=== PATIENT | female | born 1935 | race Caucasian/White ===

== ENCOUNTER 2017-06-26 13:58 | Inpatient (IN) ==
[2017-06-26] MEDS ORDERED: DILTIAZEM 50 MG/10 ML VIAL IV ONE (14:09)
[2017-06-26] MEDS ORDERED: LEVOFLOXACIN INJ 750 MG in PREMIX 1 EACH IV STA (14:15)
[2017-06-26] MEDS ORDERED: DILTIAZEM 50 MG/10 ML VIAL IV STA ×2 (14:15→14:47)
--- NOTE | 2017-06-26 14:21 | Emergency Department Note ---
Arrival - Arrival Chief Complaint: Syncope ED Nursing Triage Note: pt passed out today. pt has increased heart rate. pt was treated a few weeks ago at [facility] for the same thing Mode of Arrival: Stretcher Limitations: Physical Limitation Source: Patient, Family Time Seen by Provider: 06/26/17 14:15 - History of Present Illness HPI Narrative: This 81-year-old white female presents with a history of not feeling well the last several days with complaints of nausea, generalized weakness, and intermittent dizziness. This morning in the presence of the home health nurse she had a syncopal episode without a fall being caught and helped to the bed by the nurse and family members. The spell of loss of consciousness was brief and the patient awoke before EMS arrival. At no time in association with this episode did she complain of chest pain, shortness of breath, diaphoresis, or uzair vomiting. Of note the patient was hospitalized 10 days ago at [facility] for what the family best describes as probable urosepsis. Currently the patient feels uncomfortable and on monitor reveals an SVT of 165. In association with this she does have some shortness of breath but more significant, anxiety. I was informed at the time I advised hospitalization when daughter said she had a mass on her CT at [facility] a year ago which had never been worked up. Likewise there were unaware of any kidney problems. Onset (ago): hour(s) (Patient presents approximately 1 hour post incident) Allergies/Adverse Reactions: Allergies Allergy/AdvReac Type Severity Reaction Status Date / Time Sulfa (Sulfonamide Allergy Unknown/Unable Verified 06/26/17 14:07 Antibiotics) to obtain mycin Allergy Unknown/Unable Uncoded 06/26/17 14:07 to obtain Home Medications: Home Medications Medication Instructions Recorded Confirmed Type Aspirin EC Tab 81 mg PO QPM 06/26/17 06/26/17 History Clopidogrel [Plavix] 75 mg PO QPM 06/26/17 06/26/17 History Duloxetine HCl [Duloxetine] 60 mg PO QPM 06/26/17 06/26/17 History Esomeprazole Magnesium 40 mg PO BID 06/26/17 06/26/17 History [Esomeprazole] Levofloxacin Tab [Levaquin Tab] 500 mg PO Q48H 06/26/17 06/26/17 History Levothyroxine Tab [Synthroid Tab] 75 mcg PO DAILY@0700 06/26/17 06/26/17 History Megestrol Liquid [Megace Liquid] 400 mg PO QAM 06/26/17 06/26/17 History Metoprolol Tartrate 25 mg PO BID 06/26/17 06/26/17 History Nitrofurantoin Macrocrystal 100 mg PO BID 06/26/17 06/26/17 History [Nitrofurantoin] Promethazine HCl 25 mg PO QPM 06/26/17 06/26/17 History Rosuvastatin Calcium [Crestor] 40 mg PO QPM 06/26/17 06/26/17 History Triamterene/Hctz 75-50 Tab 1 tablet PO QAM 06/26/17 06/26/17 History [Maxzide 75-50] Zolpidem Tartrate 10 mg PO BEDTIME 06/26/17 06/26/17 History amLODIPine [Norvasc] 5 mg PO QAM 06/26/17 06/26/17 History Review of System - Review of System 12 point system: reviewed and no additional remarkable complaints except as stated - Review of System Constitutional: Present: as per HPI Respiratory: Present: as per HPI Cardiovascular: Present: as per HPI Gastrointestinal: Present: as per HPI Neurological: Present: as per HPI Medical,Surgical,& Family Hx - Medical History Cardio: History of: Hypertension Neurology: History of: TIA Respiratory: History of: Respiratory Problems (only has the left lung) - Surgical History Cardiac Surgeries: Sugical HX of: Cardiac Surgery (2 triple bypass) - Social History Smoking Status: Never smoker Frequency of Alcohol Use: None Type of Drug Use: None Exam Physical Examination: GENERAL: Frail, pale, chronically ill appearing anxious white female. HEENT: Normocephalic. No trauma. Moist mucous membranes. EOMI. PERRLA. ENT NML NECK: Supple. No adenopathy. CARDIAC: Regular. No murmurs. Heart rate 165 CHEST: Clear to auscultation. No respiratory distress. O2 sat 97% ABDOMEN: Soft. Nontender. Active bowel sounds. EXTREMITIES: No trauma. Normal ROM. No pedal edema. SKIN: No diaphoresis. No rash. NEURO: Alert. Oriented 3. Motor, sensory, vibratory intact. No focal deficits. Vital Signs: Vital Signs Temperature 97.1 F L 06/26/17 14:03 Pulse Rate 163 H 06/26/17 14:03 Respiratory Rate 18 06/26/17 14:03 Blood Pressure 95/67 06/26/17 14:03 O2 Sat by Pulse Oximetry 96 06/26/17 14:03 Course Course Narrative: Patient was treated initially with IV Cardizem with good response but within an hour broke back into a rapid rate requiring retreatment and instillation of a drip. - Reevaluation(s) Reevaluation #1: Advised patient of the need for hospitalization. - Consultations Consultation #1: Discussed with Dr. Johnson who will admit the patient for further evaluation treatment. Results - Labs CBC & BMP: 06/26/17 14:19 06/26/17 14:19 Labs: I have reviewed the laboratory noted the elevated white blood cell count, hypokalemia, renal azotemia, negative enzymes, and elevated BMP. Also noted was a UDS positive for benzos and opiates. - Impressions EKG #1: SVT at 165 with left axis deviation and left bundle branch block pattern. Diffuse ST changes expected with rate. EKG #2 post Cardizem sinus rhythm with frequent PVC with normal OR interval and QRS duration. Nonspecific ST changes with no acute injury pattern noted. - Diagnostic Findings Procedure: Chest x-ray: image reviewed by me, report reviewed by me ( Cardiomegaly with persistence of severely elevated left hemidiaphragm) Disposition Clinical Impression: Supraventricular tachycardia, Syncope, Recent urosepsis, Renal insufficiency, Alleged pelvic mass Case discussed with: patient, patient's family Disposition: Still a Patient Condition: Guarded Time of Disposition: 15:18
[2017-06-26 14:31] LABS: Basophils # 0.1 10*3/uL (0.0-0.2); Basophils % 0.6 % (0.0-0.8); Eosinophils % 5.1 % (0.00-10.9); Hematocrit 35.8 VOL% (35.7-47.0); Hemoglobin 11.6 GM/DL (12.0-16.0); Immature Granulocytes % 0.8 %; Immature Granulocytes Absolute 0.15 #; Lymphocytes # 1.1 10*3/uL (1.4-4.0); Lymphocytes % 5.5 % (21.3-54.2); Mean Corpuscular HGB Conc 32.4 GM/DL (32-36); Mean Corpuscular Hemoglobin 27 PG (27-34); Mean Corpuscular Volume 84.4 FL (87-102); Mean Platelet Volume 9.4 FL (9.6-12.0); Monocytes # 1.2 10*3/uL (0.11-0.8); Monocytes % 6.4 % (1.7-12.7); Neutrophils # 15.7 10*3/uL (1.4-7.4); Neutrophils % 81.6 % (38.7-73.9); Platelet Count 316 T/CUMM (130-400); Red Blood Count 4.24 MC/CUMM (3.8-5.5); Red Cell Distribution Width 15.9 % (9.3-17.3); White Blood Count 19.2 T/CUMM (4-12)
--- NOTE | 2017-06-26 14:45 | CT Report ---
Exam: CT scan of brain without contrast Date: 06/26/2017 Indication: Syncope Comparison: None Patient's classification: Emergency department Technical: Images were obtained from the skull base to the vertex without the use of intravenous contrast. Dose reduction was performed with decreasing kv and mA and automated exposure Total DLP: 1012.1 mGy*cm Findings: Brainstem and cerebellum are demonstrated with mild atrophy of the cerebellum. Diffuse small vessel ischemic changes are present with component of atrophy of the cerebral hemispheres mildly present and enlargement of ventricles. Vascular plaque within the vertebral and internal carotid arteries. The paranasal sinuses globes and cell and mastoids are otherwise intact. Impression: 1. Global atrophy and diffuse small vessel ischemic changes. 2. No acute hemorrhage infarction or mass effect PROCEDURE INTERPRETED AT [facility] DEPARTMENT OF RADIOLOGY Final Report Signed by: Dr. Robert Ibrahim
[2017-06-26] MEDS ORDERED: SODIUM CHLORIDE 0.9% 100 ML IV ONE (14:47)
[2017-06-26] MEDS ORDERED: DILTIAZEM 100 MG VIAL.ADD IV ONE (14:47)
--- NOTE | 2017-06-26 14:47 | XRay Report ---
Exam: XR chest 1V portable Date: 06/26/2017 2:15 PM Indication: Shortness of breath Comparison: 09/26/2014 Technical: AP Findings: There is chronic elevation left hemidiaphragm. Cardiac enlargement is present with previous sternotomy. External cardiac leads are present. No obvious acute infiltrates or effusions clearly demonstrated. ASVD is present. Impression: 1. Persistent cardiomegaly and previous sternotomy without obvious decompensation 2. Chronic elevation left hemidiaphragm similar to previous study PROCEDURE INTERPRETED AT [facility] DEPARTMENT OF RADIOLOGY Final Report Signed by: Dr. Robert Ibrahim
[2017-06-26 14:49] LABS: Alanine Aminotransferase 22 U/L (13-56); Albumin 2.5 G/DL (3.4-5.0); Alkaline Phosphatase 64 U/L (45-117); Aspartate Amino Transferase 35 U/L (0-37); Bilirubin,Total < 0.39 MG/DL (0.2-1.0); Blood Urea Nitrogen 41 MG/DL (7-18); Calcium 8.1 MG/DL (8.5-10.1); Glucose 170 MG/DL (74-106); INR 1.1; Magnesium 2.5 MG/DL (1.8-2.4); Osmolality,Calculated 286.8 MOS/KG (273-304); PT Patient Result 11.2 SECS; Potassium 3.2 MMOL/L (3.5-5.1); Sodium 137 MMOL/L (136-145); Total Protein 5.6 G/DL (6.4-8.3); Troponin I Only < 0.015 NG/ML (0.00-0.045)
[2017-06-26] MEDS: DILTIAZEM INJ 100 MG in SODIUM CHLORIDE 0.9% 100 ML IV SCH (14:49)
[2017-06-26 14:57] LABS: Apearance,Urine CLOUDY (Clear); Bacteria,Urine Occasional /HPF (Few); Bilirubin,Urine Negative (Negative); Blood, Urine Negative (Negative); Glucose,Urine (UA) Negative (Negative); Ketones,Urine 5 mg/dL (Negative); Nitrite,Urine Negative (Negative); Protein,Urine 100 MG/DL; RBC,Urine 1 /HPF (0-4); Squamous Epithelial Cell,Urine Occasional /HPF (0-10); Urine Color Yellow (Yellow); Urine Specific Gravity 1.013 (1.001-1.035); Urine Urobilinogen < 2.0 EU/DL (0.2-1.0); WBC,Urine 40 /HPF (0-6)
[2017-06-26 14:59] LABS: Barbiturates Screen,Urine Negative (Negative); Benzodiazepines Screen,Urine Positive (Negative); Cannabinoid Screen,Urine Negative (Negative); Opiate Screen,Urine Positive (Negative); Phencyclidine Screen,Urine Negative (Negative)
[2017-06-26] MEDS ORDERED: ONDANSETRON 4 MG/2 ML VIAL ONE (15:00)
[2017-06-26] MEDS ORDERED: ONDANSETRON 4 MG/2 ML VIAL IV STA (15:03)
[2017-06-26] MEDS ORDERED: LEVOFLOXACIN INJ 150 ML IV ONE (15:15)
[2017-06-26] MEDS ORDERED: ONDANSETRON 4 MG/2 ML VIAL IV PRN (15:20)
[2017-06-26] MEDS ORDERED: LEVOFLOXACIN 500 MG TABLET PO SCH (17:30)
[2017-06-26 18:18] LABS: Troponin I Only < 0.015 NG/ML (0.00-0.045)
[2017-06-26] MEDS: DULoxetine 30 MG CAPSULE PO SCH (18:18)
[2017-06-26] MEDS: ASPIRIN EC 81 MG TABLET PO SCH (18:18)
[2017-06-26] MEDS: ROSUVASTATIN 20 MG TABLET PO SCH (18:18)
[2017-06-26] MEDS: CLOPIDOGREL 75 MG TABLET PO SCH (18:18)
[2017-06-26] MEDS: PROMETHAZINE 25 MG TABLET PO SCH (18:18)
--- NOTE | 2017-06-26 18:46 | Cardiology History & Physical ---
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 Cartagena Primary CARE provider: Dr. Liriano Ms. Loo is a 81 year old female with a history of coronary artery disease ( status post coronary artery bypass grafting in the remote past at [facility] (1989, 2005)), atrial fibrillation, "SVT", hypertension. The last clinic visit with Dr. Almonte that I can find was in June 2016. The last echocardiogram on record was August 2013 which demonstrated an ejection fraction of 60%. The patient is admitted for syncope. She has been unwell for a couple of months with progressive generalized weakness, ongoing anorexia, nausea and vomiting. She was recently hospitalized at an outside hospital and treated for "urosepsis". She was discharged approximately 10 days ago. In general her health has not rebounded. She has had ongoing nausea, generalized malaise and feeling of unwellness. Today, she again began to feel unwell and was trying to make her way to her bedroom when she felt extremely lightheaded and sat in a chair. They report that she "passed out". In talking to the patient, I do not believe she actually lost consciousness, but rather felt extremely weak and was unable to respond. She did not sustain any trauma with this event, did not hit her head, there was no tongue biting, no witnessed seizure activity, and no bowel or bladder incontinence. She has not had an episode like this before. She does not recall experiencing tachypalpitations prior to this event. She did not experience any chest pain or shortness of breath prior to, during or after this event. Reportedly this happened "in front of her home health nurse" , but they do not believe the blood pressure was checked at that time. When she came to the emergency room, I was told that she had "SVT", and that she "broke" with IV Cardizem. The patient did recognize she was expressing palpitations at that time. These occur infrequently, less than 1 time a month on average, and are usually short-lived, lasting only a few moments. She has not had other episodes of chest discomfort, dyspnea on exertion, lower extremity edema, orthopnea. She has just had this ongoing malaise and fatigue. There is also been a question of a possible "pelvic mass" seen on CT scan approximately 1 year ago that was never worked up. The daughter that has this image "on her cell phone" is not present. Her kidney function is worsening, I do not have a recent creatinine. She has had ongoing nausea and anorexia, no real diarrhea. There is no hematemesis, coffee-ground emesis, melena or bright red blood per rectum. She has felt febrile at home every night this past week but was not checking her temperature. She denies any cough, cold, fever. She is not experiencing any dysuria. Her white count is elevated. Both Levaquin and nitrofurantoin are listed as medications, but the family present and the patient are not sure if she is actually taking both, but they believe she is definitely taking the Levaquin as this was a discharge medication for her. She is not an anticoagulation. She does not have melena, bright red blood per rectum, and has not been falling. She has a generalized debility that has been worsening and she is requiring a tremendous amount of assistance at home. She is living with her son. She has not had any falls. Impression and plan: 1. Presyncope-this appears to be somewhat related to the arrhythmia that she had on presentation. We will work this up and evaluate her metabolic circumstance as well. We will check an echocardiogram and carotid arteries. 2. Arrhythmia-when I initially evaluated the chart, there was not an ECG present. I ordered 1, which still has not been done. However, since my initial evaluation a previous ECG was scanned into the chart which is interpreted as "SVT". By my interpretation it is a wide complex tachycardia with a left bundle branch block morphology and a QRS duration of 130 ms, QTC of 394 ms. On review of her telemetry, while she was tachycardic, this does seem to be irregular with varying width of her QRS it may in fact be rate dependent. She has a history of atrial fibrillation, and she may in fact be having paroxysmal atrial fibrillation with a rate dependent bundle branch block. We will continue to monitor this. We will optimize her rate controlling agents as tolerated. We will cycle her cardiac biomarkers, check an echocardiogram, and observe her on telemetry. When her baseline ECG returns we will evaluate her QT interval since she is on the Levaquin. We will need to consider anticoagulation if this recurs and is clearly atrial fibrillation. 3. Leukocytosis-significance of this is unknown. I will check a chest x-ray, blood cultures. Urinalysis is not clearly dirty, but has been sent for culture. We will continue her Levaquin. 4. Renal insufficiency-duration is unknown. There is a question of a pelvic mass so I will order renal ultrasound to rule out any obstructive process it could be contributing to urinary tract infection and renal insufficiency. 5. Subacute ongoing nausea and anorexia. We will obtain an abdominal ultrasound and consult gastroenterology, obtain KUB. 6. Generalized debility- We will need to get her evaluated for swing bed placement at the time of discharge. 7. History of coronary artery disease-I suspect that this pathology is somewhat stable based on her history. We will cycle her cardiac biomarkers. Home Medications Medication Instructions Recorded Confirmed Type Aspirin EC Tab 81 mg PO QPM 06/26/17 06/26/17 History Clopidogrel [Plavix] 75 mg PO QPM 06/26/17 06/26/17 History Duloxetine HCl [Duloxetine] 60 mg PO QPM 06/26/17 06/26/17 History Esomeprazole Magnesium 40 mg PO BID 06/26/17 06/26/17 History [Esomeprazole] Levofloxacin Tab [Levaquin Tab] 500 mg PO Q48H 06/26/17 06/26/17 History Levothyroxine Tab [Synthroid Tab] 75 mcg PO DAILY@0700 06/26/17 06/26/17 History Megestrol Liquid [Megace Liquid] 400 mg PO QAM 06/26/17 06/26/17 History Metoprolol Tartrate 25 mg PO BID 06/26/17 06/26/17 History Nitrofurantoin Macrocrystal 100 mg PO BID 06/26/17 06/26/17 History [Nitrofurantoin] Promethazine HCl 25 mg PO QPM 06/26/17 06/26/17 History Rosuvastatin Calcium [Crestor] 40 mg PO QPM 06/26/17 06/26/17 History Triamterene/Hctz 75-50 Tab 1 tablet PO QAM 06/26/17 06/26/17 History [Maxzide 75-50] Zolpidem Tartrate 10 mg PO BEDTIME 06/26/17 06/26/17 History amLODIPine [Norvasc] 5 mg PO QAM 06/26/17 06/26/17 History Allergies Allergy/AdvReac Type Severity Reaction Status Date / Time Sulfa (Sulfonamide Allergy Unknown/Unable Verified 06/26/17 14:07 Antibiotics) to obtain mycin Allergy Unknown/Unable Uncoded 06/26/17 14:07 to obtain 12 point system: reviewed and no additional remarkable complaints except as stated Medical,Surgical,& Family Hx - Medical History Cardio: History of: Cardiac Dysrhythmia, CAD, Hypertension Neurology: History of: TIA Respiratory: History of: Respiratory Problems (only has the left lung) - Surgical History Cardiac Surgeries: Sugical HX of: Cardiac Surgery (2 triple bypass) - Social History Smoking Status: Never smoker Frequency of Alcohol Use: None Type of Drug Use: None Lives With:: Children Functional capacity: uses cane/walker Cardiology Physical Exam - Constitutional Vitals: Vital Signs Temp Pulse Resp BP Pulse Ox 97.4 F L 89 20 104/53 90 L 06/26/17 16:35 06/26/17 16:35 06/26/17 16:35 06/26/17 16:35 06/26/17 16:35 Intake and Output 06/26/17 06/26/17 06/26/17 07:59 15:59 23:59 Intake Total 500 / 500 Balance 500 / 500 Intake: Intake - Additional IV 500 / 500 Volume (mLs) Right Antecubital 500 / 500 Other: Weight 57.153 kg 57.153 kg Patient Weight 06/26/17 23:59 Weight 57.153 kg Exam: General appearance: normal weight, no acute distress, elderly and frail with a soft 2/6 holosystolic murmur - Head Head exam: Present: normal inspection, normocephalic, atraumatic. Absent: hematoma, laceration - Eye Eye exam: Present: EOMI. Absent: conjunctival injection, nystagmus, periorbital swelling, scleral icterus, laceration to eyelids Pupils: Present: PERRL. Absent: constricted, dilated, fixed, irregular, unequal - ENT ENT exam: Present: normal exam, normal external ear exam - Neck Neck exam: Present: normal inspection. Absent: lymphadenopathy, meningismus, tenderness, thyromegaly - Respiratory Respiratory exam: Present: clear to auscultation bilaterally. Absent: accessory muscle use, chest wall tenderness - Cardiovascular Cardiovascular exam: Present: regular rate and rhythm. Absent: carotid bruit, gallop, JVD, rubs - GI/Abdominal GI/Abdominal exam: Present: normal bowel sounds, soft. Absent: distended, firm , guarding, hernia, mass, tenderness, rebound. - Extremities Exam Extremities exam: Present: normal inspection, normal capillary refill. Absent: calf tenderness, edema - Back Exam Back exam: Present: normal inspection. Absent: muscle spasm, vertebral tenderness - Neurological Exam Neurological exam: Present: alert, oriented X3, grossly intact without resting or intention tremor - Psychiatric Psychiatric exam: Present: normal affect, normal mood - Skin Skin exam: Present: normal color, warm, dry, intact. Absent: cyanosis, diaphoretic, rash, urticaria Result/EKG - Labs CBC & BMP: 06/26/17 14:19 06/26/17 14:19 Lab Results: I have reviewed the past 24 hour labs Labs: Laboratory Results - last 24 hr 06/26/17 06/26/17 06/26/17 14:15 14:19 14:19 WBC 19.2 H RBC 4.24 Hgb 11.6 L Hct 35.8 MCV 84.4 L MCH 27 MCHC 32.4 RDW 15.9 Plt Count 316 MPV 9.4 L Neut % (Auto) 81.6 H Lymph % (Auto) 5.5 L Callahan % (Auto) 6.4 Eos % (Auto) 5.1 Baso % (Auto) 0.6 Neut # (Auto) 15.7 H Lymph # (Auto) 1.1 L Callahan # (Auto) 1.2 H Eos # (Auto) 1.0 H Baso # (Auto) 0.1 Immature Gran % 0.8 Nucleated RBC % 0.0 Immature Gran # 0.15 Nucleated RBCs # 0.00 Immature Plt Fraction 0.0 INR 1.1 PT Patient/Control Mix 11.2 Sodium Potassium Chloride Carbon Dioxide Anion Gap BUN Creatinine GFR Calculation BUN/Creatinine Ratio Glucose Calculated Osmolality Lactic Acid 3.0 H Calcium Magnesium Total Bilirubin AST ALT Alkaline Phosphatase Total Creatine Kinase CK-MB (CK-2) Troponin I B-Natriuretic Peptide Total Protein Albumin Globulin Albumin/Globulin Ratio Urine Color Urine Appearance Urine pH Ur Specific [place] Urine Protein Urine Glucose (UA) Urine Ketones Urine Blood Urine Nitrate Urine Bilirubin Urine Urobilinogen Urine Leukocytes Urine RBC Urine WBC Urine WBC Clumps Ur Squamous Epith Cells Urine Bacteria Ur Culture Indicated? Urine Opiates Screen Ur Barbiturates Screen Ur Phencyclidine Scrn U Amphetamine/Methamph U Benzodiazepines Scrn U Cocaine Metab Screen U Cannabinoids Screen 06/26/17 06/26/17 06/26/17 14:19 14:19 14:41 WBC RBC Hgb Hct MCV MCH MCHC RDW Plt Count MPV Neut % (Auto) Lymph % (Auto) Callahan % (Auto) Eos % (Auto) Baso % (Auto) Neut # (Auto) Lymph # (Auto) Callahan # (Auto) Eos # (Auto) Baso # (Auto) Immature Gran % Nucleated RBC % Immature Gran # Nucleated RBCs # Immature Plt Fraction INR PT Patient/Control Mix Sodium 137 Potassium 3.2 L Chloride 99 Carbon Dioxide 28 Anion Gap 13.2 BUN 41 H Creatinine 2.60 H GFR Calculation 15 BUN/Creatinine Ratio 15.00 Glucose 170 H Calculated Osmolality 286.8 Lactic Acid Calcium 8.1 L Magnesium 2.5 H Total Bilirubin < 0.39 AST 35 ALT 22 Alkaline Phosphatase 64 Total Creatine Kinase 24 L CK-MB (CK-2) < 1.0 Troponin I < 0.015 B-Natriuretic Peptide 409 H Total Protein 5.6 L Albumin 2.5 L Globulin 3.1 Albumin/Globulin Ratio 0.8 L Urine Color Yellow Urine Appearance Cloudy Urine pH 6.0 Ur Specific [place] 1.013 Urine Protein 100 Urine Glucose (UA) Negative Urine Ketones 5 Urine Blood Negative Urine Nitrate Negative Urine Bilirubin Negative Urine Urobilinogen < 2.0 H Urine Leukocytes Trace Urine RBC 1 Urine WBC 40 Urine WBC Clumps Occasional Ur Squamous Epith Cells Occasional Urine Bacteria Occasional Ur Culture Indicated? Results to follow Urine Opiates Screen Ur Barbiturates Screen Ur Phencyclidine Scrn U Amphetamine/Methamph U Benzodiazepines Scrn U Cocaine Metab Screen U Cannabinoids Screen 06/26/17 06/26/17 14:41 17:35 WBC RBC Hgb Hct MCV MCH MCHC RDW Plt Count MPV Neut % (Auto) Lymph % (Auto) Callahan % (Auto) Eos % (Auto) Baso % (Auto) Neut # (Auto) Lymph # (Auto) Callahan # (Auto) Eos # (Auto) Baso # (Auto) Immature Gran % Nucleated RBC % Immature Gran # Nucleated RBCs # Immature Plt Fraction INR PT Patient/Control Mix Sodium Potassium Chloride Carbon Dioxide Anion Gap BUN Creatinine GFR Calculation BUN/Creatinine Ratio Glucose Calculated Osmolality Lactic Acid Calcium Magnesium Total Bilirubin AST ALT Alkaline Phosphatase Total Creatine Kinase 30 D CK-MB (CK-2) < 1.0 Troponin I < 0.015 B-Natriuretic Peptide Total Protein Albumin Globulin Albumin/Globulin Ratio Urine Color Urine Appearance Urine pH Ur Specific [place] Urine Protein Urine Glucose (UA) Urine Ketones Urine Blood Urine Nitrate Urine Bilirubin Urine Urobilinogen Urine Leukocytes Urine RBC Urine WBC Urine WBC Clumps Ur Squamous Epith Cells Urine Bacteria Ur Culture Indicated? Urine Opiates Screen Positive H Ur Barbiturates Screen Negative Ur Phencyclidine Scrn Negative U Amphetamine/Methamph Negative U Benzodiazepines Scrn Positive H U Cocaine Metab Screen Negative U Cannabinoids Screen Negative - Diagnostic Findings Procedure: CT: report reviewed by me - EKG EKG results: interpreted by me (Wide complex tachycardia with left bundle branch block pattern)
--- NOTE | 2017-06-26 19:26 | XRay Report ---
Exam: XR KUB Date: 06/26/2017 6:58 PM Indication: Nausea and vomiting Comparison: None Technical: Supine abdomen Findings: There is elevation left hemidiaphragm with cardiomegaly and previous sternotomy. Previous cholecystectomy clips are present. Vascular plaque in aorta iliac vessels. Previous right hip pinning with sliding Johnson compression screw and sideplate. Surgical clips in the left inguinal region. Phleboliths are present. External cardiac leads are present. Nonspecific GI pattern is noted. Impression: 1. No obvious acute intra-abdominal pathology clearly demonstrated 2. Vascular calcinosis 3. Chronic elevation left hemidiaphragm and cardiomegaly 4. Previous right hip pinning 5. Previous surgical changes right upper quadrant and left inguinal region PROCEDURE INTERPRETED AT [facility] DEPARTMENT OF RADIOLOGY Final Report Signed by: Dr. Robert Ibrahim
--- NOTE | 2017-06-26 20:40 | Ultrasound Report ---
Exam: US carotid duplex BI Date: 06/26/2017 6:58 PM Indication: Syncopal episode Findings: Grayscale color flow analysis and spectral analysis imaging was performed with image stored and captured. Right Side Flow velocities centimeters per second Common carotid artery: 57 Proximal ICA: 191 Distal ICA: 106 External carotid artery: 73 Vertebral artery: 55 ICA/CCA ratio: 3. Measurements in millimeters Distal ICA: 4.3 Left SIde Flow velocities centimeters per second Common carotid artery: 101 Proximal ICA: 159 Distal ICA: 116 External carotid artery: 82 Vertebral artery: Not visualized ICA/CCA ratio: 1.6 Measurements in millimeters Distal ICA: 5.6 Atherosclerotic plaque in the common carotid artery left greater than right. Considerable plaque in the left carotid bulb and plaque in the right carotid bulb and takeoff the internal carotid artery. Mild spectral broadening Impression: 1. Elevated velocity right internal carotid artery. Findings Suggest approximately 50-70% stenosis of the right ICA 2. Approximately 16-49% stenosis left ICA 3. Nonvisualization of the left vertebral artery. CT angiography or formal arteriography recommended. Today studies were performed utilizing indirect NASCET criteria The ultrasound images were stored and captured PROCEDURE INTERPRETED AT [facility] DEPARTMENT OF RADIOLOGY Final Report Signed by: Dr. Robert Ibrahim
--- NOTE | 2017-06-26 20:43 | Ultrasound Report ---
Exam: US abdomen Date:06/26/2017 6:58 PM Indication: Nausea and vomiting Comparison: None Findings: Liver: 13.3 cm. No focal abnormality present. Gallbladder: Previous cholecystectomy. CBD: 4.2 mm. Pancreas: Normal size shape and configuration Kidneys Right kidney: 7.8 x 4.2 x 4.3 cm. No hydronephrosis or perinephric fluid collection Left kidney: 5.2 x 2.6 x 2.6 cm No hydronephrosis or perinephric fluid collection tiny cysts present in the left kidney Aorta IVC: No obvious aneurysm. The IVC is patent Spleen: 8.5 x 2.7 x 3 cm. Impression: 1. Previous cholecystectomy 2. Atrophic left kidney with some small cyst present.. Findings consistent with a component of medical renal disease with increased echogenicity also present. Ultrasound images were stored and captured PROCEDURE INTERPRETED AT [facility] DEPARTMENT OF RADIOLOGY Final Report Signed by: Dr. Robert Ibrahim
[2017-06-26] MEDS ORDERED: NON-FORMULARY MEDICATION (Esomeprazole Magnesium [Esomeprazole] 40 MG) PO SCH (21:00)
[2017-06-26] MEDS: METOPROLOL TARTRATE 25 MG TABLET PO SCH (21:22)
[2017-06-26] MEDS: ZALEPLON 5 MG CAPSULE PO SCH (21:22)
[2017-06-26] MEDS: NITROFURANTOIN MACROCRYSTALS 100 MG CAPSULE PO SCH (21:22)
[2017-06-26] MEDS: ENOXAPARIN 30 MG/0.3 ML SYRINGE SUBCUT SCH (21:22)
[2017-06-27 00:42] LABS: Troponin I Only < 0.015 NG/ML (0.00-0.045)
[2017-06-27 05:47] LABS: Basophils # 0.1 10*3/uL (0.0-0.2); Basophils % 0.5 % (0.0-0.8); Eosinophils % 6.8 % (0.00-10.9); Hematocrit 32.8 VOL% (35.7-47.0); Hemoglobin 10.6 GM/DL (12.0-16.0); Immature Granulocytes % 0.6 %; Immature Granulocytes Absolute 0.09 #; Lymphocytes # 1.2 10*3/uL (1.4-4.0); Lymphocytes % 8.1 % (21.3-54.2); Mean Corpuscular HGB Conc 32.3 GM/DL (32-36); Mean Corpuscular Hemoglobin 27 PG (27-34); Mean Corpuscular Volume 84.8 FL (87-102); Mean Platelet Volume 9.1 FL (9.6-12.0); Monocytes # 0.8 10*3/uL (0.11-0.8); Monocytes % 5.5 % (1.7-12.7); Neutrophils # 11.5 10*3/uL (1.4-7.4); Neutrophils % 78.5 % (38.7-73.9); Platelet Count 268 T/CUMM (130-400); Red Blood Count 3.87 MC/CUMM (3.8-5.5); Red Cell Distribution Width 15.9 % (9.3-17.3); White Blood Count 14.6 T/CUMM (4-12)
[2017-06-27 06:17] LABS: Magnesium 2.4 MG/DL (1.8-2.4); Osmolality,Calculated 285.5 MOS/KG (273-304); Potassium 3.8 MMOL/L (3.5-5.1)
[2017-06-27 06:22] LABS: Troponin I Only < 0.015 NG/ML (0.00-0.045)
[2017-06-27 06:26] LABS: Risk Ratio 4.11; VLDL CHOLESTEROL 32.2 MG/DL
[2017-06-27] MEDS: LEVOTHYROXINE 75 MCG TABLET PO SCH (06:42)
[2017-06-27] MEDS: DILTIAZEM INJ 100 MG in SODIUM CHLORIDE 0.9% 100 ML IV SCH ×2 (07:30→18:17)
--- NOTE | 2017-06-27 08:41 | EKG Report ---
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
--- NOTE | 2017-06-27 09:28 | EKG Report ---
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
[2017-06-27] MEDS: TRIAMTERENE/HCTZ 75-50 MG TABLET PO SCH (09:58)
[2017-06-27] MEDS: PANTOPRAZOLE 40 MG TABLET PO SCH (09:58)
[2017-06-27] MEDS: MEGESTROL 400 MG/10 ML UDCUP PO SCH (09:58)
[2017-06-27] MEDS: METOPROLOL TARTRATE 25 MG TABLET PO SCH ×2 (09:58→21:58)
[2017-06-27] MEDS: NITROFURANTOIN MACROCRYSTALS 100 MG CAPSULE PO SCH ×2 (09:58→21:57)
--- NOTE | 2017-06-27 10:11 | EKG Report ---
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
--- NOTE | 2017-06-27 14:13 | Gastrointestinal Consult Note ---
Assessment and Plan - Time spent with patient Time spent with patient: Greater than 30 minutes (1) Nausea and vomiting Status: Acute Current Visit: Yes (2) Anorexia Status: Chronic Current Visit: Yes (3) UTI (urinary tract infection) Status: Acute Current Visit: Yes (4) Other specified counseling Status: Acute Current Visit: Yes History of Present Illness History of present illness: Ms. Loo is a 81 year old female Home Medications Medication Instructions Recorded Confirmed Type Aspirin EC Tab 81 mg PO QPM 06/26/17 06/26/17 History Clopidogrel [Plavix] 75 mg PO QPM 06/26/17 06/26/17 History Duloxetine HCl [Duloxetine] 60 mg PO QPM 06/26/17 06/26/17 History Esomeprazole Magnesium 40 mg PO BID 06/26/17 06/26/17 History [Esomeprazole] Levofloxacin Tab [Levaquin Tab] 500 mg PO Q48H 06/26/17 06/26/17 History Levothyroxine Tab [Synthroid Tab] 75 mcg PO DAILY@0700 06/26/17 06/26/17 History Megestrol Liquid [Megace Liquid] 400 mg PO QAM 06/26/17 06/26/17 History Metoprolol Tartrate 25 mg PO BID 06/26/17 06/26/17 History Nitrofurantoin Macrocrystal 100 mg PO BID 06/26/17 06/26/17 History [Nitrofurantoin] Promethazine HCl 25 mg PO QPM 06/26/17 06/26/17 History Rosuvastatin Calcium [Crestor] 40 mg PO QPM 06/26/17 06/26/17 History Triamterene/Hctz 75-50 Tab 1 tablet PO QAM 06/26/17 06/26/17 History [Maxzide 75-50] Zolpidem Tartrate 10 mg PO BEDTIME 06/26/17 06/26/17 History amLODIPine [Norvasc] 5 mg PO QAM 06/26/17 06/26/17 History Allergies Allergy/AdvReac Type Severity Reaction Status Date / Time Sulfa (Sulfonamide Allergy Unknown/Unable Verified 06/26/17 14:07 Antibiotics) to obtain mycin Allergy Unknown/Unable Uncoded 06/26/17 14:07 to obtain Medical,Surgical,& Family Hx - Medical History Cardio: History of: Cardiac Dysrhythmia, CAD, Hypertension Neurology: History of: TIA Respiratory: History of: Respiratory Problems (only has the left lung) - Surgical History Cardiac Surgeries: Sugical HX of: Cardiac Surgery (2 triple bypass) - Social History Smoking Status: Never smoker Frequency of Alcohol Use: None Type of Drug Use: None Exam - Constitutional Vitals: Period Temp Pulse Resp BP Sys/Pate Pulse Ox Last 24 Hr 96.6 F-97.7 F 82-99 12-20 104-137/53-68 90-100 Results - Labs CBC & BMP: 06/27/17 05:32 06/27/17 05:32 Note Addendum: PLEASE NOTE -- automatic citation of patient information is unavoidable in this electronic note. I have made a reasonable effort to review the information cited , but it is not a part of my evaluation, impression, or recommendation unless specifically discussed in the dictated text that follows. As well, voice recognition software was used in the creation of this clinical note. Reasonable effort was made to identify and correct gross errors. Despite proofreading, errors in pot operator may be present, including nonsense verbiage at times. If you encounter such an error, please contact me at for discussion and correction. -- [place] Chief complaint: nausea with anorexia History of present illness: This is a new patient, a 81-year-old female seen by consultation for evaluation of chronic nausea with anorexia. The patient is admitted to cardiology service under the care of Dr. Johnson with a primary diagnosis of pre-syncope with arrhythmia. The patient was admitted last evening through the emergency department with primary complaint of dizziness, lightheadedness, and pre-syncopal episode. Evaluation at that time revealed a tachyarrhythmia initially characterized as supraventricular tachycardia in the emergency department but further reviewed by cardiology with concern for paroxysmal atrial fibrillation and rate dependent bundle branch block. The patient was admitted to the telemetry floor with institution of pharmacologic rate control and plan for further testing to include biomarkers, evolution of rhythm, and mechanical integrity of the heart. On review of systems the patient reported persistent loss of appetite with ongoing nausea but no significant change in her bowel pattern and no overt gastrointestinal bleeding. She has not had prior gastroenterology evaluation for this. With supportive care here, she reports improvement of symptoms and has been able to take some food today. She is accompanied by her two sons, one of which is her primary security auditor and provides much of the history. Both patient and son agree that symptoms have been going on for 6 to 12 months, at least, and seem to be exacerbated with recurrent urinary tract infections. They report a history of gastrointestinal evaluation in the past but the patient believes it has been many years. 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 She is unaware of specifics with respect to this. She is comfortable at the moment. Patient denies fever, chills, night sweats, rigors, headache, neck pain, visual changes, redness of the eyes, dysphagia, odynophagia, difficulty chewing, chest pain, weight loss, hematemesis, diarrhea, hematochezia, melena, proctalgia, constipation, change in bowel pattern generally, skin changes, temperature regulation issues, flushing, easy bleeding/bruising, musculoskeletal pain, mental status change, numbness/weakness in the extremities, yellowing of the eyes/skin, cutaneous eruptions, family history of gastrointestinal cancer and colon polyps, and other complaints in general. Review of systems: 12 point review of systems was negative except as documented above. Outpatient medications: aspirin, Plavix, duloxetine, Nexium, Levaquin, Synthroid , megace, metoprolol, Nitrofurantoin, promethazine, Crestor, Maxzide, zolpidem, Norvasc Inpatient medications: aspirin, Plavix, diltiazem, Cymbalta, Lovenox, [place], Levaquin, Synthroid, megace, Lopressor, Macrodantin, Zofran, Protonix, Phenergen , Crestor, Maxzide, [place] Past Medical History: coronary artery disease status post triple bypass, cardiac dysrhythmia, hypertension, transient ischemic attack, right pulmectomy Social history: negative tobacco. Negative alcohol Family history: no gastrointestinal cancers Physical examination: Vital Signs: Current vital signs reviewed and documented above. General Appearance: lying in bed. Comfortable. No apparent distress. Head: Normocephalic. Neck: Palpation of the neck revealed no abnormalities. Eyes: No scleral icterus. No scleral injection. No conjunctival pallor. Oral Cavity: Odor of breath was normal. No drooling was observed. Lips showed no abnormalities. Floor of the mouth showed no abnormalities. Pharynx: Oropharynx was normal. Lungs: Respiration rhythm was normal but depth was asymmetric with rise on the left. Cardiovascular: Heart rate and rhythm were normal. Abdomen: abdomen was not distended. Abdominal palpation revealed no tenderness and no hepatosplenomegaly. Ascites was not discovered. Abdominal auscultation revealed positive bowel sounds. Musculoskeletal System: Musculoskeletal system was grossly normal. Neurological: level of consciousness was normal. Speech was normal. Skin: General appearance was normal. Color and pigmentation were normal. No skin lesions. Laboratory: white blood count 14.6, hemoglobin 10.6, MCV 85, platelets 268, segmented neutrophils 79%, INR 1.1, PT 11.2, ALT 22, AST 35, alkaline phosphatase 64, total bilirubin 0.4, lactate 3.0, albumin 2.5, amylase 155, lipase 171, creatinine 2.5, urine ketones 5 mg/dL, white blood cells 40 per high powered field, creatinine kinase 28, troponin undetectable Microbiology: urine culture pending Radiology: right upper quadrant ultrasound, June 26, 2017 previous cholecystectomy; atrophic left kidney consistent with medical renal disease; no hepatomegaly or evidence of fibrosis/cirrhosis; normal caliber common bile duct ; normal appearing pancreas; normal size/shape spleen Impressions: #1. Nausea with vomiting with reported alteration in anatomy after removal of the right lung, altered flow of the food stream is likely and mechanical impingement on the gastric corpus is also likely. This would probably, reliably , lead to nausea and may be the entire underlying problem. As well, the patient seems to have urinary tract infection which can lead to nausea and polypharmacy which can lead to nausea. The first step in evaluation should probably be a upper G.I. series to better characterize the current anatomy followed, likely, by upper endoscopy for mucosal inspection. In the interim, continued proton pump inhibitor is reasonable as is continued antibiotic. We will follow up with further recommendations pending results of these exams. #2. Anorexia -- with altered mechanics, decreased appetite is likely. As discussed above, further evaluation will be necessary to understand the anatomy prior to making a reliable set of recommendations. #3. Urinary tract infection -- urinalysis is consistent with same. It is common for patients in this age range to have systemic symptoms associated with typical infections, and it is likely that this patient's urinary tract infection is contributing to her gastrointestinal symptoms. Whether this is the primary cause of ongoing anorexia, particularly, is another question. #4. Other specified counseling -- The patient was seen for greater than 30 minutes. The patient was counseled for greater than 50% of this time regarding differential diagnosis, likely diagnosis, diagnostic and therapeutic alternatives, risks/benefits/alternatives of medications and procedures, and plan of care generally. The patient expressed understanding and wishes to proceed. Recommendations: -- upper G.I. series -- upper endoscopy based on findings of radiology -- continue proton pump inhibitor -- continue anti-emetic -- clear liquid diet for now -- thank you for this consultation. Dr. Pond will assume G.I. care for this patient tomorrow.
--- NOTE | 2017-06-27 14:18 | Cardiology Progress Note ---
Assessment and Plan - Time spent with patient Time spent with patient: Greater than 30 minutes (Examination chart review documentation) (1) Chronic renal insufficiency, stage III (moderate) Status: Acute Current Visit: Yes (2) History of pelvic mass Status: Acute Current Visit: Yes (3) Pre-syncope Status: Acute Current Visit: Yes (4) Atrial fibrillation Status: Chronic Current Visit: Yes Qualifiers: Atrial fibrillation type: paroxysmal Qualified Code(s): I48.0 - Paroxysmal atrial fibrillation (5) Wide-complex tachycardia Status: Acute Current Visit: Yes (6) Coronary artery disease Status: Chronic Current Visit: Yes Qualifiers: Coronary Disease-Associated Artery/Lesion type: [place] artery [place] vs. transplanted heart: [place] heart Associated angina: without angina Qualified Code(s): I25.10 - Atherosclerotic heart disease of [place] coronary artery without angina pectoris (7) Leukocytosis Status: Acute Current Visit: Yes (8) Debility Status: Chronic Current Visit: Yes (9) Nausea and vomiting Status: Acute Current Visit: Yes (10) Anorexia Status: Chronic Current Visit: Yes (11) UTI (urinary tract infection) Status: Acute Current Visit: Yes Cardiology - PN: Subj Interval history: I discussed with Dr. Johnson earlier today I saw and examined the patient with her family at the bedside. The patient has had a progressive downhill course of the last several weeks and actually had a 7 or 8 day admission to the [facility]. Yesterday she had an episode where she had near syncope and does not sound like she had true syncope is not clear what was associated with palpitations or not she simply came for evaluation and subsequent transferred here for admission to the cardiology service. The patient has lost weight she had poor p.o. intake she allegedly has a pelvic mass her abdominal ultrasound was unremarkable but no pelvic ultrasound was performed. Her daughter is present and shows me a single image of what looks like a CT scan with a mass. This was from approximately 1 year ago. Very difficult for me to know what to make of this single slice image on a small iPhone. The patient allegedly has not been evaluated or worked up for this. Please see Dr. Johnson H&P for the details of this. The patient has had several strips and EKGs with this wide complex tachycardia. In some areas it looks like there is clearly a change of morphology and probably represents rate dependent left bundle branch block. There is however one EKG with where there is no R-wave progression across the anterior precordium. This very well may be a rate dependent bundle branch block but is concerning for VT. Exam (Progress Note) - Constitutional Vitals: Period Temp Pulse Resp BP Sys/Pate Pulse Ox Last 24 Hr 96.6 F-97.7 F 82-99 12-20 104-137/53-68 90-100 General appearance: normal weight, other (She appears very frail) - Head Head exam: Present: normal inspection - Eye Eye exam: Present: EOMI Pupils: Present: LISA - ENT ENT exam: Present: normal exam - Respiratory Respiratory exam: Present: clear to auscultation bilaterally - Cardiovascular Cardiovascular exam: Present: regular rate and rhythm (No gallop) - GI/Abdominal GI/Abdominal exam: Present: normal bowel sounds (I do not feel an abdominal mass ) - Extremities Exam Extremities exam: Present: normal inspection - Neurological Exam Neurological exam: Present: oriented X3 - Psychiatric Psychiatric exam: Present: normal affect, depressed - Skin Skin exam: Present: normal color, warm, dry Result/EKG - Labs CBC & BMP: 06/27/17 05:32 06/27/17 05:32 Labs: Laboratory Results - last 24 hr 06/26/17 06/26/17 06/26/17 14:15 14:19 14:19 WBC 19.2 H RBC 4.24 Hgb 11.6 L Hct 35.8 MCV 84.4 L MCH 27 MCHC 32.4 RDW 15.9 Plt Count 316 MPV 9.4 L Neut % (Auto) 81.6 H Lymph % (Auto) 5.5 L [place] % (Auto) 6.4 Eos % (Auto) 5.1 Baso % (Auto) 0.6 Neut # (Auto) 15.7 H Lymph # (Auto) 1.1 L [place] # (Auto) 1.2 H Eos # (Auto) 1.0 H Baso # (Auto) 0.1 Immature Gran % 0.8 Nucleated RBC % 0.0 Immature Gran # 0.15 Nucleated RBCs # 0.00 Immature Plt Fraction 0.0 INR 1.1 PT Patient/Control Mix 11.2 Sodium Potassium Chloride Carbon Dioxide Anion Gap BUN Creatinine GFR Calculation BUN/Creatinine Ratio Glucose Calculated Osmolality Lactic Acid 3.0 H Calcium Magnesium Total Bilirubin AST ALT Alkaline Phosphatase Total Creatine Kinase CK-MB (CK-2) Troponin I B-Natriuretic Peptide Total Protein Albumin Globulin Albumin/Globulin Ratio Triglycerides Cholesterol LDL Cholesterol VLDL Cholesterol HDL Cholesterol Heart Disease Risk Ratio Amylase Lipase Urine Color Urine Appearance Urine pH Ur Specific [place] Urine Protein Urine Glucose (UA) Urine Ketones Urine Blood Urine Nitrate Urine Bilirubin Urine Urobilinogen Urine Leukocytes Urine RBC Urine WBC Urine WBC Clumps Ur Squamous Epith Cells Urine Bacteria Ur Culture Indicated? Urine Opiates Screen Ur Barbiturates Screen Ur Phencyclidine Scrn U Amphetamine/Methamph U Benzodiazepines Scrn U Cocaine Metab Screen U Cannabinoids Screen 06/26/17 06/26/17 06/26/17 14:19 14:19 14:41 WBC RBC Hgb Hct MCV MCH MCHC RDW Plt Count MPV Neut % (Auto) Lymph % (Auto) [place] % (Auto) Eos % (Auto) Baso % (Auto) Neut # (Auto) Lymph # (Auto) [place] # (Auto) Eos # (Auto) Baso # (Auto) Immature Gran % Nucleated RBC % Immature Gran # Nucleated RBCs # Immature Plt Fraction INR PT Patient/Control Mix Sodium 137 Potassium 3.2 L Chloride 99 Carbon Dioxide 28 Anion Gap 13.2 BUN 41 H Creatinine 2.60 H GFR Calculation 15 BUN/Creatinine Ratio 15.00 Glucose 170 H Calculated Osmolality 286.8 Lactic Acid Calcium 8.1 L Magnesium 2.5 H Total Bilirubin < 0.39 AST 35 ALT 22 Alkaline Phosphatase 64 Total Creatine Kinase 24 L CK-MB (CK-2) < 1.0 Troponin I < 0.015 B-Natriuretic Peptide 409 H Total Protein 5.6 L Albumin 2.5 L Globulin 3.1 Albumin/Globulin Ratio 0.8 L Triglycerides Cholesterol LDL Cholesterol VLDL Cholesterol HDL Cholesterol Heart Disease Risk Ratio Amylase Lipase Urine Color Yellow Urine Appearance Cloudy Urine pH 6.0 Ur Specific [place] 1.013 Urine Protein 100 Urine Glucose (UA) Negative Urine Ketones 5 Urine Blood Negative Urine Nitrate Negative Urine Bilirubin Negative Urine Urobilinogen < 2.0 H Urine Leukocytes Trace Urine RBC 1 Urine WBC 40 Urine WBC Clumps Occasional Ur Squamous Epith Cells Occasional Urine Bacteria Occasional Ur Culture Indicated? Results to follow Urine Opiates Screen Ur Barbiturates Screen Ur Phencyclidine Scrn U Amphetamine/Methamph U Benzodiazepines Scrn U Cocaine Metab Screen U Cannabinoids Screen 06/26/17 06/26/17 06/26/17 14:41 17:35 19:25 WBC RBC Hgb Hct MCV MCH MCHC RDW Plt Count MPV Neut % (Auto) Lymph % (Auto) [place] % (Auto) Eos % (Auto) Baso % (Auto) Neut # (Auto) Lymph # (Auto) [place] # (Auto) Eos # (Auto) Baso # (Auto) Immature Gran % Nucleated RBC % Immature Gran # Nucleated RBCs # Immature Plt Fraction INR PT Patient/Control Mix Sodium Potassium Chloride Carbon Dioxide Anion Gap BUN Creatinine GFR Calculation BUN/Creatinine Ratio Glucose Calculated Osmolality Lactic Acid Calcium Magnesium Total Bilirubin AST ALT Alkaline Phosphatase Total Creatine Kinase 30 D CK-MB (CK-2) < 1.0 Troponin I < 0.015 B-Natriuretic Peptide Total Protein Albumin Globulin Albumin/Globulin Ratio Triglycerides Cholesterol LDL Cholesterol VLDL Cholesterol HDL Cholesterol Heart Disease Risk Ratio Amylase 155 H Lipase 171.0 Urine Color Urine Appearance Urine pH Ur Specific [place] Urine Protein Urine Glucose (UA) Urine Ketones Urine Blood Urine Nitrate Urine Bilirubin Urine Urobilinogen Urine Leukocytes Urine RBC Urine WBC Urine WBC Clumps Ur Squamous Epith Cells Urine Bacteria Ur Culture Indicated? Urine Opiates Screen Positive H Ur Barbiturates Screen Negative Ur Phencyclidine Scrn Negative U Amphetamine/Methamph Negative U Benzodiazepines Scrn Positive H U Cocaine Metab Screen Negative U Cannabinoids Screen Negative 06/27/17 06/27/17 06/27/17 00:01 05:32 05:32 WBC 14.6 H RBC 3.87 Hgb 10.6 L Hct 32.8 L MCV 84.8 L MCH 27 MCHC 32.3 RDW 15.9 Plt Count 268 MPV 9.1 L Neut % (Auto) 78.5 H Lymph % (Auto) 8.1 L [place] % (Auto) 5.5 Eos % (Auto) 6.8 Baso % (Auto) 0.5 Neut # (Auto) 11.5 H Lymph # (Auto) 1.2 L [place] # (Auto) 0.8 Eos # (Auto) 1.0 H Baso # (Auto) 0.1 Immature Gran % 0.6 Nucleated RBC % 0.0 Immature Gran # 0.09 Nucleated RBCs # 0.00 Immature Plt Fraction 0.0 INR PT Patient/Control Mix Sodium 139 Potassium 3.8 Chloride 101 Carbon Dioxide 28 Anion Gap 13.8 BUN 36 H Creatinine 2.50 H GFR Calculation 16 BUN/Creatinine Ratio 14.00 Glucose 110 H Calculated Osmolality 285.5 Lactic Acid Calcium 8.0 L Magnesium 2.4 Total Bilirubin AST ALT Alkaline Phosphatase Total Creatine Kinase 27 CK-MB (CK-2) < 1.0 Troponin I < 0.015 B-Natriuretic Peptide Total Protein Albumin Globulin Albumin/Globulin Ratio Triglycerides Cholesterol LDL Cholesterol VLDL Cholesterol HDL Cholesterol Heart Disease Risk Ratio Amylase Lipase Urine Color Urine Appearance Urine pH Ur Specific [place] Urine Protein Urine Glucose (UA) Urine Ketones Urine Blood Urine Nitrate Urine Bilirubin Urine Urobilinogen Urine Leukocytes Urine RBC Urine WBC Urine WBC Clumps Ur Squamous Epith Cells Urine Bacteria Ur Culture Indicated? Urine Opiates Screen Ur Barbiturates Screen Ur Phencyclidine Scrn U Amphetamine/Methamph U Benzodiazepines Scrn U Cocaine Metab Screen U Cannabinoids Screen 06/27/17 06/27/17 06/27/17 05:32 05:32 05:32 WBC RBC Hgb Hct MCV MCH MCHC RDW Plt Count MPV Neut % (Auto) Lymph % (Auto) [place] % (Auto) Eos % (Auto) Baso % (Auto) Neut # (Auto) Lymph # (Auto) [place] # (Auto) Eos # (Auto) Baso # (Auto) Immature Gran % Nucleated RBC % Immature Gran # Nucleated RBCs # Immature Plt Fraction INR PT Patient/Control Mix Sodium Potassium Chloride Carbon Dioxide Anion Gap BUN Creatinine GFR Calculation BUN/Creatinine Ratio Glucose Calculated Osmolality Lactic Acid Calcium Magnesium Total Bilirubin AST ALT Alkaline Phosphatase Total Creatine Kinase 28 CK-MB (CK-2) < 1.0 Troponin I < 0.015 B-Natriuretic Peptide 607 H Total Protein Albumin Globulin Albumin/Globulin Ratio Triglycerides 161 H Cholesterol 111 LDL Cholesterol 55.0 VLDL Cholesterol 32.2 HDL Cholesterol 27 L Heart Disease Risk Ratio 4.11 Amylase Lipase Urine Color Urine Appearance Urine pH Ur Specific [place] Urine Protein Urine Glucose (UA) Urine Ketones Urine Blood Urine Nitrate Urine Bilirubin Urine Urobilinogen Urine Leukocytes Urine RBC Urine WBC Urine WBC Clumps Ur Squamous Epith Cells Urine Bacteria Ur Culture Indicated? Urine Opiates Screen Ur Barbiturates Screen Ur Phencyclidine Scrn U Amphetamine/Methamph U Benzodiazepines Scrn U Cocaine Metab Screen U Cannabinoids Screen - EKG EKG results: interpreted by me (As per HPI)
--- NOTE | 2017-06-27 16:59 | ECHO Report ---
Eze Dania 06/27/2017 Exam Date: 11:46 Referring Physician: Jeanne Ladd Technologist: FARIDA Age: 81 Ht (in): 62 Wt (lb): 126 FExam Location: [facility] Gender: Echo [id number]: Pre-syncope, Cardiac arrhythmia, unIndications:pecified, Wide complex tachycardia, CAD with previous CABG, BP: 133 / 66 HR: 87 SinusRhythm: goodTechnical Quality: IMPRESSIONS Left ventricular ejection fraction is estimated at 60 %. There is grade 2 diastolic dysfunction. There is no regional wall motion abnormality. Mildly thickened mitral valve. Mild mitral valve regurgitation. Tricuspid regurgitation velocities suggest a RVSP of 49 mmHg plus the right atrial pressure. MEASUREMENTS (Male / Female) Normal Values 2D ECHO LV Diastolic Diameter PLAX 3.9 cm 4.2 - 5.9 / 3.9 - 5.3 cm LV Systolic Diameter PLAX 2.0 cm LV Fractional Shortening PLAX 49.7 % IVS Diastolic Thickness 0.8 cm 0.6 - 1.0 / 0.6 - 0.9 cm LVPW Diastolic Thickness 0.8 cm 0.6 - 1.0 / 0.6 - 0.9 cm RV Internal Dim ED PLAX 2.6 cm Aortic Root Diameter 3.9 cm LA Systolic Diameter LX 4.5 cm 3.0 - 4.0 / 2.7 - 3.8 cm DOPPLER TR Peak Velocity 352.0 cm/s TR Peak Gradient 49.6 mmHg FINDINGS Left Ventricle Normal left ventricular cavity size. Normal left ventricular wall thickness. Left ventricular ejection fraction is estimated at 60 %. There is grade 2 diastolic dysfunction. There is no regional wall motion abnormality. Right Ventricle The right ventricle is normal in size and function. Right Atrium The right atrium is mildly enlarged. Left Atrium The left atrium is mildly enlarged. Mitral Valve Mildly thickened mitral valve. Mild mitral valve regurgitation. Aortic Valve Mild aortic valve calcification. No aortic valve stenosis. Trace to mild aortic valve regurgitation. Tricuspid Valve Morphologically normal tricuspid valve. Mild tricuspid valve regurgitation. Tricuspid regurgitation velocities suggest a RVSP of 49 mmHg plus the right atrial pressure. Pulmonic Valve Morphologically normal pulmonic valve. Mild pulmonary valve regurgitation. Pericardium Normal pericardium without effusion. Aorta Normal ascending aorta dimension. Carmen Cartagena (Electronically Signed) 27 June 2017 Final Date: 16:59
[2017-06-27] MEDS: CLOPIDOGREL 75 MG TABLET PO SCH (18:16)
[2017-06-27] MEDS: PROMETHAZINE 25 MG TABLET PO SCH (18:16)
[2017-06-27] MEDS: DULoxetine 30 MG CAPSULE PO SCH (18:16)
[2017-06-27] MEDS: ASPIRIN EC 81 MG TABLET PO SCH (18:17)
[2017-06-27] MEDS: ROSUVASTATIN 20 MG TABLET PO SCH (18:17)
[2017-06-27] MEDS: ZALEPLON 5 MG CAPSULE PO SCH (21:57)
[2017-06-27] MEDS: ENOXAPARIN 30 MG/0.3 ML SYRINGE SUBCUT SCH (21:57)
[2017-06-28 05:33] LABS: Basophils # 0.1 10*3/uL (0.0-0.2); Basophils % 0.6 % (0.0-0.8); Eosinophils # 1.2 10*3/uL (0.0-0.87); Hematocrit 31.1 VOL% (35.7-47.0); Hemoglobin 10.2 GM/DL (12.0-16.0); Immature Granulocytes % 0.8 %; Immature Granulocytes Absolute 0.12 #; Lymphocytes # 1.2 10*3/uL (1.4-4.0); Lymphocytes % 7.6 % (21.3-54.2); Mean Corpuscular HGB Conc 32.8 GM/DL (32-36); Mean Corpuscular Hemoglobin 28 PG (27-34); Mean Corpuscular Volume 84.3 FL (87-102); Mean Platelet Volume 9.6 FL (9.6-12.0); Monocytes # 1.2 10*3/uL (0.11-0.8); Monocytes % 7.9 % (1.7-12.7); Neutrophils # 11.6 10*3/uL (1.4-7.4); Neutrophils % 75.1 % (38.7-73.9); Platelet Count 265 T/CUMM (130-400); Red Blood Count 3.69 MC/CUMM (3.8-5.5); White Blood Count 15.4 T/CUMM (4-12)
[2017-06-28 05:54] LABS: Calcium 8.6 MG/DL (8.5-10.1); Magnesium 2.3 MG/DL (1.8-2.4); Osmolality,Calculated 278.8 MOS/KG (273-304); Potassium 3.6 MMOL/L (3.5-5.1)
[2017-06-28] MEDS: LEVOTHYROXINE 75 MCG TABLET PO SCH (06:16)
--- NOTE | 2017-06-28 09:53 | Ultrasound Report ---
Exam: US pelvic complete Date: 06/28/2017 4:00 AM Comparison: None Indication: History of pelvic mass, anorexia Technique:[Multiple transabdominal real-time scans were obtained pelvis. Color-flow scans obtained. Ultrasound images were captured and stored.] Findings: The patient states that she has had a complete hysterectomy. 92 x 83 x 70 mm cystic abnormality in the mid pelvis. No significant septations are noted within the finding. Impression: Status post apparent hysterectomy. Indeterminant 92 x 83 x 70 mm cystic masslike finding in the mid pelvis. There are no significant septations within the finding. This finding is probably ovarian in nature but the because of the size of the finding, follow-up is recommended. PROCEDURE INTERPRETED AT [facility] DEPARTMENT OF RADIOLOGY Final Report Signed by: Dr. Minerva Cristina
[2017-06-28] MEDS: MEGESTROL 400 MG/10 ML UDCUP PO SCH (11:27)
[2017-06-28] MEDS: NITROFURANTOIN MACROCRYSTALS 100 MG CAPSULE PO SCH ×2 (11:27→21:23)
[2017-06-28] MEDS: TRIAMTERENE/HCTZ 75-50 MG TABLET PO SCH (11:27)
[2017-06-28] MEDS: METOPROLOL TARTRATE 25 MG TABLET PO SCH (11:27)
[2017-06-28] MEDS: PANTOPRAZOLE 40 MG TABLET PO SCH (11:27)
--- NOTE | 2017-06-28 11:51 | Fluoroscopy Report ---
Exam: FL upper GI w small bowel Date: 06/28/2017 12:00 AM Comparison: Multiple prior chest x-ray Indication: Nausea and vomiting with history of prior chest surgery Technique:[Fluoroscopy time of 3.0 minutes documented. 80 images were saved including fluoroscopic images utilizing fluoroscopy grab technique as well as overhead films.] Findings: The heart is enlarged with prior median sternotomy, cholecystectomy, and post operative findings in the right hip and left femoral location. Diffuse arterial calcifications with degenerative changes. Chronic significant elevation of the left hemidiaphragm with what may be additional postoperative findings in the left chest. Under fluoroscopic control the patient swallowed barium without difficulty. There is some shortening of the esophagus with no high-grade stricture identified. Tertiary contractions of the esophagus. There is cephalad displacement of the stomach into the left upper quadrant with some rotation of the stomach and associated incomplete distention of the proximal stomach. The duodenal bulb and loop have an unremarkable appearance. Barium was followed through the small bowel and reach the colon at 1 hour and 30 minutes. At fluoroscopy the terminal ileum has a normal appearance. Small small bowel diverticula are noted. Impression: Cardiomegaly with multiple postoperative findings. Chronic elevation of the left hemidiaphragm which may be related to prior additional left chest surgery. There is shortening of the esophagus with some malrotation of the stomach which is displaced superiorly with findings which can be seen with additional paraesophageal hernia. Associated stretching of the stomach with areas of incomplete distention which may be related this process. CT after bowel cleansing may provide additional information. If symptoms persist, endoscopy may be helpful for further evaluation. Small small bowel diverticula. PROCEDURE INTERPRETED AT [facility] DEPARTMENT OF RADIOLOGY Final Report Signed by: Dr. Minerva Cristina
--- NOTE | 2017-06-28 12:34 | Electrophysiology Consultation ---
History of Present Illness - Data of Consult Patient: new to practice Consult date: 06/28/17 Requesting Physician: Carmen Cartagena - Consult Narrative Reason for consult: WQRS tachy, syncope History of present illness: Ms. Loo is a 81 year old female with a history of coronary artery disease ( status post coronary artery bypass grafting in the remote past at [facility] (1989, 2005)). She is quite debilitated. She was recently hospitalized for urosepsis and was recovering at home, with the help of his home nurse. When she tried to stand up and walk with a walker, she became very lightheaded and then she passed out. She was noted to be tachycardic and cyanotic. Heart rate was 165. In the emergency room, showed a white crest tachycardia, LBBB morphology, poor R-wave progression. No obvious VA dissociation or capture beats. IV Cardizem was administered and the notes mentioned that she then reverted to narrow QRS, sinus rhythm. No tracings with the rhythm conversions were captured. On telemetry, she is in sinus rhythm, with PACs and PVCs, with retrograde conducted P waves post ventricular ectopy. She has occasional PVCs, mostly uniform, the morphology does not match the morphology of her white crest tachycardia. Although she has a history of atrial fibrillation, I did not see an EKG of this arrhythmia in her prior medical records. She is not anticoagulated. She had prior episodes of presyncope, but this most recent follow the most severe. She also has a history of chronic severe nausea/vomiting, GI evaluation is pending. 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 Also, an 8 x 10 cm pelvic mass, which appears to be cystic, but no definite diagnosis on this yet. She is a poor historian. Denies palpitation chest pain leg swelling. Most of the history was ever obtained from chart review and her nurse. Echo showed a normal ejection fraction. Based on EKG narrow QRS, with nonspecific report changes. Normal QTC. She also had AK I on CKD, recurrent UTIs. She is still on IV Cardizem drip. Sinus rhythm, blood pressure normal range. She usually has a very poor appetite. , WBC, amylase elevated. CC: Camille Johnson, - Home Medications and Allergies Home Medications: Home Medications Medication Instructions Recorded Confirmed Type Aspirin EC Tab 81 mg PO QPM 06/26/17 06/26/17 History Clopidogrel [Plavix] 75 mg PO QPM 06/26/17 06/26/17 History Duloxetine HCl [Duloxetine] 60 mg PO QPM 06/26/17 06/26/17 History Esomeprazole Magnesium 40 mg PO BID 06/26/17 06/26/17 History [Esomeprazole] Levofloxacin Tab [Levaquin Tab] 500 mg PO Q48H 06/26/17 06/26/17 History Levothyroxine Tab [Synthroid Tab] 75 mcg PO DAILY@0700 06/26/17 06/26/17 History Megestrol Liquid [Megace Liquid] 400 mg PO QAM 06/26/17 06/26/17 History Metoprolol Tartrate 25 mg PO BID 06/26/17 06/26/17 History Nitrofurantoin Macrocrystal 100 mg PO BID 06/26/17 06/26/17 History [Nitrofurantoin] Promethazine HCl 25 mg PO QPM 06/26/17 06/26/17 History Rosuvastatin Calcium [Crestor] 40 mg PO QPM 06/26/17 06/26/17 History Triamterene/Hctz 75-50 Tab 1 tablet PO QAM 06/26/17 06/26/17 History [Maxzide 75-50] Zolpidem Tartrate 10 mg PO BEDTIME 06/26/17 06/26/17 History amLODIPine [Norvasc] 5 mg PO QAM 06/26/17 06/26/17 History Allergies/Adverse Reactions: Allergies Allergy/AdvReac Type Severity Reaction Status Date / Time Sulfa (Sulfonamide Allergy Unknown/Unable Verified 06/26/17 14:07 Antibiotics) to obtain mycin Allergy Unknown/Unable Uncoded 06/26/17 14:07 to obtain Medical,Surgical,& Family Hx - Medical History Cardio: History of: Cardiac Dysrhythmia, CAD, Hypertension Neurology: History of: TIA Respiratory: History of: Respiratory Problems (only has the left lung) - Surgical History Cardiac Surgeries: Sugical HX of: Cardiac Surgery (2 triple bypass) - Social History Smoking Status: Never smoker Frequency of Alcohol Use: None Type of Drug Use: None 12 point system: reviewed and no additional remarkable complaints except as stated Exam - Constitutional Vitals: Period Temp Pulse Resp BP Sys/Pate Pulse Ox Last 24 Hr 96.8 F-98.1 F 62-97 12-20 126-134/59-75 95-98 General appearance: normal weight, no acute distress - Head Head exam: Present: normal inspection, normocephalic - Eye Eye exam: Absent: conjunctival injection, scleral icterus Pupils: Absent: dilated - Neck Neck exam: Present: normal inspection - Respiratory Respiratory exam: Present: clear to auscultation bilaterally. Absent: chest wall tenderness - Cardiovascular Cardiovascular exam: Present: irregular rhythm. Absent: JVD, systolic murmur - GI/Abdominal GI/Abdominal exam: Present: normal bowel sounds. Absent: distended - Extremities Exam Extremities exam: Present: normal inspection, normal capillary refill. Absent: edema - Back Exam Back exam: Present: normal inspection - Neurological Exam Neurological exam: Present: alert, oriented X3 - Psychiatric Psychiatric exam: Present: normal affect, normal mood - Skin Skin exam: Present: normal color, warm. Absent: cyanosis Results - Labs CBC & BMP: 06/28/17 03:48 06/28/17 03:48 Lab Results: I have reviewed the past 24 hour labs Assessment and Plan (1) Wide-complex tachycardia Status: Acute Assessment and plan: 81-year-old female, presenting with syncope, wide QRS tachycardia. She converted back to sinus rhythm, are getting IV Cardizem. On the monitor, she had recurrent runs of narrow and wQRS tachycardia, sometimes with warm up, which would be more suggestive of 80/SVT, with rate related aberrancy. However , some tracing showed white crest tachycardia, with beats suggestive of capture beats, suggesting VT. although, on prior prior EKGs, she has evidence of PVCs with VA conduction, raising the suspicion for AVRT/AVNRT. The arrhythmia was hemodynamically significant and led to syncope, is recurrent. Although there is history of atrial fibrillation, I did not see these documented with an EKG in her medical records. 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 -She will need a diagnostic EP study to establish her arrhythmia mechanism. For SVT, medical management or ablation can be pursued, for VT, she would need a defibrillator and medical management. -There is no A. fib at this time or clearly documented episodes in her record. Continue dual antiplatelets for severe CAD. Continue to monitor on telemetry. -D/c cardizem drip. Increase metoprolol to 100 mg twice daily. We may need to add an antiarrhythmic, if the arrhythmia remains frequently recurrent. Given her severe renal dysfunction and CAD, amiodarone may be the only option. -I recommend to pursue EP evaluation, when GI workup and the pelvis mass workup is complete and prognosis is established. If this takes time, I recommend to screen for eligibility for a LifeVest - the presentation is high risk for sudden cardiac , however, due to the specifics of reimbursement for his device, she may not qualify Current Visit: Yes (2) Arrhythmia Status: Acute Current Visit: Yes (3) Chronic renal insufficiency, stage III (moderate) Status: Acute Current Visit: Yes (4) History of pelvic mass Status: Acute Current Visit: Yes (5) Leukocytosis Status: Acute Current Visit: Yes (6) Nausea and vomiting Status: Acute Current Visit: Yes (7) UTI (urinary tract infection) Status: Acute Current Visit: Yes (8) Atrial fibrillation Status: Chronic Current Visit: Yes Qualifiers: Atrial fibrillation type: paroxysmal Qualified Code(s): I48.0 - Paroxysmal atrial fibrillation
[2017-06-28] MEDS ORDERED: METOPROLOL TARTRATE 50 MG TABLET PO ONE (12:56)
--- NOTE | 2017-06-28 13:42 | Gastrointestinal Progress Note ---
<Denise Rivera - Last Filed: 06/28/17 13:39> Assessment and Plan (1) Nausea and vomiting Status: Acute Assessment and plan: 06/28-upper GI series today with results noted as below. Fair appetite reported. Plan at this time to proceed with EGD tomorrow to further evaluate findings of upper GI. Plan an addendum to follow Dr. Pond. Current Visit: Yes Gastroenterology - PN: Subj Interval history: CC: Nausea and vomiting, weight loss Patient is seen awake and alert sitting up in bed with family at bedside. States she is feeling about the same today. She underwent an upper GI series this morning with results noted as shortening of the esophagus with some malrotation of the stomach displaced with paraesophageal hernia as well as tertiary contractions. She has been eating very minimal over the last several days. Denies any abdominal pain at this time. Abdomen is soft, nontender. ROS: Denies shortness breath or chest pain Exam (Progress Note) - Constitutional Vitals: Period Temp Pulse Resp BP Sys/Apte Pulse Ox Last 24 Hr 96.8 F-98.1 F 62-97 12-20 126-134/59-75 95-98 General appearance: normal weight, no acute distress - Head Head exam: Present: normal inspection, normocephalic - Eye Eye exam: Present: other (Lids and conjunctive are unremarkable). Absent: scleral icterus - ENT ENT exam: Present: normal exam, normal oropharynx - Neck Neck exam: Present: normal inspection - Respiratory Respiratory exam: Present: clear to auscultation bilaterally. Absent: rales, rhonchi, wheezes - Cardiovascular Cardiovascular exam: Present: regular rate and rhythm. Absent: diastolic murmur , JVD, systolic murmur - GI/Abdominal GI/Abdominal exam: Present: normal bowel sounds, soft. Absent: ascites, distended, mass, organomegaly, tenderness - Extremities Exam Extremities exam: Present: normal inspection, full ROM - Back Exam Back exam: Present: normal inspection - Neurological Exam Neurological exam: Present: alert, oriented X3 - Psychiatric Psychiatric exam: Present: normal affect, normal mood - Skin Skin exam: Present: normal color, warm, dry Results - Labs CBC & BMP: 06/28/17 03:48 06/28/17 03:48 Lab Results: I have reviewed the past 24 hour labs <Clarence Pond Last Filed: 06/28/17 17:30> Exam (Progress Note) - Constitutional Vitals: Period Temp Pulse Resp BP Sys/Pate Pulse Ox Last 24 Hr 96.9 F-98.6 F 62-97 12-20 116-134/57-75 95-97 Results - Labs CBC & BMP: 06/28/17 03:48 06/28/17 03:48
--- NOTE | 2017-06-28 14:01 | Gastrointestinal Consult Note ---
Assessment and Plan (1) Nausea and vomiting Status: Acute Assessment and plan: 06/28-upper GI series today with results noted as below. Fair appetite reported. Plan at this time to proceed with EGD tomorrow to further evaluate findings of upper GI. Plan an addendum to follow Dr. Pond. Current Visit: Yes History of Present Illness Chief complaint: History of anemia, rectal bleeding History of present illness: Ms. Loo is a 81 year old female who was admitted to the hospital today after she woke up in the middle the night and had numbness in her left leg. Patient states that she woke up to go to the bathroom she could not move her left leg became alarmed. She came to the emergency room for further evaluation and at that time she had a venous Doppler study done that showed a progressively occluding DVT to the left lower extremity. She has been admitted for further workup at this time. Patient was discharged from the hospital recently after inpatient stay for GI bleed which required a blood transfusion that also resulted in a development of a DVT to her LLE which required IVC placement. During that admission, patient underwent a workup with an EGD which showed superficial antral gastric ulcer and then a colonoscopy which showed colon polyps (tubular adenoma) and diverticulosis. She also had a small bowel follow- through done which showed no acute findings. During that hospitalization, she was transfused 4 units of packed red blood cells and was discharged with an H&H of 08/29 on June 04. Her H&H today is 08/29 is well. Patient states that she has in the past 2 or 3 days seen a small amount of bright red blood with her bowel movements. She does admit that she has been increasingly constipated and she knows that she has some hemorrhoids with some pain and burning with defecation. She denies any abdominal pain, nausea or vomiting. She has been placed on a heparin infusion at this time. Home Medications Medication Instructions Recorded Confirmed Type Aspirin EC Tab 81 mg PO QPM 06/26/17 06/26/17 History Clopidogrel [Plavix] 75 mg PO QPM 06/26/17 06/26/17 History Duloxetine HCl [Duloxetine] 60 mg PO QPM 06/26/17 06/26/17 History Esomeprazole Magnesium 40 mg PO BID 06/26/17 06/26/17 History [Esomeprazole] Levofloxacin Tab [Levaquin Tab] 500 mg PO Q48H 06/26/17 06/26/17 History Levothyroxine Tab [Synthroid Tab] 75 mcg PO DAILY@0700 06/26/17 06/26/17 History Megestrol Liquid [Megace Liquid] 400 mg PO QAM 06/26/17 06/26/17 History Metoprolol Tartrate 25 mg PO BID 06/26/17 06/26/17 History Nitrofurantoin Macrocrystal 100 mg PO BID 06/26/17 06/26/17 History [Nitrofurantoin] Promethazine HCl 25 mg PO QPM 06/26/17 06/26/17 History Rosuvastatin Calcium [Crestor] 40 mg PO QPM 06/26/17 06/26/17 History Triamterene/Hctz 75-50 Tab 1 tablet PO QAM 06/26/17 06/26/17 History [Maxzide 75-50] Zolpidem Tartrate 10 mg PO BEDTIME 06/26/17 06/26/17 History amLODIPine [Norvasc] 5 mg PO QAM 06/26/17 06/26/17 History Allergies Allergy/AdvReac Type Severity Reaction Status Date / Time Sulfa (Sulfonamide Allergy Unknown/Unable Verified 06/26/17 14:07 Antibiotics) to obtain mycin Allergy Unknown/Unable Uncoded 06/26/17 14:07 to obtain Medical,Surgical,& Family Hx - Medical History Cardio: History of: Cardiac Dysrhythmia, CAD, Hypertension Neurology: History of: TIA Respiratory: History of: Respiratory Problems (only has the left lung) - Surgical History Cardiac Surgeries: Sugical HX of: Cardiac Surgery (2 triple bypass) - Social History Smoking Status: Never smoker Frequency of Alcohol Use: None Type of Drug Use: None Exam - Constitutional Vitals: Period Temp Pulse Resp BP Sys/Pate Pulse Ox Last 24 Hr 96.8 F-98.1 F 62-97 12-20 126-134/59-75 95-98 Results - Labs CBC & BMP: 06/28/17 03:48 06/28/17 03:48
[2017-06-28] MEDS: LEVOFLOXACIN INJ 750 MG in PREMIX 1 EACH IV SCH (14:28)
[2017-06-28] MEDS ORDERED: ZALEPLON 5 MG CAPSULE PO PRN (16:16)
--- NOTE | 2017-06-28 16:48 | Cardiology Progress Note ---
Gareht London Lesley, DORYS, am scribing for, and in the presence of, Pancho Perdomo MD 16:48. Assessment and Plan - Time spent with patient Time spent with patient: Greater than 30 minutes (Record review, assessment, and documented) (1) Pre-syncope Status: Acute Current Visit: Yes (2) Arrhythmia Status: Acute Current Visit: Yes (3) Atrial fibrillation Status: Acute Current Visit: Yes Qualifiers: Atrial fibrillation type: paroxysmal Qualified Code(s): I48.0 - Paroxysmal atrial fibrillation (4) Coronary artery disease Status: Chronic Current Visit: Yes Qualifiers: Coronary Disease-Associated Artery/Lesion type: [place]av[place]am artery [place] vs. transplanted heart: yu[place]aviatam heart Associated angina: without angina Qualified Code(s): I25.10 - Atherosclerotic heart disease of [place]av[place]am coronary artery without angina pectoris (5) Nausea and vomiting Status: Chronic Current Visit: Yes Cardiology - PN: Subj Interval history: ANIMAL SCIENCE INSTRUCTOR: Dr. Cartagena SUMMARY: Ms. Loo is an 81 WF, admitted for syncope. The patient has had progressive generalized weakness with ongoing anorexia, nausea, and vomiting. The patient was noted to have "SVT" that "broke" with IV Cardizem in the ER. The patient did recognize she was having palpitations at that time. Significant cardiac history includes: coronary artery disease (status post coronary artery bypass grafting in the remote past at [facility] (1989, 2005)), atrial fibrillation, "SVT", hypertension. The last clinic visit with Dr. Cartagena that I can find was in June 2016. The last echocardiogram on record was August 2013 which demonstrated an ejection fraction of 60%. Dr. Barth has been consulted due to wide complex tachycardia. There is also a possible "pelvic mass" discovered on CT accidentally 1 year ago that was never worked up. She has had some ongoing nausea and anorexia, no diarrhea. Denies hematochezia emesis, coffee-ground emesis, melena, or bright red blood per rectum. She is not on anticoagulation. Patient is taking Levaquin after being diagnosed and treated for urosepsis on recent hospitalization. 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 The patient has been maintained on a Cardizem drip, will stop this and start oral metoprolol 100 mg twice daily. We may need to add amiodarone due to renal dysfunction and CAD. Sinus rhythm with occasional ventricular premature complexes rate controlled in the 90s, blood pressure in the normal range. Dr. Barth recommends an EP evaluation when GI workup pelvic mass workup is complete and prognosis is established. If this process is prolonged, LifeVest is recommended due to high risk for sudden cardiac with her presentation. Labs reviewed: WBC is 15,000, H&H 10 and 31; Electrolytes WNL; Creatinine 2.4. Assessment and plan: Impression and plan: 1. Presyncope-this appears to be somewhat related to the arrhythmia that she had on presentation, EP evaluation recommended. Elevated velocity right internal carotid artery. Findings Suggest approximately 50-70% stenosis of the right ICA, Approximately 16-49% stenosis left ICA 2. Arrhythmia-wide complex tachycardia, stopped Cardizem drip, started metoprolol 100 mg twice daily as per EP recommendation. Consider oral amiodarone due to kidney function and CAD. If the patient is discharged, a LifeVest should be considered as per EP recommendation. 3. Leukocytosis-significance of this is unknown continue Levaquin blood cultures negative at 1 day, urine culture negative at 48 hours. 4. Renal insufficiency-duration is unknown, mid pelvic mass 92 X 83 X 70 mm; atrophic left kidney with small cysts. 5. Subacute ongoing nausea and anorexia. GI work up pending. 6. Generalized debility- We will need to get her evaluated for swing bed placement at the time of discharge. 7. History of coronary artery disease-I suspect that this pathology is somewhat stable based on her history, cardiac biomarkers negative. Exam (Progress Note) - Constitutional Vitals: Period Temp Pulse Resp BP Sys/Pate Pulse Ox Last 24 Hr 96.8 F-98.1 F 62-97 12-20 126-134/59-75 95-98 Exam: General: Appears well with no apparent distress. Pleasant and cooperative. Appears comfortable. HEENT: PERRL, normocephalic, atraumatic. Mucous membranes moist. No jaundice noted. Conjunctiva moist and clear, sclerae anicteric. Neck: No JVD/HJR, no thyromegaly or lymphadenopathy noted. No carotid bruit appreciated. Cardiac: Regular rate and rhythm. No murmur rub or gallop. PMI is nondisplaced. Lungs: Clear to auscultation without accessory muscle use to assist the respiratory pattern. No oxygen required] Abdomen: Soft, bowel sounds normoactive. Nontender and nondistended. No abdominal bruit or thrill noted. No masses noted. Musculoskeletal: No fluid collection. Decreased range of motion is noted. Extremities: No clubbing, cyanosis noted. No edema noted. Upper extremity pulses 2+. Lower extremity pulses 2+. Capillary refill less than 3 seconds. Skin: No unusual lesions or rashes. No skin breakdown appreciated. Neuro: Awake, alert and oriented to self and place. Moves all extremities well without hemiparesis or paralysis. No essential tremor is appreciated. Result/EKG - Labs CBC & BMP: 06/28/17 03:48 06/28/17 03:48 Lab Results: I have reviewed the past 24 hour labs Labs: Laboratory Results - last 24 hr 06/28/17 06/28/17 03:48 03:48 WBC 15.4 H RBC 3.69 L Hgb 10.2 L Hct 31.1 L MCV 84.3 L MCH 28 MCHC 32.8 RDW 16.0 Plt Count 265 MPV 9.6 Neut % (Auto) 75.1 H Lymph % (Auto) 7.6 L [place] % (Auto) 7.9 Eos % (Auto) 8.0 Baso % (Auto) 0.6 Neut # (Auto) 11.6 H Lymph # (Auto) 1.2 L [place] # (Auto) 1.2 H Eos # (Auto) 1.2 H Baso # (Auto) 0.1 Immature Gran % 0.8 Nucleated RBC % 0.0 Immature Gran # 0.12 Nucleated RBCs # 0.00 Immature Plt Fraction 0.0 Sodium 137 Potassium 3.6 Chloride 99 Carbon Dioxide 27 Anion Gap 14.6 BUN 30 H Creatinine 2.40 H GFR Calculation 17 BUN/Creatinine Ratio 12.00 Glucose 103 Calculated Osmolality 278.8 Calcium 8.6 Magnesium 2.3 - EKG EKG results: sinus rhythm Leanne London Michael, MD, personally performed the services described in this documentation, ascribed by Tracy Servin NP in my presence, and it is both accurate and complete 648 .
[2017-06-28] MEDS: ROSUVASTATIN 20 MG TABLET PO SCH (18:02)
[2017-06-28] MEDS: DULoxetine 30 MG CAPSULE PO SCH (18:02)
[2017-06-28] MEDS: PROMETHAZINE 25 MG TABLET PO SCH (18:02)
[2017-06-28] MEDS: ASPIRIN EC 81 MG TABLET PO SCH (18:03)
[2017-06-28] MEDS: CLOPIDOGREL 75 MG TABLET PO SCH (18:03)
[2017-06-28] MEDS: METOPROLOL TARTRATE 100 MG TABLET PO SCH (21:22)
[2017-06-28] MEDS: ZALEPLON 5 MG CAPSULE PO SCH (21:22)
[2017-06-28] MEDS: ENOXAPARIN 30 MG/0.3 ML SYRINGE SUBCUT SCH (21:23)
[2017-06-29 05:33] LABS: Basophils # 0.1 10*3/uL (0.0-0.2); Basophils % 0.6 % (0.0-0.8); Hematocrit 31.5 VOL% (35.7-47.0); Hemoglobin 10.1 GM/DL (12.0-16.0); Immature Granulocytes % 1.2 %; Lymphocytes # 1.3 10*3/uL (1.4-4.0); Lymphocytes % 7.6 % (21.3-54.2); Mean Corpuscular HGB Conc 32.1 GM/DL (32-36); Mean Corpuscular Hemoglobin 28 PG (27-34); Mean Corpuscular Volume 86.3 FL (87-102); Mean Platelet Volume 9.7 FL (9.6-12.0); Monocytes # 1.3 10*3/uL (0.11-0.8); Monocytes % 7.6 % (1.7-12.7); Neutrophils # 12.6 10*3/uL (1.4-7.4); Platelet Count 254 T/CUMM (130-400); Red Blood Count 3.65 MC/CUMM (3.8-5.5); Red Cell Distribution Width 16.5 % (9.3-17.3); White Blood Count 16.4 T/CUMM (4-12)
[2017-06-29] MEDS: LEVOTHYROXINE 75 MCG TABLET PO SCH (06:23)
[2017-06-29 07:16] LABS: Calcium 8.5 MG/DL (8.5-10.1); Magnesium 2.3 MG/DL (1.8-2.4); Osmolality,Calculated 279.8 MOS/KG (273-304); Potassium 3.5 MMOL/L (3.5-5.1)
--- NOTE | 2017-06-29 07:19 | Event Note ---
Patient's son has requested to cancel GI services while she is inpatient and they wish to follow-up with Dr. Balck upon discharge. Discussed this in depth with patient's son on yesterday as well as with Dr. Pond.
--- NOTE | 2017-06-29 07:48 | Electrophysiology Progress Not ---
Assessment and Plan (1) Wide-complex tachycardia Status: Acute Assessment and plan: 81-year-old female, presenting with syncope, wide QRS tachycardia. She converted back to sinus rhythm, are getting IV Cardizem. On the monitor, she had recurrent runs of narrow and wQRS tachycardia, sometimes with warm up, which would be more suggestive of 80/SVT, with rate related aberrancy. However , some tracing showed white crest tachycardia, with beats suggestive of capture beats, suggesting VT. although, on prior prior EKGs, she has evidence of PVCs with VA conduction, raising the suspicion for AVRT/AVNRT. The arrhythmia was hemodynamically significant and led to syncope, is recurrent. Although there is history of atrial fibrillation, I did not see these documented with an EKG in her medical records. 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 The arrhythmia and clinical course so far suggestive of SVT/aberrancy, although , some tracings on the telemetry raise the suspicion of double tachycardia. Comorbidities, hypotension limited antiarrhythmic options. -Continue metoprolol. -I recommend to proceed with an EP study/ablation, once her overall condition improves, we can plan for Wednesday p.m. She appears to have incessant SVT/ aberrancy, with prior syncope. No demand ischemia at this time despite her severe CAD. -Suggest to rule out sepsis, evaluate the chronic large cystic pelvis mass. If she does have VT on EPS, an ICD can be considered, but ongoing infection will need to be ruled out and she must not have a comorbidity, limiting life expectancy to less than 1 year. -If the arrhythmia remains asymptomatic, and hemodynamically tolerated, I would hold off adding amiodarone at this time, to prevent interaction with the planned EP study. We may assess response to IV adenosine, or IV Cardizem, if intervention is needed due to symptoms or hemodynamic instability, before definitive treatment can be pursued Current Visit: Yes (2) Arrhythmia Status: Acute Current Visit: Yes (3) Chronic renal insufficiency, stage III (moderate) Status: Acute Current Visit: Yes (4) History of pelvic mass Status: Acute Current Visit: Yes (5) Leukocytosis Status: Acute Current Visit: Yes (6) Nausea and vomiting Status: Chronic Current Visit: Yes (7) UTI (urinary tract infection) Status: Acute Current Visit: Yes (8) Atrial fibrillation Status: Acute Current Visit: Yes Qualifiers: Atrial fibrillation type: paroxysmal Qualified Code(s): I48.0 - Paroxysmal atrial fibrillation Electrophysiology Subjective Interval history: She had sustained wide QRS tachycardia, last night, lasting for hours. Not symptomatic. Initiation with PAC, also, with suspected VA conduction, then after 2 rounds of SVT, QRS widens. Review of telemetry strips, shows occasional variation in QRS morphology, suggestive of captured beats, however, without significant change in RVR. She also has occasional premature atrial beats, with slurred QRS onset, but no preexcitation at baseline. Blood pressure was preserved, she is hypotensive today. WBC still elevated. Exam - Constitutional Vitals: Period Temp Pulse Resp BP Sys/Pate Pulse Ox Last 24 Hr 96.4 F-98.6 F 82-98 16-20 84-133/49-62 90-97 General appearance: normal weight, no acute distress, mild distress - Head Head exam: Present: normal inspection, normocephalic - Eye Eye exam: Absent: conjunctival injection, scleral icterus Pupils: Absent: dilated - ENT ENT exam: Present: normal external ear exam - Neck Neck exam: Present: normal inspection - Respiratory Respiratory exam: Present: clear to auscultation bilaterally. Absent: chest wall tenderness - Cardiovascular Cardiovascular exam: Present: regular rate and rhythm, systolic murmur. Absent : JVD - GI/Abdominal GI/Abdominal exam: Present: normal bowel sounds. Absent: distended - Extremities Exam Extremities exam: Present: normal inspection, normal capillary refill, edema (1+ ) - Neurological Exam Neurological exam: Present: alert - Psychiatric Psychiatric exam: Present: normal affect, normal mood - Skin Skin exam: Present: normal color, warm. Absent: cyanosis Results - Labs CBC & BMP: 06/29/17 05:26 06/29/17 05:26 Lab Results: I have reviewed the past 24 hour labs
[2017-06-29] MEDS: NITROFURANTOIN MACROCRYSTALS 100 MG CAPSULE PO SCH ×2 (08:41→20:55)
[2017-06-29] MEDS: PANTOPRAZOLE 40 MG TABLET PO SCH (08:41)
[2017-06-29] MEDS: MEGESTROL 400 MG/10 ML UDCUP PO SCH (08:41)
[2017-06-29] MEDS: TRIAMTERENE/HCTZ 75-50 MG TABLET PO SCH (08:41)
[2017-06-29] MEDS: METOPROLOL TARTRATE 100 MG TABLET PO SCH ×2 (08:41→20:55)
--- NOTE | 2017-06-29 13:33 | Cardiology Progress Note ---
Gareth London Lesley, NP, am scribing for, and in the presence of, Pancho Perdomo MD 13:32. Assessment and Plan - Time spent with patient Time spent with patient: Greater than 30 minutes (Assessment and documentation) (1) Arrhythmia Status: Acute Assessment and plan: An EP study is planned for Wednesday with possible ablation. Current Visit: Yes (2) Pre-syncope Status: Acute Current Visit: Yes (3) Atrial fibrillation Status: Acute Current Visit: Yes Qualifiers: Atrial fibrillation type: paroxysmal Qualified Code(s): I48.0 - Paroxysmal atrial fibrillation (4) Coronary artery disease Status: Chronic Current Visit: Yes Qualifiers: Coronary Disease-Associated Artery/Lesion type: [place] artery [place] vs. transplanted heart: [place] heart Associated angina: without angina Qualified Code(s): I25.10 - Atherosclerotic heart disease of [place] coronary artery without angina pectoris (5) Nausea and vomiting Status: Chronic Current Visit: Yes (6) Pelvic cyst Status: Chronic Current Visit: Yes Cardiology - PN: Subj Interval history: APPLICATION DEVELOPMENT CONSULTANT: Dr. Cartagena SUMMARY: Ms. Loo is an 81 WF, admitted for syncope. The patient has had progressive generalized weakness with ongoing anorexia, nausea, and vomiting. The patient was noted to have "SVT" that "broke" with IV Cardizem in the ER. The patient did recognize she was having palpitations at that time. Significant cardiac history includes: coronary artery disease (status post coronary artery bypass grafting in the remote past at [facility] (1989, 2005)), atrial fibrillation, "SVT", hypertension. The last clinic visit with Dr. Cartagena that I can find was in June 2016. The last echocardiogram on record was August 2013 which demonstrated an ejection fraction of 60%. Dr. Barth has been consulted due to wide complex tachycardia. There is also a possible "pelvic mass" discovered on CT accidentally 1 year ago that was never worked up. She has had some ongoing nausea and anorexia, no diarrhea. Denies hematochezia emesis, coffee-ground emesis, melena, or bright red blood per rectum. She is not on anticoagulation. Patient is taking Levaquin after being diagnosed and treated for urosepsis on recent hospitalization. 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 The patient has been maintained on a Cardizem drip, will stop this and start oral metoprolol 100 mg twice daily. We may need to add amiodarone due to renal dysfunction and CAD. Sinus rhythm with occasional ventricular premature complexes rate controlled in the 90s, blood pressure in the normal range. Dr. Barth recommends an EP evaluation when GI workup pelvic mass workup is complete and prognosis is established. If this process is prolonged, LifeVest is recommended due to high risk for sudden cardiac with her presentation. Labs reviewed: WBC is 15,000, H&H 10 and 31; Electrolytes WNL; Creatinine 2.4. JUNE 29, 2017: The patient family has deferred GI workup, and wished to follow -up with Dr. Black at [place] upon discharge. We will consult CLOTHING EXAMINER for workup of pelvic cyst that was found on CT scan approximately one year ago. Pelvic ultrasound reveals the patient is status post hysterectomy. There is an indeterminate 92 x 83 x 70 mm cystic masslike finding in the mid pelvis without septations. Finding is thought probably ovarian in nature because of the size. Dr. Barth would like to rule out infection prior to patient undergoing EP evaluation. Labs reveal a white count of 16,000, H&H 1031 which is stable. Electrolytes WNL. Creatinine 2.7, BUN 33. Patient has had sustained wide QRS tachycardia, remains asymptomatic. Plan for EP evaluation with possible ablation on Wednesday. Impression and plan: 1. Presyncope-this appears to be somewhat related to the arrhythmia that she had on presentation, EP evaluation recommended. Elevated velocity right internal carotid artery. Findings Suggest approximately 50-70% stenosis of the right ICA, Approximately 16-49% stenosis left ICA 2. Arrhythmia-wide complex tachycardia, continue metoprolol 100 mg twice daily. Consider oral amiodarone due to kidney function and CAD. If the patient is discharged, a LifeVest should be considered.. We discussed the case with Dr. Herrera today who is planning an EP study and potential ablation on Wednesday. 3. Leukocytosis-significance of this is unknown continue Levaquin blood cultures negative at 1 day, urine culture negative at 48 hours. 4. Renal insufficiency-duration is unknown, mid pelvic mass 92 X 83 X 70 mm; atrophic left kidney with small cysts. 5. Subacute ongoing nausea and anorexia. Patient prefers to follow-up with Dr. Black upon discharge for chronic GI issues. 6. Generalized debility- We will need to get her evaluated for swing bed placement at the time of discharge. 7. History of coronary artery disease-I suspect that this pathology is somewhat stable based on her history, cardiac biomarkers negative. Exam (Progress Note) - Constitutional Vitals: Period Temp Pulse Resp BP Sys/Pate Pulse Ox Last 24 Hr 96.4 F-98.6 F 80-98 16-20 84-133/49-79 90-98 Exam: General: Appears well with no apparent distress. Pleasant and cooperative. Appears comfortable. HEENT: PERRL, normocephalic, atraumatic. Mucous membranes moist. No jaundice noted. Conjunctiva moist and clear, sclerae anicteric. Neck: No JVD/HJR, no thyromegaly or lymphadenopathy noted. No carotid bruit appreciated. Cardiac: Regular rate and rhythm. No murmur rub or gallop. PMI is nondisplaced. Lungs: Clear to auscultation without accessory muscle use to assist the respiratory pattern. No oxygen required] Abdomen: Soft, bowel sounds normoactive. Nontender and nondistended. No abdominal bruit or thrill noted. No masses noted. Musculoskeletal: No fluid collection. Decreased range of motion is noted. Extremities: No clubbing, cyanosis noted. No edema noted. Upper extremity pulses 2+. Lower extremity pulses 2+. Capillary refill less than 3 seconds. Skin: No unusual lesions or rashes. No skin breakdown appreciated. Neuro: Awake, alert and oriented to self and place. Moves all extremities well without hemiparesis or paralysis. No essential tremor is appreciated. Result/EKG - Labs CBC & BMP: 06/29/17 05:26 06/29/17 05:26 Lab Results: I have reviewed the past 24 hour labs Labs: Laboratory Results - last 24 hr 06/28/17 06/29/17 06/29/17 17:32 05:26 05:26 WBC 16.4 H RBC 3.65 L Hgb 10.1 L Hct 31.5 L MCV 86.3 L MCH 28 MCHC 32.1 RDW 16.5 Plt Count 254 MPV 9.7 Neut % (Auto) 77.0 H Lymph % (Auto) 7.6 L [place] % (Auto) 7.6 Eos % (Auto) 6.0 Baso % (Auto) 0.6 Neut # (Auto) 12.6 H Lymph # (Auto) 1.3 L [place] # (Auto) 1.3 H Eos # (Auto) 1.0 H Baso # (Auto) 0.1 Immature Gran % 1.2 Nucleated RBC % 0.0 Immature Gran # 0.20 Nucleated RBCs # 0.00 Sodium 137 Potassium 3.5 Chloride 99 Carbon Dioxide 29 Anion Gap 12.5 BUN 33 H Creatinine 2.70 H GFR Calculation 14 BUN/Creatinine Ratio 12.00 Glucose 100 POC Glucose 119 H Calculated Osmolality 279.8 Calcium 8.5 Magnesium 2.3 06/29/17 06/29/17 07:14 07:20 WBC RBC Hgb Hct MCV MCH MCHC RDW Plt Count MPV Neut % (Auto) Lymph % (Auto) [place] % (Auto) Eos % (Auto) Baso % (Auto) Neut # (Auto) Lymph # (Auto) [place] # (Auto) Eos # (Auto) Baso # (Auto) Immature Gran % Nucleated RBC % Immature Gran # Nucleated RBCs # Sodium Potassium Chloride Carbon Dioxide Anion Gap BUN Creatinine GFR Calculation BUN/Creatinine Ratio Glucose POC Glucose < 20 L* 119 H Calculated Osmolality Calcium Magnesium - Diagnostic Findings Procedure: Ultrasound: report reviewed by me - EKG EKG results: interpreted by me, sinus rhythm (wide complex tachycardia) Leanne London Michael, MD, personally performed the services described in this documentation, ascribed by Tracy Servin NP in my presence, and it is both accurate and complete 332 .
[2017-06-29] MEDS: CLOPIDOGREL 75 MG TABLET PO SCH (18:02)
[2017-06-29] MEDS: PROMETHAZINE 25 MG TABLET PO SCH (18:02)
[2017-06-29] MEDS: ROSUVASTATIN 20 MG TABLET PO SCH (18:02)
[2017-06-29] MEDS: ASPIRIN EC 81 MG TABLET PO SCH (18:02)
[2017-06-29] MEDS: DULoxetine 30 MG CAPSULE PO SCH (18:02)
[2017-06-29] MEDS: ENOXAPARIN 30 MG/0.3 ML SYRINGE SUBCUT SCH (20:54)
[2017-06-29] MEDS: ZALEPLON 5 MG CAPSULE PO SCH (20:55)
[2017-06-30] MEDS: LEVOTHYROXINE 75 MCG TABLET PO SCH (06:06)
[2017-06-30 06:41] LABS: Basophils # 0.1 10*3/uL (0.0-0.2); Basophils % 0.9 % (0.0-0.8); Eosinophils # 1.1 10*3/uL (0.0-0.87); Eosinophils % 6.6 % (0.00-10.9); Hematocrit 29.7 VOL% (35.7-47.0); Hemoglobin 9.7 GM/DL (12.0-16.0); Immature Granulocytes Absolute 0.33 #; Lymphocytes # 1.4 10*3/uL (1.4-4.0); Lymphocytes % 8.5 % (21.3-54.2); Mean Corpuscular HGB Conc 32.7 GM/DL (32-36); Mean Corpuscular Hemoglobin 28 PG (27-34); Mean Corpuscular Volume 84.1 FL (87-102); Mean Platelet Volume 9.2 FL (9.6-12.0); Monocytes # 1.1 10*3/uL (0.11-0.8); Monocytes % 6.9 % (1.7-12.7); Neutrophils # 12.1 10*3/uL (1.4-7.4); Neutrophils % 75.1 % (38.7-73.9); Platelet Count 266 T/CUMM (130-400); Red Blood Count 3.53 MC/CUMM (3.8-5.5); Red Cell Distribution Width 16.3 % (9.3-17.3); White Blood Count 16.2 T/CUMM (4-12)
[2017-06-30 07:11] LABS: Calcium 8.6 MG/DL (8.5-10.1); Magnesium 2.3 MG/DL (1.8-2.4); Osmolality,Calculated 277.1 MOS/KG (273-304); Potassium 3.4 MMOL/L (3.5-5.1)
--- NOTE | 2017-06-30 08:00 | Electrophysiology Progress Not ---
Assessment and Plan (1) Wide-complex tachycardia Status: Acute Assessment and plan: 81-year-old female, presenting with syncope, wide QRS tachycardia. She converted back to sinus rhythm, are getting IV Cardizem. On the monitor, she had recurrent runs of narrow and wQRS tachycardia, sometimes with warm up, which would be more suggestive of 80/SVT, with rate related aberrancy. However , some tracing showed white crest tachycardia, with beats suggestive of capture beats, suggesting VT. although, on prior prior EKGs, she has evidence of PVCs with VA conduction, raising the suspicion for AVRT/AVNRT. The arrhythmia was hemodynamically significant and led to syncope, is recurrent. Although there is history of atrial fibrillation, I did not see these documented with an EKG in her medical records. 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 The arrhythmia and clinical course so far suggestive of SVT/aberrancy, although , some tracings on the telemetry raise the suspicion of double tachycardia. Comorbidities, hypotension limited antiarrhythmic options. -Continue metoprolol. -Awaiting results of SKIMMER/pelvic workup. Creatinine worsened, WBC still elevated, she is feeling unwell. -Unless her general condition deteriorates or other issues are identified, plan to proceed with EP study/ablation on Wednesday. Arrhythmia appears to be SVT/ aberrancy, which was quite incessant and led to syncope Current Visit: Yes (2) Arrhythmia Status: Acute Current Visit: Yes (3) Chronic renal insufficiency, stage III (moderate) Status: Acute Current Visit: Yes (4) History of pelvic mass Status: Acute Current Visit: Yes (5) Leukocytosis Status: Acute Current Visit: Yes (6) Nausea and vomiting Status: Chronic Current Visit: Yes (7) UTI (urinary tract infection) Status: Acute Current Visit: Yes (8) Atrial fibrillation Status: Acute Current Visit: Yes Qualifiers: Atrial fibrillation type: paroxysmal Qualified Code(s): I48.0 - Paroxysmal atrial fibrillation Electrophysiology Subjective Interval history: She is still feeling unwell. WBC elevated, no fever, creat increasing. No recurrence of sustained SVT. Blood pressure is normal. Exam - Constitutional Vitals: Period Temp Pulse Resp BP Sys/Pate Pulse Ox Last 24 Hr 96.6 F-98.5 F 80-97 18-20 123-148/65-81 92-98 General appearance: normal weight, no acute distress - Head Head exam: Present: normal inspection, normocephalic - Eye Eye exam: Absent: conjunctival injection, scleral icterus Pupils: Absent: dilated - ENT ENT exam: Present: normal external ear exam - Neck Neck exam: Present: normal inspection - Respiratory Respiratory exam: Present: clear to auscultation bilaterally. Absent: chest wall tenderness - Cardiovascular Cardiovascular exam: Present: regular rate and rhythm, systolic murmur. Absent : JVD - GI/Abdominal GI/Abdominal exam: Present: normal bowel sounds. Absent: distended - Extremities Exam Extremities exam: Present: normal inspection, normal capillary refill. Absent: edema - Neurological Exam Neurological exam: Present: alert, oriented X3 - Psychiatric Psychiatric exam: Present: normal affect, normal mood - Skin Skin exam: Present: normal color, warm. Absent: cyanosis Results - Labs CBC & BMP: 06/30/17 06:19 06/30/17 06:19 Lab Results: I have reviewed the past 24 hour labs
[2017-06-30] MEDS: MEGESTROL 400 MG/10 ML UDCUP PO SCH (08:14)
[2017-06-30] MEDS: TRIAMTERENE/HCTZ 75-50 MG TABLET PO SCH (08:14)
[2017-06-30] MEDS: NITROFURANTOIN MACROCRYSTALS 100 MG CAPSULE PO SCH ×2 (08:14→21:37)
[2017-06-30] MEDS: METOPROLOL TARTRATE 100 MG TABLET PO SCH ×2 (08:14→21:37)
[2017-06-30] MEDS: PANTOPRAZOLE 40 MG TABLET PO SCH (08:14)
--- NOTE | 2017-06-30 13:41 | XRay Report ---
XR chest 1V Indication: Elevated white blood cell counts. Comparison: Chest x-ray 06/26/2017. Technique: Portable AP chest was performed. Findings: Left-sided diaphragmatic hernia is demonstrated containing large bowel which is filled with enteric contrast. The lung parenchyma demonstrates little change in comparison. Stranding in the right infrahilar lung may reflect atelectasis or infection. Heart size is enlarged, stable. Previous sternotomy is demonstrated. Bones and soft tissues are stable. Impression: 1. Left-sided diaphragmatic hernia is suggested. Alternatively this could reflect phrenic nerve injury with elevation of the left hemidiaphragm. 2. Little overall change in the lung parenchyma. Infectious process and/or atelectatic changes right cardiophrenic angle could be considered. 06/30/2017 1:38 PM PROCEDURE INTERPRETED AT [facility] DEPARTMENT OF RADIOLOGY Final Report Signed by: Dr. Jose Knox
[2017-06-30] MEDS: LEVOFLOXACIN INJ 750 MG in PREMIX 1 EACH IV SCH (14:45)
--- NOTE | 2017-06-30 14:47 | XRay Report ---
XR chest 2V Date: 06/30/2017 1:49 PM History: Evaluate bowel seen on chest x-ray laterally Comparison: 06/30/2017 Technique: PA and lateral chest Findings: Stable cardiomegaly with prior median sternotomy. Progressive gaseous distention of the stomach. Barium-filled colon extending adjacent to the stomach in the left mid to lower lung zone location. Minimally decreased edema with residual left pleural effusion. Kyphotic deformity of the spine with chronic T11 compression fracture. Impression: Stable cardiomegaly with prior median sternotomy. Previously noted elevated left hemidiaphragm with progressive gaseous distention of the stomach and barium remaining in the colon which is displaced superiorly. Minimally improved CHF with persistent left pleural effusion. Osteopenia with chronic T11 compression fracture. PROCEDURE INTERPRETED AT [facility] DEPARTMENT OF RADIOLOGY Final Report Signed by: Dr. Minerva Cristina
--- NOTE | 2017-06-30 16:26 | Cardiology Progress Note ---
IGareth Lesley, NP, am scribing for, and in the presence of, Pancho Perdomo MD 16:26. Assessment and Plan - Time spent with patient Time spent with patient: Greater than 30 minutes (1) Pre-syncope Status: Acute Assessment and plan: SEE PLAN LISTED BELOW Current Visit: Yes (2) Arrhythmia Status: Acute Assessment and plan: SEE PLAN LISTED BELOW Current Visit: Yes (3) Atrial fibrillation Status: Resolved Assessment and plan: SEE PLAN LISTED BELOW Current Visit: Yes Qualifiers: Atrial fibrillation type: paroxysmal Qualified Code(s): I48.0 - Paroxysmal atrial fibrillation (4) Coronary artery disease Status: Chronic Assessment and plan: SEE PLAN LISTED BELOW Current Visit: Yes Qualifiers: Coronary Disease-Associated Artery/Lesion type: three affiliated artery [place] vs. transplanted heart: three affiliated heart Associated angina: without angina Qualified Code(s): I25.10 - Atherosclerotic heart disease of three affiliated coronary artery without angina pectoris (5) Nausea and vomiting Status: Chronic Assessment and plan: SEE PLAN LISTED BELOW Current Visit: Yes (6) Pelvic cyst Status: Chronic Assessment and plan: SEE PLAN LISTED BELOW Current Visit: Yes (7) Leukocytosis Status: Acute Assessment and plan: SEE PLAN LISTED BELOW Current Visit: Yes Cardiology - PN: Subj Interval history: CRUISE COUNSELOR: Dr. Cartagena SUMMARY: Ms. Loo is an 81 WF, admitted for syncope. The patient has had progressive generalized weakness with ongoing anorexia, nausea, and vomiting. The patient was noted to have "SVT" that "broke" with IV Cardizem in the ER. The patient did recognize she was having palpitations at that time. Significant cardiac history includes: coronary artery disease (status post coronary artery bypass grafting in the remote past at [facility] (1989, 2005)), atrial fibrillation, "SVT", hypertension. The last clinic visit with Dr. Cartagena that I can find was in June 2016. The last echocardiogram on record was August 2013 which demonstrated an ejection fraction of 60%. Dr. Barth has been consulted due to wide complex tachycardia. There is also a possible "pelvic mass" discovered on CT accidentally 1 year ago that was never worked up. She has had some ongoing nausea and anorexia, no diarrhea. Denies hematochezia emesis, coffee-ground emesis, melena, or bright red blood per rectum. She is not on anticoagulation. Patient is taking Levaquin after being diagnosed and treated for urosepsis on recent hospitalization. 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 The patient has been maintained on a Cardizem drip, will stop this and start oral metoprolol 100 mg twice daily. We may need to add amiodarone due to renal dysfunction and CAD. Sinus rhythm with occasional ventricular premature complexes rate controlled in the 90s, blood pressure in the normal range. Dr. Barth recommends an EP evaluation when GI workup pelvic mass workup is complete and prognosis is established. If this process is prolonged, LifeVest is recommended due to high risk for sudden cardiac with her presentation. Labs reviewed: WBC is 15,000, H&H 10 and 31; Electrolytes WNL; Creatinine 2.4. JUNE 29, 2017: The patient family has deferred GI workup, and wished to follow -up with Dr. Black at [place] upon discharge. We will consult DIRECTOR CORPORATE for workup of pelvic cyst that was found on CT scan approximately one year ago. Pelvic ultrasound reveals the patient is status post hysterectomy. There is an indeterminate 92 x 83 x 70 mm cystic masslike finding in the mid pelvis without septations. Finding is thought probably ovarian in nature because of the size. Dr. Barth would like to rule out infection prior to patient undergoing EP evaluation. Labs reveal a white count of 16,000, H&H 1031 which is stable. Electrolytes WNL. Creatinine 2.7, BUN 33. Patient has had sustained wide QRS tachycardia, remains asymptomatic. Plan for EP evaluation with possible ablation on Wednesday. June 30, 2017: Awaiting DIRECTOR CORPORATE consult for pelvic cyst. Overall, the patient describes not feeling well. She has remained afebrile with the persistent leukocytosis. She is on Levaquin and Macrodantin, as she was previously hospitalized reported urosepsis. Will consult ID for an opinion. The patient also has a very dramatic chest x-ray today with contrast in her colon, and her colon is in her left hemothorax. There appears to be a severe elevation of the left hemidiaphragm. I had a very long discussion with the patient and her son about getting this evaluated. They had a disagreement with Dr. Pond earlier in this hospital stay and I discussed the case with Dr. Calero today. I am going to get a second opinion from him. I am going to check a CT of the chest per his request to assist in evaluation of this abnormality. Our goal is to proceed with the EP study on Wednesday.. Labs reviewed, creatinine 3.0. Sodium 135, potassium 3.4, hemoglobin 9.7, hematocrit 29.7, WBC 16.2. Vital signs have remained stable. Family at bedside and discussed plan of care with the patient and her son. Impression and plan: 1. Presyncope-this appears to be somewhat related to the arrhythmia that she had on presentation, we are planning an EP study on Wednesday. 2. Arrhythmia-wide complex tachycardia, continue metoprolol 100 mg twice daily. Her rhythm has been stable since starting this. Consider oral amiodarone due to kidney function and CAD. If the patient is discharged, a LifeVest should be considered.. We discussed the case with Dr. Barth today who is planning an EP study and potential ablation on Wednesday. 3. Leukocytosis-significance of this is unknown continue Levaquin blood cultures and urine culture negative at 48 hours. Consult ID. She did apparently have a prolonged hospital stay with "urosepsis" at another facility prior to her admission here. 4. Renal insufficiency-duration is unknown, mid pelvic mass 92 X 83 X 70 mm; atrophic left kidney with small cysts. 5. Subacute ongoing nausea and anorexia. I am consulting Dr. Calero to assist in workup and management of this problem and her abnormal swallowing study and chest x-ray. 6. Generalized debility- We will need to get her evaluated for swing bed placement at the time of discharge. 7. History of coronary artery disease-I suspect that this pathology is somewhat stable based on her history, cardiac biomarkers negative. Exam (Progress Note) - Constitutional Vitals: Period Temp Pulse Resp BP Sys/Pate Pulse Ox Last 24 Hr 96.6 F-97.9 F 84-97 18-20 120-148/65-81 92-98 Exam: General: Appears well with no apparent distress. Pleasant and cooperative. Appears comfortable. HEENT: PERRL, normocephalic, atraumatic. Mucous membranes moist. No jaundice noted. Conjunctiva moist and clear, sclerae anicteric. Neck: No JVD/HJR, no thyromegaly or lymphadenopathy noted. No carotid bruit appreciated. Cardiac: Regular rate and rhythm. No murmur rub or gallop. PMI is nondisplaced. Lungs: Wheezing noted bilaterally without accessory muscle use to assist the respiratory pattern. No oxygen required Abdomen: Soft, bowel sounds normoactive. Nontender and nondistended. No abdominal bruit or thrill noted. No masses noted. Musculoskeletal: No fluid collection. Decreased range of motion is noted. Extremities: No clubbing, cyanosis noted. No edema noted. Upper extremity pulses 2+. Lower extremity pulses 2+. Capillary refill less than 3 seconds. Skin: No unusual lesions or rashes. No skin breakdown appreciated. Neuro: Awake, alert and oriented to self and place. Moves all extremities well without hemiparesis or paralysis. No essential tremor is appreciated. Result/EKG - Labs CBC & BMP: 06/30/17 06:19 06/30/17 06:19 Lab Results: I have reviewed the past 24 hour labs Labs: Laboratory Results - last 24 hr 06/30/17 06/30/17 06:19 06:19 WBC 16.2 H RBC 3.53 L Hgb 9.7 L Hct 29.7 L MCV 84.1 L MCH 28 MCHC 32.7 RDW 16.3 Plt Count 266 MPV 9.2 L Neut % (Auto) 75.1 H Lymph % (Auto) 8.5 L [place] % (Auto) 6.9 Eos % (Auto) 6.6 Baso % (Auto) 0.9 H Neut # (Auto) 12.1 H Lymph # (Auto) 1.4 [place] # (Auto) 1.1 H Eos # (Auto) 1.1 H Baso # (Auto) 0.1 Immature Gran % 2.0 Nucleated RBC % 0.0 Immature Gran # 0.33 Nucleated RBCs # 0.00 Immature Plt Fraction 0.0 Sodium 135 L Potassium 3.4 L Chloride 98 Carbon Dioxide 26 Anion Gap 14.4 BUN 34 H Creatinine 3.00 H GFR Calculation 12 BUN/Creatinine Ratio 11.00 Glucose 90 Calculated Osmolality 277.1 Calcium 8.6 Magnesium 2.3 - Diagnostic Findings Procedure: Chest x-ray: pending - EKG EKG results: interpreted by me, sinus rhythm ILeanne Michael, MD, personally performed the services described in this documentation, ascribed by Tracy Servin NP in my presence, and it is both accurate and complete 626 .
--- NOTE | 2017-06-30 17:53 | Event Note ---
Asked to see patient for persistent leukocytosis. She was gone for CT scan. Will check back on her tomorrow morning.
[2017-06-30] MEDS: ROSUVASTATIN 20 MG TABLET PO SCH (18:31)
[2017-06-30] MEDS: CLOPIDOGREL 75 MG TABLET PO SCH (18:31)
[2017-06-30] MEDS: ASPIRIN EC 81 MG TABLET PO SCH (18:31)
[2017-06-30] MEDS: DULoxetine 30 MG CAPSULE PO SCH (18:31)
[2017-06-30] MEDS: PROMETHAZINE 25 MG TABLET PO SCH (18:31)
--- NOTE | 2017-06-30 19:03 | CT Report ---
CT chest abdomen pelvis wo con Indication: Questionable pelvic mass. Abnormal chest x-ray. Comparison: Chest x-ray 06/30/2017. Technique: CT of the chest, abdomen, and pelvis was performed without the administration of intravenous contrast. The CT examination was performed using one or more of the following dose reduction techniques: Automatic exposure control, adjustment of the mA and kV according to patient size, use of acute or iterative reconstruction techniques. Findings: The study is degraded by the amount of barium present within large bowel which results in significant streak artifact in diminution of architectural detail in the region of the large bowel. Additionally, no intravenous contrast was administered further degrading anatomic detail and delineation of anatomic structures. Within the chest, as demonstrated on recent chest x-ray, the left hemidiaphragm is elevated with contrast-filled large bowel underlying the hemidiaphragm. Atelectatic lung is present. Differential considerations for this appearance include diaphragmatic hernia as well as phrenic nerve injury. Sagittal series suggests hemidiaphragm to be intact, however this is difficult to completely confirm secondary to the mild streak artifact arising from barium within the large bowel. Lungs demonstrate groundglass attenuation bilaterally some areas of thickened interlobular septal lines. Additionally within the left lower lobe compressive atelectasis is noted within the posterior sulcus. Small left-sided pleural effusion additionally is present. Diffuse intimal calcification of the aorta is present. 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 Heart size is enlarged. Heart may be minimally displaced to the left as a result of mass effect from the elevation of the left hemidiaphragm. Extensive coronary artery calcifications are noted. Previous sternotomy is demonstrated. Osseous structures of the chest demonstrate compression deformity involving T11 which is moderate without evidence of severe central stenosis. Bony structures of the chest otherwise demonstrate no significant abnormality. Soft tissues and musculature of the chest wall are unremarkable. A small moderate hiatal hernia is noted within the lower chest. Motion blurs abdomen. Additionally significant streak artifact arises from large bowel. The gallbladder is surgically absent. The liver is blurred by motion. There is no gross evidence of large hepatic mass. Punctate calcifications present within the spleen compatible with prior granulomatous disease. The pancreas demonstrates some evidence of calcification and possibly hypoattenuating lesion pancreatic tail. This is not clearly delineated. The adrenal glands are grossly unremarkable. The left kidney is small in size and demonstrates diffuse renal cortical atrophy. The right kidney is severely blurred by motion. The aorta demonstrates diffuse intimal calcification. Large bowel demonstrates a large amount of contrast. There is a large cystic lesion possibly within the left adnexa that has mass effect on the urinary bladder. This cannot be further commented upon secondary to the degree of streak artifact arising from the barium filled large bowel. Small bowel large bowel otherwise grossly unremarkable. Osseous structures of the lumbar spine and pelvis demonstrate no specific evidence of acute pathology. Soft tissues and muscular tear of the body wall demonstrate no acute findings. Previous repair of the right hip is present. Impression: 1. Significant technical limitations exist with this study has resolved barium within large bowel as well as motion and lack of intravenous contrast. The appearance of the left chest as differential considerations including diaphragmatic hernia as well as phrenic nerve injury. 2. Atelectatic changes are present within the left lower lobe. A small left-sided pleural effusion visualized present. 3. Moderately dense coronary artery calcifications are present. 4. 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 5. Mild interstitial pulmonary edema is not excluded. 6. Small hiatal hernia is present. 7. Cystic mass is suggested within the left adnexa. Further evaluation is not possible secondary to the technical limitations stated above. Repeat study once barium has cleared following administration of intravenous contrast is recommended. 06/30/2017 6:53 PM PROCEDURE INTERPRETED AT [facility] DEPARTMENT OF RADIOLOGY Final Report Signed by: Dr. Jose Knox
[2017-06-30] MEDS: ZALEPLON 5 MG CAPSULE PO SCH (21:37)
[2017-06-30] MEDS: ENOXAPARIN 30 MG/0.3 ML SYRINGE SUBCUT SCH (21:38)
[2017-07-01] MEDS: LEVOTHYROXINE 75 MCG TABLET PO SCH (06:14)
--- NOTE | 2017-07-01 07:01 | Event Note ---
I was asked to see this patient who is an 81-year-old white female who underwent previous cardiac surgery around 1991 and experienced a complication which resulted in resection of a segment of her left lung. As a result of this her left hemidiaphragm has elevated and the patient has experienced herniation of bowel both large and small into this area as well as a probable paraesophageal hernia of a segment of her stomach resulting in the changes seen on her upper GI series with small bowel follow-through and her CT scan done yesterday. Please see Dr. Ansari's initial consultation on this patient as well as Dr. Zelalem Pond' follow-up notes concerning her care. The main caregiver, the patient's son had a disagreement with Dr. Pond/personality conflict and hence I was asked to render an additional opinion as to what could be done to help the patient. Of course shinto of the natural anatomy would be ideal but present significant risk to the patient at her age with her comorbidities and is likely unacceptable at this point since this problem is been going on since 1991 albeit progressively over the last several months to years. This would also require "filling the vacuum" above the left hemidiaphragm in order to displace the bowel back into the abdominal cavity, and I am not sure how this would be done in 2017. In years past with lobectomies done for TB this was accomplished using ping-pong balls. One potential partial solution might be to inflate the stomach below the level of the diaphragm and "spot weld"/ anchor it in place using a PEG feeding tube. This will be used not for purposes of feeding but just simply to anchor the stomach in an anatomically favorable spot to decrease its migration up into the thoracic cavity. Of course , the area that it now occupies in the thoracic cavity would be left with a greater vacuum that further bowel and omentum might migrate into-- causing other problems. In other words this may help but also may produce further problems down the road that I cannot anticipate. I have presented these choices to the patient's family (Ladonna, the daughter at the bedside), she does not seem to be inclined to a full-blown cardiothoracic repair, but will discuss the PEG tube option with the patient's brothers who will help her decide if they want to pursue this option. I can state that the small bowel follow- through seems to show the stomach does empty liquids appropriately, and barium is able to traverse the small bowel in a normal time reaching the colon at 1 hour and 30 minutes (normal ~ 2 hours 30 minutes). If they want to opt for the PEG tube/anchor option, all anticoagulation will need to be discontinued in order to pursue this. The PEG tube absolutely has to stay in for 1 month so that a mature tract and develop prior to being removed in the office. I will discuss these options further with the family tomorrow.
[2017-07-01] MEDS ORDERED: POTASSIUM CHLORIDE 20 MEQ TABLET PO PRN (07:48)
--- NOTE | 2017-07-01 07:59 | Electrophysiology Progress Not ---
Assessment and Plan (1) Wide-complex tachycardia Status: Acute Assessment and plan: 81-year-old female, presenting with syncope, wide QRS tachycardia. She converted back to sinus rhythm, are getting IV Cardizem. On the monitor, she had recurrent runs of narrow and wQRS tachycardia, sometimes with warm up, which would be more suggestive of 80/SVT, with rate related aberrancy. However , some tracing showed white crest tachycardia, with beats suggestive of capture beats, suggesting VT. although, on prior prior EKGs, she has evidence of PVCs with VA conduction, raising the suspicion for AVRT/AVNRT. The arrhythmia was hemodynamically significant and led to syncope, is recurrent. Although there is history of atrial fibrillation, I did not see these documented with an EKG in her medical records. 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 The arrhythmia and clinical course so far suggestive of SVT/aberrancy, although , some tracings on the telemetry raise the suspicion of double tachycardia. Comorbidities, hypotension limit antiarrhythmic options. She still has recurrent, fast regular, wide QRS arrhythmia on telemetry. -We discussed risks and benefits of management options for her arrhythmia. Her comorbidities limit options with medical management. Her frequently recurrent arrhythmia will need to be addressed, as it led to syncope and if GI or surgical intervention is planned for her chronic issues. She is high risk for periprocedural complications. If VT is diagnosed, she would not be a candidate for ICD at this time, until ongoing infection is ruled out. -We will plan to proceed with EP study/ablation tomorrow, plan around noontime. Keep n.p.o. after midnight. Current Visit: Yes (2) Arrhythmia Status: Acute Current Visit: Yes (3) Chronic renal insufficiency, stage III (moderate) Status: Acute Current Visit: Yes (4) History of pelvic mass Status: Acute Current Visit: Yes (5) Leukocytosis Status: Acute Current Visit: Yes (6) Nausea and vomiting Status: Chronic Current Visit: Yes (7) UTI (urinary tract infection) Status: Acute Current Visit: Yes (8) Atrial fibrillation Status: Resolved Current Visit: Yes Qualifiers: Atrial fibrillation type: paroxysmal Qualified Code(s): I48.0 - Paroxysmal atrial fibrillation Electrophysiology Subjective Interval history: She had a run of fast, regular wide QRS tachycardia, similar to her prior events overnight. She is still feeling generally unwell, unable to ambulate due to weakness. GI and ID input noted. WBC still elevated, she is afebrile. Blood pressure stable. Exam - Constitutional Vitals: Period Temp Pulse Resp BP Sys/Pate Pulse Ox Last 24 Hr 96.9 F-98.0 F 89-99 16-20 115-136/64-71 91-96 General appearance: normal weight, no acute distress - Head Head exam: Present: normal inspection. Absent: normocephalic - Eye Eye exam: Absent: conjunctival injection, scleral icterus Pupils: Absent: dilated - ENT ENT exam: Present: normal external ear exam - Neck Neck exam: Present: normal inspection - Respiratory Respiratory exam: Present: decreased breath sounds. Absent: chest wall tenderness - Cardiovascular Cardiovascular exam: Present: regular rate and rhythm. Absent: JVD, systolic murmur - GI/Abdominal GI/Abdominal exam: Present: normal bowel sounds. Absent: distended - Extremities Exam Extremities exam: Present: normal inspection, normal capillary refill, edema (1+ ) - Back Exam Back exam: Present: normal inspection - Neurological Exam Neurological exam: Present: alert, oriented X3 - Psychiatric Psychiatric exam: Present: normal affect, normal mood - Skin Skin exam: Present: normal color, warm. Absent: cyanosis Results - Labs CBC & BMP: 06/30/17 06:19 06/30/17 06:19 Lab Results: I have reviewed the past 24 hour labs
[2017-07-01] MEDS: NITROFURANTOIN MACROCRYSTALS 100 MG CAPSULE PO SCH ×2 (08:20→21:13)
[2017-07-01] MEDS: METOPROLOL TARTRATE 100 MG TABLET PO SCH ×2 (08:20→21:14)
[2017-07-01] MEDS: TRIAMTERENE/HCTZ 75-50 MG TABLET PO SCH (08:21)
[2017-07-01] MEDS: MEGESTROL 400 MG/10 ML UDCUP PO SCH (08:21)
[2017-07-01] MEDS: PANTOPRAZOLE 40 MG TABLET PO SCH (08:21)
[2017-07-01 10:40] LABS: Basophils # 0.1 10*3/uL (0.0-0.2); Basophils % 0.7 % (0.0-0.8); Eosinophils # 0.6 10*3/uL (0.0-0.87); Hematocrit 30.2 VOL% (35.7-47.0); Immature Granulocytes % 2.7 %; Immature Granulocytes Absolute 0.42 #; Lymphocytes # 1.1 10*3/uL (1.4-4.0); Lymphocytes % 7.3 % (21.3-54.2); Mean Corpuscular HGB Conc 33.1 GM/DL (32-36); Mean Corpuscular Hemoglobin 28 PG (27-34); Mean Corpuscular Volume 83.7 FL (87-102); Mean Platelet Volume 9.1 FL (9.6-12.0); Monocytes # 1.3 10*3/uL (0.11-0.8); Monocytes % 8.6 % (1.7-12.7); Neutrophils % 76.7 % (38.7-73.9); Platelet Count 286 T/CUMM (130-400); Red Blood Count 3.61 MC/CUMM (3.8-5.5); Red Cell Distribution Width 16.2 % (9.3-17.3); White Blood Count 15.6 T/CUMM (4-12)
[2017-07-01 11:17] LABS: Calcium 8.8 MG/DL (8.5-10.1); Magnesium 2.4 MG/DL (1.8-2.4); Osmolality,Calculated 277.4 MOS/KG (273-304); Potassium 3.8 MMOL/L (3.5-5.1)
--- NOTE | 2017-07-01 16:13 | Infectious Disease Consult ---
Assessment and Plan (1) Chronic renal insufficiency, stage III (moderate) Status: Acute Current Visit: Yes (2) Coronary artery disease Status: Chronic Current Visit: Yes Qualifiers: Coronary Disease-Associated Artery/Lesion type: [place] artery [place] vs. transplanted heart: [place] heart Associated angina: without angina Qualified Code(s): I25.10 - Atherosclerotic heart disease of [place] coronary artery without angina pectoris (3) Debility Status: Chronic Current Visit: Yes (4) Atrial fibrillation Status: Resolved Current Visit: Yes Qualifiers: Atrial fibrillation type: paroxysmal Qualified Code(s): I48.0 - Paroxysmal atrial fibrillation (5) Leukocytosis Status: Acute Assessment and plan: There's been mild improvement in the leukocytosis since admission with it being stable over the past few days. In reviewing everything I do not see an obvious focus of infection. Patient has no pneumonia clinically, no UTI as evidenced by negative urine culture. Blood cultures also negative. Reassuring is the fact that there is no fever and I think the leukocytosis may just be a stress response. Recommendations: I would just monitor the white blood cell count intermittently and as long as there is no fever, and the patient does not develop specific focus of infection, I would not investigate further. Thank you very much for the consult. Call again as needed. Discussed with Dr. Perdomo Discussed with patient's daughter at bedside Current Visit: Yes History of Present Illness Chief complaint: Persistent leukocytosis History of present illness: History obtained mainly from patient's daughter somewhat from the patient but also from review of her records. Ms. 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 She presented to hospital week ago after a syncopal episode. She been in and out of hospital for only 1 week prior for UTI treated with IV antibiotics in the hospital for about 5 days. When the patient was admitted here she was noted to have leukocytosis to 19. She was put on levofloxacin and has also been on nitrofurantoin. The leukocytosis is only mildly improved to 16. She has not had any fever throughout the admission but she has been quite sickly, malaised, quite dyspneic. She was noted to have significant elevation of left hemidiaphragm with herniation of bowels into left chest. No cough but today she feels as if she may be wheezing. She is quite anorexic but no nausea vomiting or diarrhea in the hospital. She says she did have few episodes of vomiting prior to admission. No recurrence of irritative urinary symptoms since treatment of her UTI a couple weeks ago. I am asked to see for possible infectious cause of the leukocytosis. Home Medications Medication Instructions Recorded Confirmed Type Aspirin EC Tab 81 mg PO QPM 06/26/17 06/26/17 History Clopidogrel [Plavix] 75 mg PO QPM 06/26/17 06/26/17 History Duloxetine HCl [Duloxetine] 60 mg PO QPM 06/26/17 06/26/17 History Esomeprazole Magnesium 40 mg PO BID 06/26/17 06/26/17 History [Esomeprazole] Levofloxacin Tab [Levaquin Tab] 500 mg PO Q48H 06/26/17 06/26/17 History Levothyroxine Tab [Synthroid Tab] 75 mcg PO DAILY@0700 06/26/17 06/26/17 History Megestrol Liquid [Megace Liquid] 400 mg PO QAM 06/26/17 06/26/17 History Metoprolol Tartrate 25 mg PO BID 06/26/17 06/26/17 History Nitrofurantoin Macrocrystal 100 mg PO BID 06/26/17 06/26/17 History [Nitrofurantoin] Promethazine HCl 25 mg PO QPM 06/26/17 06/26/17 History Rosuvastatin Calcium [Crestor] 40 mg PO QPM 06/26/17 06/26/17 History Triamterene/Hctz 75-50 Tab 1 tablet PO QAM 06/26/17 06/26/17 History [Maxzide 75-50] Zolpidem Tartrate 10 mg PO BEDTIME 06/26/17 06/26/17 History amLODIPine [Norvasc] 5 mg PO QAM 06/26/17 06/26/17 History Allergies Allergy/AdvReac Type Severity Reaction Status Date / Time Sulfa (Sulfonamide Allergy Unknown/Unable Verified 06/26/17 14:07 Antibiotics) to obtain mycin Allergy Unknown/Unable Uncoded 06/26/17 14:07 to obtain 12 point system: reviewed and no additional remarkable complaints except as stated (Per HPI) Medical,Surgical,& Family Hx - Medical History Cardio: History of: Cardiac Dysrhythmia, CAD, Hypertension Neurology: History of: TIA No history of: Seizures Respiratory: History of: Respiratory Problems (only has the left lung) - Surgical History Cardiac Surgeries: Sugical HX of: Cardiac Surgery (2 triple bypass) - Social History Smoking Status: Never smoker Frequency of Alcohol Use: None Type of Drug Use: None Infectious Disease Exam H&P - Constitutional Vitals: Vital Signs Temp Pulse Resp BP Pulse Ox 97.2 F L 87 20 143/77 96 07/01/17 11:54 07/01/17 11:54 07/01/17 11:54 07/01/17 11:54 07/01/17 11:54 Intake and Output 07/01/17 07/01/17 07/01/17 07:59 15:59 23:59 Intake Total 60 / 60 240 / 240 Output Total 260 / 260 Balance -200 / -200 240 / 240 Intake: Oral 60 / 60 240 / 240 Output: Urine 260 / 260 Other: Voiding Method Bedside Commode # Voids 1 # Bowel Movements 1 Weight 54.885 kg Patient Weight 07/01/17 23:59 Weight 54.885 kg Exam: General: Patient chronically ill looking, very frail HEENT: Mucous membranes pale and moist, anicteric acyanotic, LISA, no oropharyngeal exudates Neck: Supple, no thyroid gland enlargement, no lymphadenopathy Respiratory system: Breath sounds vesicular but decreased on left, no crepitations but occasional wheezes in right lung base Cardiovascular: Normal S1 and S2, no murmurs appreciated Abdomen: Normal bowel sounds, soft nontender throughout, no organomegaly or mass appreciated Genitourinary: No suprapubic pain or bladder distention Extremities: no edema Skin: No rash Reports - Labs CBC & BMP: 07/01/17 10:23 07/01/17 10:23 Labs: Laboratory Results - last 24 hr 07/01/17 07/01/17 10:23 10:23 WBC 15.6 H RBC 3.61 L Hgb 10.0 L Hct 30.2 L MCV 83.7 L MCH 28 MCHC 33.1 RDW 16.2 Plt Count 286 MPV 9.1 L Neut % (Auto) 76.7 H Lymph % (Auto) 7.3 L [place] % (Auto) 8.6 Eos % (Auto) 4.0 Baso % (Auto) 0.7 Neut # (Auto) 12.0 H Lymph # (Auto) 1.1 L [place] # (Auto) 1.3 H Eos # (Auto) 0.6 Baso # (Auto) 0.1 Immature Gran % 2.7 Nucleated RBC % 0.0 Immature Gran # 0.42 Nucleated RBCs # 0.00 Immature Plt Fraction 0.0 Sodium 133 L Potassium 3.8 Chloride 93 L Carbon Dioxide 31 Anion Gap 12.8 BUN 44 H Creatinine 3.20 H GFR Calculation 11 BUN/Creatinine Ratio 13.00 Glucose 121 H Calculated Osmolality 277.4 Calcium 8.8 Magnesium 2.4 - Reports Microbiology: Microbiology 06/26/17 14:19 Blood Culture - Final Blood No growth at 5 days 06/26/17 14:19 Blood Culture - Final Blood No growth at 5 days Urine culture from admission also negative - Diagnostic Findings Procedure: Chest x-ray: image reviewed by me, report reviewed by me (No consolidation appreciated but she does have significant elevation of left hemidiaphragm)
[2017-07-01] MEDS: SODIUM CHLORIDE 0.9% 1,000 ML IV SCH (16:55)
--- NOTE | 2017-07-01 17:22 | Cardiology Progress Note ---
IGareth Lesley, NP, am scribing for, and in the presence of, Pancho Perdomo MD 17:22. Assessment and Plan - Time spent with patient Time spent with patient: Greater than 30 minutes (Record review, assessment, and documentation) (1) Pre-syncope Status: Acute Assessment and plan: SEE PLAN LISTED BELOW Current Visit: Yes (2) Arrhythmia Status: Acute Assessment and plan: SEE PLAN LISTED BELOW Current Visit: Yes (3) Atrial fibrillation Status: Resolved Assessment and plan: SEE PLAN LISTED BELOW Current Visit: Yes Qualifiers: Atrial fibrillation type: paroxysmal Qualified Code(s): I48.0 - Paroxysmal atrial fibrillation (4) Coronary artery disease Status: Chronic Assessment and plan: SEE PLAN LISTED BELOW Current Visit: Yes Qualifiers: Coronary Disease-Associated Artery/Lesion type: [place] artery [place] vs. transplanted heart: [place] heart Associated angina: without angina Qualified Code(s): I25.10 - Atherosclerotic heart disease of [place] coronary artery without angina pectoris (5) Nausea and vomiting Status: Chronic Assessment and plan: SEE PLAN LISTED BELOW Current Visit: Yes (6) Pelvic cyst Status: Chronic Assessment and plan: SEE PLAN LISTED BELOW Current Visit: Yes (7) Leukocytosis Status: Acute Assessment and plan: SEE PLAN LISTED BELOW Current Visit: Yes Cardiology - PN: Subj Interval history: SLOT OPERATIONS MANAGER: Dr. Cartagena SUMMARY: Ms. Loo is an 81 WF, admitted for syncope. The patient has had progressive generalized weakness with ongoing anorexia, nausea, and vomiting. The patient was noted to have "SVT" that "broke" with IV Cardizem in the ER. The patient did recognize she was having palpitations at that time. Significant cardiac history includes: coronary artery disease (status post coronary artery bypass grafting in the remote past at [facility] (1989, 2005)), atrial fibrillation, "SVT", hypertension. The last clinic visit with Dr. Cartagena that I can find was in June 2016. The last echocardiogram on record was August 2013 which demonstrated an ejection fraction of 60%. Dr. Barth has been consulted due to wide complex tachycardia. There is also a possible "pelvic mass" discovered on CT accidentally 1 year ago that was never worked up. She has had some ongoing nausea and anorexia, no diarrhea. Denies hematochezia emesis, coffee-ground emesis, melena, or bright red blood per rectum. She is not on anticoagulation. Patient is taking Levaquin after being diagnosed and treated for urosepsis on recent hospitalization. 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 The patient has been maintained on a Cardizem drip, will stop this and start oral metoprolol 100 mg twice daily. We may need to add amiodarone due to renal dysfunction and CAD. Sinus rhythm with occasional ventricular premature complexes rate controlled in the 90s, blood pressure in the normal range. Dr. Barth recommends an EP evaluation when GI workup pelvic mass workup is complete and prognosis is established. If this process is prolonged, LifeVest is recommended due to high risk for sudden cardiac with her presentation. Labs reviewed: WBC is 15,000, H&H 10 and 31; Electrolytes WNL; Creatinine 2.4. JUNE 29, 2017: The patient family has deferred GI workup, and wished to follow -up with Dr. Black at [facility] upon discharge. We will consult DECORATING AND ASSEMBLY SUPERVISOR for workup of pelvic cyst that was found on CT scan approximately one year ago. Pelvic ultrasound reveals the patient is status post hysterectomy. There is an indeterminate 92 x 83 x 70 mm cystic masslike finding in the mid pelvis without septations. Finding is thought probably ovarian in nature because of the size. Dr. Barth would like to rule out infection prior to patient undergoing EP evaluation. Labs reveal a white count of 16,000, H&H 1031 which is stable. Electrolytes WNL. Creatinine 2.7, BUN 33. Patient has had sustained wide QRS tachycardia, remains asymptomatic. Plan for EP evaluation with possible ablation on Wednesday. June 30, 2017: Awaiting DECORATING AND ASSEMBLY SUPERVISOR consult for pelvic cyst. Overall, the patient describes not feeling well. She has remained afebrile with the persistent leukocytosis. She is on Levaquin and Macrodantin, as she was previously hospitalized reported urosepsis. Will consult ID for an opinion. The patient also has a very dramatic chest x-ray today with contrast in her colon, and her colon is in her left hemothorax. There appears to be a severe elevation of the left hemidiaphragm. I had a very long discussion with the patient and her son about getting this evaluated. They had a disagreement with Dr. Pond earlier in this hospital stay and I discussed the case with Dr. Calero today. I am going to get a second opinion from him. I am going to check a CT of the chest per his request to assist in evaluation of this abnormality. Our goal is to proceed with the EP study on Wednesday.. Labs reviewed, creatinine 3.0. Sodium 135, potassium 3.4, hemoglobin 9.7, hematocrit 29.7, WBC 16.2. Vital signs have remained stable. Family at bedside and discussed plan of care with the patient and her son. JULY 01, 2017: The patient did well overnight. CT of the chest, abdomen, and pelvis showed a cystic mass within the left adnexa. Evaluation was not possible due to barium within the large bowel, mid interstitial pulmonary edema noted, small sided left pleural effusion, and left hemidiaphragm is elevated with contrast-filled large bowel underlying the hemidiaphragm. We have consulted infectious disease for persistent leukocytosis of unestablished etiology. Gastroenterology has seen the patient for evaluation of numerous GI issues, including nutrition. I appreciate their assistance. Awaiting DECORATING AND ASSEMBLY SUPERVISOR consult for evaluation of pelvic mass. Vital signs have remained stable, pulse rate in the 90s. After labs reviewed today, plan to consult nephrology for slowly rising creatinine. It is up to 3.2 today, with the hyponatremia, sodium 133, BUN 44. Will plan to gently rehydrate the patient with IV fluids, as she is eating and drinking very little. And would appreciate nephrology's assistance. Plan for EP study with Dr. Barth tomorrow around noon, will hold the patient n.p.o. after midnight. Impression and plan: 1. Presyncope-this appears to be somewhat related to the arrhythmia that she had on presentation, we are planning an EP study on Wednesday. 2. Arrhythmia-wide complex tachycardia, continue metoprolol 100 mg twice daily. Her rhythm has been stable since starting this. Consider oral amiodarone due to kidney function and CAD. If the patient is discharged, a LifeVest should be considered.. We discussed the case with Dr. Barth today who is planning an EP study and potential ablation on Wednesday. 3. Leukocytosis-significance of this is unknown, continue Levaquin blood cultures and urine culture negative at 48 hours. Consult ID. I discussed the case with Dr. Guzman Wang today. She does not see any obvious source of ongoing infection and she suspects the white count is simply stress response. 4. Renal insufficiency-duration is unknown but this seems to be gradually worsening and she has developed mild hyponatremia as well, mid pelvic mass 92 X 83 X 70 mm; atrophic left kidney with small cysts. 5. Subacute ongoing nausea and anorexia. I am consulting Dr. Calero to assist in workup and management of this problem and her abnormal swallowing study and chest x-ray. 6. Generalized debility- We will need to get her evaluated for swing bed placement at the time of discharge. 7. History of coronary artery disease-I suspect that this pathology is somewhat stable based on her history, cardiac biomarkers negative. Exam (Progress Note) - Constitutional Vitals: Period Temp Pulse Resp BP Sys/Pate Pulse Ox Last 24 Hr 96.9 F-98.0 F 87-99 16-20 115-143/64-80 91-96 Exam: General: Appears well with no apparent distress. Pleasant and cooperative. Appears comfortable. HEENT: PERRL, normocephalic, atraumatic. Mucous membranes moist. No jaundice noted. Conjunctiva moist and clear, sclerae anicteric. Neck: No JVD/HJR, no thyromegaly or lymphadenopathy noted. No carotid bruit appreciated. Cardiac: Regular rate and rhythm. No murmur rub or gallop. PMI is nondisplaced. Lungs: Essentially clear bilaterally without accessory muscle use to assist the respiratory pattern. No oxygen required Abdomen: Soft, bowel sounds normoactive. Nontender and nondistended. No abdominal bruit or thrill noted. No masses noted. Musculoskeletal: No fluid collection. Decreased range of motion is noted. Extremities: No clubbing, cyanosis noted. No edema noted. Upper extremity pulses 2+. Lower extremity pulses 2+. Capillary refill less than 3 seconds. Skin: No unusual lesions or rashes. No skin breakdown appreciated. Neuro: Awake, alert and oriented to self and place. Moves all extremities well without hemiparesis or paralysis. No essential tremor is appreciated. Result/EKG - Labs CBC & BMP: 07/01/17 10:23 07/01/17 10:23 Lab Results: I have reviewed the past 24 hour labs Labs: Laboratory Results - last 24 hr 07/01/17 07/01/17 10:23 10:23 WBC 15.6 H RBC 3.61 L Hgb 10.0 L Hct 30.2 L MCV 83.7 L MCH 28 MCHC 33.1 RDW 16.2 Plt Count 286 MPV 9.1 L Neut % (Auto) 76.7 H Lymph % (Auto) 7.3 L [place] % (Auto) 8.6 Eos % (Auto) 4.0 Baso % (Auto) 0.7 Neut # (Auto) 12.0 H Lymph # (Auto) 1.1 L [place] # (Auto) 1.3 H Eos # (Auto) 0.6 Baso # (Auto) 0.1 Immature Gran % 2.7 Nucleated RBC % 0.0 Immature Gran # 0.42 Nucleated RBCs # 0.00 Immature Plt Fraction 0.0 Sodium 133 L Potassium 3.8 Chloride 93 L Carbon Dioxide 31 Anion Gap 12.8 BUN 44 H Creatinine 3.20 H GFR Calculation 11 BUN/Creatinine Ratio 13.00 Glucose 121 H Calculated Osmolality 277.4 Calcium 8.8 Magnesium 2.4 - Diagnostic Findings Procedure: Chest x-ray: report reviewed by me, CT Abdomen and Pelvis: report reviewed by me, CT - chest: report reviewed by me - EKG EKG results: interpreted by me, sinus rhythm I, Pancho Perdomo MD, personally performed the services described in this documentation, ascribed by Tracy Servin NP in my presence, and it is both accurate and complete [id number] .
--- NOTE | 2017-07-01 17:43 | Nephrology Consult Note ---
History of Present Illness Chief complaint: Acute on chronic kidney disease History of present illness: Ms. Loo is a 81 year old female with a history of atrial fibrillation was admitted for syncope and SVT who is had further workup over the last several days to include a CT scan that showed evidence of a pelvic cyst atrophic kidneys were noted as well. Nephrology is been consulted for acute on chronic kidney disease. Patient serum creatinine is trended from 2.5 up to 3.2 today. There have been no hypotensive episodes however patient has a history of urinary tract infection as well as urosepsis. Approximately 12 days ago patient was admitted for urinary tract infection from a local hospital system. She has had decreased appetite. Moreover, patient has been weak as well. She denies NSAID medications. She denies chest pain occasional shortness of breath. Home Medications Medication Instructions Recorded Confirmed Type Aspirin EC Tab 81 mg PO QPM 06/26/17 06/26/17 History Clopidogrel [Plavix] 75 mg PO QPM 06/26/17 06/26/17 History Duloxetine HCl [Duloxetine] 60 mg PO QPM 06/26/17 06/26/17 History Esomeprazole Magnesium 40 mg PO BID 06/26/17 06/26/17 History [Esomeprazole] Levofloxacin Tab [Levaquin Tab] 500 mg PO Q48H 06/26/17 06/26/17 History Levothyroxine Tab [Synthroid Tab] 75 mcg PO DAILY@0700 06/26/17 06/26/17 History Megestrol Liquid [Megace Liquid] 400 mg PO QAM 06/26/17 06/26/17 History Metoprolol Tartrate 25 mg PO BID 06/26/17 06/26/17 History Nitrofurantoin Macrocrystal 100 mg PO BID 06/26/17 06/26/17 History [Nitrofurantoin] Promethazine HCl 25 mg PO QPM 06/26/17 06/26/17 History Rosuvastatin Calcium [Crestor] 40 mg PO QPM 06/26/17 06/26/17 History Triamterene/Hctz 75-50 Tab 1 tablet PO QAM 06/26/17 06/26/17 History [Maxzide 75-50] Zolpidem Tartrate 10 mg PO BEDTIME 06/26/17 06/26/17 History amLODIPine [Norvasc] 5 mg PO QAM 06/26/17 06/26/17 History Allergies Allergy/AdvReac Type Severity Reaction Status Date / Time Sulfa (Sulfonamide Allergy Unknown/Unable Verified 06/26/17 14:07 Antibiotics) to obtain mycin Allergy Unknown/Unable Uncoded 06/26/17 14:07 to obtain Medical,Surgical,& Family Hx - Medical History Cardio: History of: Cardiac Dysrhythmia, CAD, Hypertension Neurology: History of: TIA No history of: Seizures Respiratory: History of: Respiratory Problems (only has the left lung) - Surgical History Cardiac Surgeries: Sugical HX of: Cardiac Surgery (2 triple bypass) - Social History Smoking Status: Never smoker Frequency of Alcohol Use: None Type of Drug Use: None Review of Systems Constitutional: fatigue, lethargy Cardiovascular: dyspnea, dyspnea on exertion, no chest pain at rest Respiratory: dyspnea Genitourinary: dysuria Exam - Vital Signs Vital signs: Period Temp Pulse Resp BP Sys/Pate Pulse Ox Last 24 Hr 96.2 F-98.0 F 87-99 16-20 115-143/67-94 91-96 - General Appearance General appearance: well-developed, fatigue, frail EENT: ATNC Neck: supple Respiratory: clear Cardiology: rapid rhythm, irregular rhythm Gastrointestinal: normoactive bowel sounds Musculoskeletal: no clubbing Psychiatric: mood/affect appropriate, cooperative Results - Labs CBC & BMP: 07/01/17 10:23 07/01/17 10:23 Assessment and Plan (1) Pre-syncope Status: Resolved Current Visit: Yes (2) Atrial fibrillation Status: Resolved Current Visit: Yes Qualifiers: Atrial fibrillation type: paroxysmal Qualified Code(s): I48.0 - Paroxysmal atrial fibrillation (3) Coronary artery disease Status: Chronic Current Visit: Yes Qualifiers: Coronary Disease-Associated Artery/Lesion type: [place] artery [place] vs. transplanted heart: [place] heart Associated angina: without angina Qualified Code(s): I25.10 - Atherosclerotic heart disease of [place] coronary artery without angina pectoris (4) Leukocytosis Status: Acute Current Visit: Yes (5) Debility Status: Chronic Current Visit: Yes (6) Nausea and vomiting Status: Chronic Current Visit: Yes (7) UTI (urinary tract infection) Status: Acute Current Visit: Yes (8) Chronic renal insufficiency, stage III (moderate) Status: Chronic Assessment and plan: Patient with acute on chronic kidney disease. Will get a renal ultrasound. Avoid nephrotoxic agents. Daily BMP. Agree with IV fluids. Current Visit: Yes (9) Pelvic cyst Status: Chronic Current Visit: Yes
[2017-07-01] MEDS: CLOPIDOGREL 75 MG TABLET PO SCH (18:22)
[2017-07-01] MEDS: ROSUVASTATIN 20 MG TABLET PO SCH (18:22)
[2017-07-01] MEDS: PROMETHAZINE 25 MG TABLET PO SCH (18:22)
[2017-07-01] MEDS: DULoxetine 30 MG CAPSULE PO SCH (18:22)
[2017-07-01] MEDS: ASPIRIN EC 81 MG TABLET PO SCH (18:22)
--- NOTE | 2017-07-01 19:00 | OB/GYN History & Physical ---
History of Present Illness Chief complaint: Admitted with syncope History of present illness: Ms. Loo is a 81 year old female 81-year-old female with multiple medical problems admitted with syncope, also history of chronic renal disease. Patient has CT scan of the abdomen that demonstrated an incidental finding of a questionable pelvic cysts. Patient is status post hysterectomy and bilateral salpingo-oophorectomy. The CT scan never gave dimensions of the cyst. Ultrasound the pelvis was performed on this patient in the later part of June. Demonstrated at that time a large possibly 9 cm clear cystic structure. There was no septations noted. Also we will draw a CA 125, and a CEA, CA 19-9. Patient is a very feeble female with multiple medical problems. These lab tests are only to try to confirm whether or not this is benign or malignant abnormality. Because of this patient's frail nature, these tests were only to be diagnostic and not therapeutic. Do not feel that this patient is a surgical candidate. However because of the structural nature of the cyst the likelihood of this being benign is high on our list. Will await for the final results and then determine any further therapy at that time. Home Medications Medication Instructions Recorded Confirmed Type Aspirin EC Tab 81 mg PO QPM 06/26/17 06/26/17 History Clopidogrel [Plavix] 75 mg PO QPM 06/26/17 06/26/17 History Duloxetine HCl [Duloxetine] 60 mg PO QPM 06/26/17 06/26/17 History Esomeprazole Magnesium 40 mg PO BID 06/26/17 06/26/17 History [Esomeprazole] Levofloxacin Tab [Levaquin Tab] 500 mg PO Q48H 06/26/17 06/26/17 History Levothyroxine Tab [Synthroid Tab] 75 mcg PO DAILY@0700 06/26/17 06/26/17 History Megestrol Liquid [Megace Liquid] 400 mg PO QAM 06/26/17 06/26/17 History Metoprolol Tartrate 25 mg PO BID 06/26/17 06/26/17 History Nitrofurantoin Macrocrystal 100 mg PO BID 06/26/17 06/26/17 History [Nitrofurantoin] Promethazine HCl 25 mg PO QPM 06/26/17 06/26/17 History Rosuvastatin Calcium [Crestor] 40 mg PO QPM 06/26/17 06/26/17 History Triamterene/Hctz 75-50 Tab 1 tablet PO QAM 06/26/17 06/26/17 History [Maxzide 75-50] Zolpidem Tartrate 10 mg PO BEDTIME 06/26/17 06/26/17 History amLODIPine [Norvasc] 5 mg PO QAM 06/26/17 06/26/17 History Allergies Allergy/AdvReac Type Severity Reaction Status Date / Time Sulfa (Sulfonamide Allergy Unknown/Unable Verified 06/26/17 14:07 Antibiotics) to obtain mycin Allergy Unknown/Unable Uncoded 06/26/17 14:07 to obtain Medical,Surgical,& Family Hx - Medical History Cardio: History of: Cardiac Dysrhythmia, CAD, Hypertension Neurology: History of: TIA No history of: Seizures Respiratory: History of: Respiratory Problems (only has the left lung) - Surgical History Cardiac Surgeries: Sugical HX of: Cardiac Surgery (2 triple bypass) - Social History Smoking Status: Never smoker Frequency of Alcohol Use: None Type of Drug Use: None Exam [employer] - Constitutional Vitals: Vital Signs Temp Pulse Resp BP Pulse Ox 07/01/17 15:45 96.2 F L 90 20 137/94 96 07/01/17 11:54 97.2 F L 87 20 143/77 96 07/01/17 07:58 97.8 F 95 H 18 128/80 96 07/01/17 06:08 16 07/01/17 04:27 16 07/01/17 04:00 96.9 F L 94 H 16 115/67 96 07/01/17 02:10 16 07/01/17 00:15 18 07/01/17 00:00 97.3 F L 99 H 18 120/67 91 L 06/30/17 20:00 98.0 F 96 H 18 136/67 92 L General appearance: other (Frail and feeble) - Head Head exam: Present: normal inspection - Eye Eye exam: Present: EOMI Pupils: Present: LISA - ENT ENT exam: Present: normal exam - Neck Neck exam: Present: normal inspection - Respiratory Respiratory exam: Present: clear to auscultation bilaterally - Cardiovascular Cardiovascular exam: Present: other (Rapid and irregular) - GI/Abdominal GI/Abdominal exam: Present: normal bowel sounds, soft - Extremities Exam Extremities exam: Present: normal inspection - Back Exam Back exam: Present: normal inspection - Neurological Exam Neurological exam: Present: alert - Psychiatric Psychiatric exam: Present: normal mood - Skin Skin exam: Present: normal color Assessment and Plan (1) Pelvic mass in female Status: Acute Assessment and plan: We will draw a CA 125, CEA, CA 19-9. Hopefully these will give us an indication whether or not this benign or malignant. Based on the results we will determine the pursuit of this particular mass. Do not feel this patient surgical candidate. If is benign in nature and she is not have any severe abdominal pain or discomfort as a result of this mass will continue to observe. Thanks for my for the dictation Current Visit: Yes Results - Labs CBC & BMP: 07/01/17 10:23 07/01/17 10:23
[2017-07-01] MEDS: ENOXAPARIN 30 MG/0.3 ML SYRINGE SUBCUT SCH (21:12)
[2017-07-01] MEDS: ZALEPLON 5 MG CAPSULE PO SCH (21:13)
[2017-07-02] MEDS: SODIUM CHLORIDE 0.9% 1,000 ML IV SCH (02:24)
[2017-07-02 04:34] LABS: Basophils # 0.2 10*3/uL (0.0-0.2); Basophils % 1.1 % (0.0-0.8); Eosinophils # 0.6 10*3/uL (0.0-0.87); Eosinophils % 4.3 % (0.00-10.9); Hematocrit 30.7 VOL% (35.7-47.0); Hemoglobin 9.8 GM/DL (12.0-16.0); Immature Granulocytes % 4.5 %; Immature Granulocytes Absolute 0.67 #; Lymphocytes % 6.8 % (21.3-54.2); Mean Corpuscular HGB Conc 31.9 GM/DL (32-36); Mean Corpuscular Hemoglobin 27 PG (27-34); Mean Corpuscular Volume 84.6 FL (87-102); Mean Platelet Volume 9.2 FL (9.6-12.0); Monocytes # 1.3 10*3/uL (0.11-0.8); Monocytes % 8.8 % (1.7-12.7); Neutrophils % 74.5 % (38.7-73.9); Platelet Count 292 T/CUMM (130-400); Red Blood Count 3.63 MC/CUMM (3.8-5.5); Red Cell Distribution Width 16.5 % (9.3-17.3); White Blood Count 14.8 T/CUMM (4-12)
[2017-07-02 05:02] LABS: Calcium 8.4 MG/DL (8.5-10.1); Magnesium 2.2 MG/DL (1.8-2.4); Osmolality,Calculated 277.2 MOS/KG (273-304); Potassium 4.6 MMOL/L (3.5-5.1)
[2017-07-02 05:10] LABS: PT Patient Result 10.8 SECS; Partial Thromboplastin Time 31.9 SECS (0-40)
[2017-07-02 05:28] LABS: Band Neutrophils 1 % (0-10); Eosinophils 4 % (0-10); Giant Platelets Few; Hypochromasia 1+; Lymphocytes 6 % (20-55); Platelet Estimate Adequate; Segmented Neutrophils 83 % (50-85); Total Cells Counted 100
[2017-07-02 05:29] LABS: Ovalocytes Slight
--- NOTE | 2017-07-02 06:33 | Gastrointestinal Progress Note ---
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 This is a chronic problem, and we could certainly pull the stomach down and locked it in the abdominal cavity using a PEG tube as an anchoring device, but is mentioned to the family this produces a potential vacuum in the space used to occupy the could then be occupied by more bowel or colon. I am not sure she would be better off-- trading a more proximal obstruction for more distal obstruction potentially. If she wishes to pursue this we could probably do it at any time as long as she is off the anticoagulation long enough to place the PEG tube. If she finds herself disliking these side effects of the PEG placement we can certainly remove it prior to the gastrocutaneous fistula development/fibrotic healing and the stomach will drift back to its previous position. Of course, the family does not wish to pursue this yet, but will consider it for the future. I will sign off at this time, thank you for the interesting consult in the chance to participate in this patient's care. Current Visit: Yes (2) Abnormal findings on radiological examination of gastrointestinal tract Status: Acute Current Visit: Yes (3) Nausea and vomiting Status: Chronic Assessment and plan: Improved spontaneously. The patient is likely to have a poor appetite for the rest of her life due to the anatomic changes described above. The family does not describe significant weight loss. When her procedures are done she can resume her usual diet. Current Visit: Yes Gastroenterology - PN: Subj Interval history: I have talked to the patient herself and her son, Jignesh Ewing, and have talked to the daughter Ladonna Ewing yesterday as well. The patient feels "wore out" and does not wish to pursue the PEG tube placement to anchor the stomach and the abdominal cavity, I did mention to them that if they wish to do this in the future we can do it at any time as long as she is off of anticoagulation for about 4 days prior to the procedure. I again reviewed the pros and cons of the procedure including benefits and potential complications. We outlined the basics of the procedure as well including its endoscopic nature, (i.e. no open surgery involved). Exam (Progress Note) - Constitutional Vitals: Period Temp Pulse Resp BP Sys/Pate Pulse Ox Last 24 Hr 96.2 F-97.8 F 87-97 18-20 128-159/70-94 90-96 General appearance: mild distress - Head Head exam: Present: normocephalic - Eye Eye exam: Present: EOMI - Respiratory Respiratory exam: Present: clear to auscultation bilaterally - Cardiovascular Cardiovascular exam: Present: regular rate and rhythm - GI/Abdominal GI/Abdominal exam: Present: normal bowel sounds, soft. Absent: distended, guarding, tenderness, rebound - Extremities Exam Extremities exam: Absent: edema - Neurological Exam Neurological exam: Present: alert, altered (Mild-moderate dementia) - Psychiatric Psychiatric exam: Present: normal affect, normal mood - Skin Skin exam: Present: warm Results - Labs CBC & BMP: 07/02/17 04:15 07/02/17 04:15
[2017-07-02 07:30] LABS: Cancer Antigen 19-9 26.4 U/ML (0-37); Carcinoembryonic Antigen 4.3 NG/ML (0.0-5.0)
--- NOTE | 2017-07-02 07:45 | EKG Report ---
Stationary ECG Study [facility] Test Date: 07/02/2017 7:43:51 AM Pat Name: BENJAMIN AGARWAL Department: Room: 263 Gender: F Bee Keeper: MAURICIO : 1935 Requested by: Adolph aBrth Order Number: [id number] Reading MD: ENDER SELLERS Intervals [place] Rate: 138 P: 227 [place]: 102 QRS: 9 QRSD: 138 T: 154 QT: 329 QTc: 409 Interpretive Statements SINUS TACHYCARDIA INTRAVENTRICULAR CONDUCTION DELAY Electronically Signed On 07-02-17 15:58:48 CDT by ENDER SELLERS [email or web address]
--- NOTE | 2017-07-02 07:47 | History and Physical Update ---
Sedation H&P Update - History and Physical H&P was reviewed, the patient examined and there: are no changes in the patients condition since last H&P was completed. - Dictation Physical: refer to H&P completed by admitting physician - Physical Exam Mental Status: alert and oriented Heart: other (regular, tachy) Lung: clear to auscultation, other (no breath sounds on L) Abdomen: within normal limits Vitals: within normal limits - Sedation Plan for Sedation: minimal Patient Consent: Procedure disscussed with patient and patinet has consented., Risks and benefits were discussed with patient,including infection,, bleeding, injury to surrounding structures, seizure, temporary nerve, Patient understands and accepts potential risks/benefits and agrees to ASA Class: IV Airway Assessment: Class II: Soft palate, uvula, fauces visible
--- NOTE | 2017-07-02 07:47 | Electrophysiology Progress Not ---
Assessment and Plan (1) Wide-complex tachycardia Status: Acute Assessment and plan: 81-year-old female, presenting with syncope, wide QRS tachycardia. She converted back to sinus rhythm, are getting IV Cardizem. On the monitor, she had recurrent runs of narrow and wQRS tachycardia, sometimes with warm up, which would be more suggestive of 80/SVT, with rate related aberrancy. However , some tracing showed white crest tachycardia, with beats suggestive of capture beats, suggesting VT. although, on prior prior EKGs, she has evidence of PVCs with VA conduction, raising the suspicion for AVRT/AVNRT. The arrhythmia was hemodynamically significant and led to syncope, is recurrent. Although there is history of atrial fibrillation, I did not see these documented with an EKG in her medical records. 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 The arrhythmia and clinical course so far suggestive of SVT/aberrancy, although , some tracings on the telemetry raise the suspicion of double tachycardia. Comorbidities, hypotension limit antiarrhythmic options. She still has recurrent, fast regular, wide QRS arrhythmia on telemetry. -Again discussed risks and benefits of management options for her arrhythmia with her and her family members. Her comorbidities limit options with medical management. Her frequently recurrent arrhythmia will need to be addressed, as it led to syncope and if GI or surgical intervention is planned for her chronic issues. She is high risk for periprocedural complications. If VT is diagnosed , she would not be a candidate for ICD at this time, until ongoing infection is ruled out and her prognosis from her comorbidities can be better established. -We will plan to proceed with EP study/ablation today, around noon. Keep n.p.o. -I suspect she may have aspirated or is developing HCAP. Plan to use minimal sedation for the procedure. She is high risk for periprocedural complications, although her prognosis is extremely limited, unless her incessant arrhythmia can be controlled. She and her family understands the risks and wishes to proceed. Current Visit: Yes (2) Arrhythmia Status: Acute Current Visit: Yes (3) Chronic renal insufficiency, stage III (moderate) Status: Chronic Current Visit: Yes (4) History of pelvic mass Status: Acute Current Visit: Yes (5) Leukocytosis Status: Acute Current Visit: Yes (6) Nausea and vomiting Status: Chronic Current Visit: Yes (7) UTI (urinary tract infection) Status: Acute Current Visit: Yes (8) Atrial fibrillation Status: Resolved Current Visit: Yes Qualifiers: Atrial fibrillation type: paroxysmal Qualified Code(s): I48.0 - Paroxysmal atrial fibrillation Electrophysiology Subjective Interval history: She developed productive cough, wheezing last night. No fever, WBC still elevated. Creatinine trending around 3. This morning, she again went into incessant, regular wide QRS tachycardia, minimally symptomatic at rest. She is still feeling generally unwell. Exam - Constitutional Vitals: Period Temp Pulse Resp BP Sys/Pate Pulse Ox Last 24 Hr 96.2 F-97.8 F 87-97 18-20 128-159/70-94 90-96 General appearance: normal weight, no acute distress - Head Head exam: Present: normal inspection - Eye Eye exam: Absent: conjunctival injection, scleral icterus Pupils: Absent: dilated - ENT ENT exam: Present: normal external ear exam - Neck Neck exam: Present: normal inspection - Respiratory Respiratory exam: Present: clear to auscultation bilaterally, other (No breath sounds on left side). Absent: chest wall tenderness - Cardiovascular Cardiovascular exam: Present: systolic murmur, tachycardia. Absent: JVD - GI/Abdominal GI/Abdominal exam: Present: normal bowel sounds. Absent: distended - Extremities Exam Extremities exam: Present: normal inspection, normal capillary refill - Back Exam Back exam: Present: normal inspection - Neurological Exam Neurological exam: Present: alert, oriented X3 - Psychiatric Psychiatric exam: Present: normal affect, normal mood - Skin Skin exam: Present: normal color, warm. Absent: cyanosis Results - Labs CBC & BMP: 07/02/17 04:15 07/02/17 04:15 Lab Results: I have reviewed the past 24 hour labs
--- NOTE | 2017-07-02 08:10 | Event Note ---
The patient changed her mind and does not want to go ahead with the EP study/ ablation today. We discussed the implication with the attending her family, she understands the risks. We are very limited by antiarrhythmic choices, given her comorbidities. Single functioning lung, severe CKD, recurrent wQRS tachycardia. -cont metoprolol -start cardizem 30 mg q8h. this may help, if the arrhythmia is SVT. -Keep on telemetry.
[2017-07-02] MEDS ORDERED: DILTIAZEM 30 MG TABLET PO SCH (09:00)
[2017-07-02] MEDS: LEVOTHYROXINE 75 MCG TABLET PO SCH (10:19)
[2017-07-02] MEDS: PANTOPRAZOLE 40 MG TABLET PO SCH (10:20)
[2017-07-02] MEDS: METOPROLOL TARTRATE 100 MG TABLET PO SCH ×2 (10:20→20:58)
[2017-07-02] MEDS: MEGESTROL 400 MG/10 ML UDCUP PO SCH (10:20)
[2017-07-02] MEDS: TRIAMTERENE/HCTZ 75-50 MG TABLET PO SCH (10:20)
[2017-07-02] MEDS: NITROFURANTOIN MACROCRYSTALS 100 MG CAPSULE PO SCH (10:21)
--- NOTE | 2017-07-02 10:22 | Ultrasound Report ---
History: Elevated creatinine. Renal failure Date: 07/02/2017 Study: Renal ultrasound bilateral, kidneys only Comparison exam: Noncontrast CT abdomen June 30, 2017 Real-time ultrasound images are captured and archived. The right kidney measures 94 x 51 x 53 mm; the left kidney measures 75 x 50 x 35 mm. There is no hydronephrosis or abnormal perinephric fluid. The renal parenchyma is hyperechoic to the hepatic parenchyma compatible with some diffuse medical renal parenchymal disease. There is diffuse thinning of the renal cortex on the left, with no cortical thinning on the right. There is no focal renal mass. Impression: Diffuse medical renal parenchymal disease. No hydronephrosis. Renal atrophy on the left PROCEDURE INTERPRETED AT [facility] DEPARTMENT OF RADIOLOGY Final Report Signed by: Dr. Brandy Stein
[2017-07-02] MEDS ORDERED: CLORAZEPATE 3.75 MG TABLET PO ONE (11:07)
--- NOTE | 2017-07-02 14:37 | Cardiology Progress Note ---
I, Tracy Servin NP, am scribing for, and in the presence of, Pancho Perdomo MD 14:37. Assessment and Plan (1) Pre-syncope Status: Resolved Assessment and plan: SEE PLAN LISTED BELOW Current Visit: Yes (2) Arrhythmia Status: Acute Assessment and plan: SEE PLAN LISTED BELOW Current Visit: Yes (3) Atrial fibrillation Status: Resolved Assessment and plan: SEE PLAN LISTED BELOW Current Visit: Yes Qualifiers: Atrial fibrillation type: paroxysmal Qualified Code(s): I48.0 - Paroxysmal atrial fibrillation (4) Coronary artery disease Status: Chronic Assessment and plan: SEE PLAN LISTED BELOW Current Visit: Yes Qualifiers: Coronary Disease-Associated Artery/Lesion type: [place] artery [place] vs. transplanted heart: [place] heart Associated angina: without angina Qualified Code(s): I25.10 - Atherosclerotic heart disease of [place] coronary artery without angina pectoris (5) Nausea and vomiting Status: Chronic Assessment and plan: SEE PLAN LISTED BELOW Current Visit: Yes (6) Pelvic cyst Status: Chronic Assessment and plan: SEE PLAN LISTED BELOW Current Visit: Yes (7) Leukocytosis Status: Acute Assessment and plan: SEE PLAN LISTED BELOW Current Visit: Yes Cardiology - PN: Subj Interval history: SR. OPERATIONS MANAGER: Dr. Cartagena SUMMARY: Ms. Loo is an 81 WF, admitted for syncope. The patient has had progressive generalized weakness with ongoing anorexia, nausea, and vomiting. The patient was noted to have "SVT" that "broke" with IV Cardizem in the ER. The patient did recognize she was having palpitations at that time. Significant cardiac history includes: coronary artery disease (status post coronary artery bypass grafting in the remote past at [facility] (1989, 2005)), atrial fibrillation, "SVT", hypertension. The last clinic visit with Dr. Cartagena that I can find was in June 2016. The last echocardiogram on record was August 2013 which demonstrated an ejection fraction of 60%. Dr. Barth has been consulted due to wide complex tachycardia. There is also a possible "pelvic mass" discovered on CT accidentally 1 year ago that was never worked up. She has had some ongoing nausea and anorexia, no diarrhea. Denies hematochezia emesis, coffee-ground emesis, melena, or bright red blood per rectum. She is not on anticoagulation. Patient is taking Levaquin after being diagnosed and treated for urosepsis on recent hospitalization. 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 The patient has been maintained on a Cardizem drip, will stop this and start oral metoprolol 100 mg twice daily. We may need to add amiodarone due to renal dysfunction and CAD. Sinus rhythm with occasional ventricular premature complexes rate controlled in the 90s, blood pressure in the normal range. Dr. Barth recommends an EP evaluation when GI workup pelvic mass workup is complete and prognosis is established. If this process is prolonged, LifeVest is recommended due to high risk for sudden cardiac with her presentation. Labs reviewed: WBC is 15,000, H&H 10 and 31; Electrolytes WNL; Creatinine 2.4. JUNE 29, 2017: The patient family has deferred GI workup, and wished to follow -up with Dr. Black at [place] upon discharge. We will consult EMBEDDED NURSE for workup of pelvic cyst that was found on CT scan approximately one year ago. Pelvic ultrasound reveals the patient is status post hysterectomy. There is an indeterminate 92 x 83 x 70 mm cystic masslike finding in the mid pelvis without septations. Finding is thought probably ovarian in nature because of the size. Dr. Barth would like to rule out infection prior to patient undergoing EP evaluation. Labs reveal a white count of 16,000, H&H 1031 which is stable. Electrolytes WNL. Creatinine 2.7, BUN 33. Patient has had sustained wide QRS tachycardia, remains asymptomatic. Plan for EP evaluation with possible ablation on Wednesday. June 30, 2017: Awaiting EMBEDDED NURSE consult for pelvic cyst. Overall, the patient describes not feeling well. She has remained afebrile with the persistent leukocytosis. She is on Levaquin and Macrodantin, as she was previously hospitalized reported urosepsis. Will consult ID for an opinion. The patient also has a very dramatic chest x-ray today with contrast in her colon, and her colon is in her left hemothorax. There appears to be a severe elevation of the left hemidiaphragm. I had a very long discussion with the patient and her son about getting this evaluated. They had a disagreement with Dr. Pond earlier in this hospital stay and I discussed the case with Dr. Calero today. I am going to get a second opinion from him. I am going to check a CT of the chest per his request to assist in evaluation of this abnormality. Our goal is to proceed with the EP study on Wednesday.. Labs reviewed, creatinine 3.0. Sodium 135, potassium 3.4, hemoglobin 9.7, hematocrit 29.7, WBC 16.2. Vital signs have remained stable. Family at bedside and discussed plan of care with the patient and her son. JULY 01, 2017: The patient did well overnight. CT of the chest, abdomen, and pelvis showed a cystic mass within the left adnexa. Evaluation was not possible due to barium within the large bowel, mid interstitial pulmonary edema noted, small sided left pleural effusion, and left hemidiaphragm is elevated with contrast-filled large bowel underlying the hemidiaphragm. We have consulted infectious disease for persistent leukocytosis of unestablished etiology. Gastroenterology has seen the patient for evaluation of numerous GI issues, including nutrition. I appreciate their assistance. Awaiting EMBEDDED NURSE consult for evaluation of pelvic mass. Vital signs have remained stable, pulse rate in the 90s. After labs reviewed today, plan to consult nephrology for slowly rising creatinine. It is up to 3.2 today, with the hyponatremia, sodium 133, BUN 44. Will plan to gently rehydrate the patient with IV fluids, as she is eating and drinking very little. And would appreciate nephrology's assistance. Plan for EP study with Dr. Barth tomorrow around noon, will hold the patient n.p.o. after midnight. 2016: The patient decided this morning that she did not want to go through with an EP study today. This morning she was found to be tachycardic with a heart rate in the 130s. Patient was seen by Dr. Barth this morning who started her on Cardizem. Overall she just does not feel well, and has very little appetite. EMBEDDED NURSE did see the patient for an evaluation of the pelvic cyst, he added a CA 125, CEA, and CA 19-9 to help determine if this abnormality is malignant or benign. His note indicates to to the structural nature of the cyst, it is likely benign. The patient was evaluated by infectious disease, who did not see an obvious source of infection and thought the leukocytosis may be a stress response. I am going to stop all of her antibiotics at this time, she has been on them from her previous admission for urosepsis. Patient has also decided not to pursue an option for PEG tube by GI. As the patient has refused any sort of interventions that we might be able to perform to help, there is little left and in terms of treatment. She is very frail and weak and we will plan to evaluate patient for swing bed options for discharge. Impression and plan: 1. Presyncope-this appears to be somewhat related to the arrhythmia that she had on presentation, we are planning an EP study on Wednesday. 2. Arrhythmia-wide complex tachycardia, continue metoprolol 100 mg twice daily. Her rhythm has been stable since starting this. Consider oral amiodarone due to kidney function and CAD. If the patient is discharged, a LifeVest should be considered.. We discussed the case with Dr. Barth today who is planning an EP study and potential ablation on Wednesday. 3. Leukocytosis-significance of this is unknown, continue Levaquin blood cultures and urine culture negative at 48 hours. Consult ID. I discussed the case with Dr. Guzman Wang today. She does not see any obvious source of ongoing infection and she suspects the white count is simply stress response. 4. Renal insufficiency-duration is unknown but this seems to be gradually worsening and she has developed mild hyponatremia as well, mid pelvic mass 92 X 83 X 70 mm; atrophic left kidney with small cysts. 5. Subacute ongoing nausea and anorexia. I am consulting Dr. Calero to assist in workup and management of this problem and her abnormal swallowing study and chest x-ray. 6. Generalized debility- We will need to get her evaluated for swing bed placement at the time of discharge. 7. History of coronary artery disease-I suspect that this pathology is somewhat stable based on her history, cardiac biomarkers negative. Exam (Progress Note) - Constitutional Vitals: Period Temp Pulse Resp BP Sys/Pate Pulse Ox Last 24 Hr 96.2 F-97.6 F 90-137 18-20 102-159/53-94 90-96 Exam: General: Appears well with no apparent distress. Pleasant and cooperative. Appears comfortable. HEENT: PERRL, normocephalic, atraumatic. Mucous membranes moist. No jaundice noted. Conjunctiva moist and clear, sclerae anicteric. Neck: No JVD/HJR, no thyromegaly or lymphadenopathy noted. No carotid bruit appreciated. Cardiac: Regular rate and rhythm. No murmur rub or gallop. PMI is nondisplaced. Lungs: Essentially clear bilaterally without accessory muscle use to assist the respiratory pattern. No oxygen required Abdomen: Soft, bowel sounds normoactive. Nontender and nondistended. No abdominal bruit or thrill noted. No masses noted. Musculoskeletal: No fluid collection. Decreased range of motion is noted. Extremities: No clubbing, cyanosis noted. No edema noted. Upper extremity pulses 2+. Lower extremity pulses 2+. Capillary refill less than 3 seconds. Skin: No unusual lesions or rashes. No skin breakdown appreciated. Neuro: Awake, alert and oriented to self and place. Moves all extremities well without hemiparesis or paralysis. No essential tremor is appreciated. Result/EKG - Labs CBC & BMP: 07/02/17 04:15 07/02/17 04:15 Lab Results: I have reviewed the past 24 hour labs Labs: Laboratory Results - last 24 hr 07/02/17 07/02/17 07/02/17 04:15 04:15 04:15 WBC 14.8 H RBC 3.63 L Hgb 9.8 L Hct 30.7 L MCV 84.6 L MCH 27 MCHC 31.9 L RDW 16.5 Plt Count 292 MPV 9.2 L Neut % (Auto) 74.5 H Lymph % (Auto) 6.8 L [place] % (Auto) 8.8 Eos % (Auto) 4.3 Baso % (Auto) 1.1 H Neut # (Auto) 11.0 H Lymph # (Auto) 1.0 L [place] # (Auto) 1.3 H Eos # (Auto) 0.6 Baso # (Auto) 0.2 Total Counted 100 Immature Gran % 4.5 Nucleated RBC % 0.0 Immature Gran # 0.67 Segmented Neutrophils 83 Band Neutrophils 1 Lymphocytes 6 L Monocytes 6 Eosinophils 4 Nucleated RBCs # 0.00 Platelet Estimate Adequate Giant Platelets Few Immature Plt Fraction 0.0 Hypochromasia 1+ Ovalocytes Slight INR 1.0 PT Patient/Control Mix 10.8 Circ Anticoag PTT 31.9 Sodium 134 L Potassium 4.6 Chloride 97 L Carbon Dioxide 29 Anion Gap 12.6 BUN 41 H Creatinine 3.00 H GFR Calculation 12 BUN/Creatinine Ratio 13.00 Glucose 102 Calculated Osmolality 277.2 Calcium 8.4 L Magnesium 2.2 Carcinoembryonic Ag CA 19-9 Antigen 07/02/17 04:15 WBC RBC Hgb Hct MCV MCH MCHC RDW Plt Count MPV Neut % (Auto) Lymph % (Auto) [place] % (Auto) Eos % (Auto) Baso % (Auto) Neut # (Auto) Lymph # (Auto) [place] # (Auto) Eos # (Auto) Baso # (Auto) Total Counted Immature Gran % Nucleated RBC % Immature Gran # Segmented Neutrophils Band Neutrophils Lymphocytes Monocytes Eosinophils Nucleated RBCs # Platelet Estimate Giant Platelets Immature Plt Fraction Hypochromasia Ovalocytes INR PT Patient/Control Mix Circ Anticoag PTT Sodium Potassium Chloride Carbon Dioxide Anion Gap BUN Creatinine GFR Calculation BUN/Creatinine Ratio Glucose Calculated Osmolality Calcium Magnesium Carcinoembryonic Ag 4.3 CA 19-9 Antigen 26.4 - EKG EKG results: interpreted by me EKG shows: tachycardia I, Pancho Perdomo MD, personally performed the services described in this documentation, ascribed by Tracy Servin NP in my presence, and it is both accurate and complete [id number] .
[2017-07-02] MEDS: DILTIAZEM 60 MG TABLET PO SCH ×2 (14:40→20:58)
[2017-07-02] MEDS: PROMETHAZINE 25 MG TABLET PO SCH (18:21)
[2017-07-02] MEDS: CLOPIDOGREL 75 MG TABLET PO SCH (18:21)
[2017-07-02] MEDS: ROSUVASTATIN 20 MG TABLET PO SCH (18:21)
[2017-07-02] MEDS: DULoxetine 30 MG CAPSULE PO SCH (18:22)
[2017-07-02] MEDS: ASPIRIN EC 81 MG TABLET PO SCH (18:22)
[2017-07-02] MEDS: ENOXAPARIN 30 MG/0.3 ML SYRINGE SUBCUT SCH (20:57)
[2017-07-02] MEDS: ZALEPLON 5 MG CAPSULE PO SCH (20:58)
[2017-07-03 05:32] LABS: Basophils # 0.1 10*3/uL (0.0-0.2); Basophils % 0.5 % (0.0-0.8); Eosinophils % 0.3 % (0.00-10.9); Hematocrit 29.5 VOL% (35.7-47.0); Hemoglobin 9.5 GM/DL (12.0-16.0); Immature Granulocytes % 6.3 %; Immature Granulocytes Absolute 1.01 #; Lymphocytes # 1.4 10*3/uL (1.4-4.0); Lymphocytes % 8.4 % (21.3-54.2); Mean Corpuscular HGB Conc 32.2 GM/DL (32-36); Mean Corpuscular Hemoglobin 28 PG (27-34); Mean Corpuscular Volume 85.8 FL (87-102); Mean Platelet Volume 8.9 FL (9.6-12.0); Monocytes # 1.1 10*3/uL (0.11-0.8); Monocytes % 6.6 % (1.7-12.7); NRBC # 0.04 10*3/uL; Neutrophils # 12.5 10*3/uL (1.4-7.4); Neutrophils % 77.9 % (38.7-73.9); Platelet Count 279 T/CUMM (130-400); Red Blood Count 3.44 MC/CUMM (3.8-5.5); Red Cell Distribution Width 16.7 % (9.3-17.3)
[2017-07-03] MEDS: HEPARIN DRIP 25,000 UNITS/500 ML PREMIX IV SCH (06:05)
[2017-07-03 06:06] LABS: INR 1.1; PT Patient Result 11.4 SECS; Partial Thromboplastin Time 25.9 SECS (0-40)
[2017-07-03] MEDS: SODIUM CHLORIDE 0.9% 1,000 ML IV SCH (06:06)
[2017-07-03 06:07] LABS: Albumin 2.6 G/DL (3.4-5.0); Bilirubin,Total 0.4 MG/DL (0.2-1.0); Calcium 8.2 MG/DL (8.5-10.1); Osmolality,Calculated 280.5 MOS/KG (273-304); Potassium 4.6 MMOL/L (3.5-5.1); Total Protein 5.9 G/DL (6.4-8.3)
[2017-07-03 06:24] LABS: Eosinophils 2 % (0-10); Lymphocytes 8 % (20-55); Metamyelocytes 3 %; Myelocytes 4 %; Segmented Neutrophils 81 % (50-85); Total Cells Counted 100
[2017-07-03 06:25] LABS: Anisocytosis 1+; Ovalocytes Few; Platelet Estimate Normal
--- NOTE | 2017-07-03 07:31 | Electrophysiology Progress Not ---
Assessment and Plan (1) Wide-complex tachycardia Status: Acute Assessment and plan: 81-year-old female, presenting with syncope, wide QRS tachycardia. She converted back to sinus rhythm, are getting IV Cardizem. On the monitor, she had recurrent runs of narrow and wQRS tachycardia, sometimes with warm up, which would be more suggestive of 80/SVT, with rate related aberrancy. However , some tracing showed white crest tachycardia, with beats suggestive of capture beats, suggesting VT. although, on prior prior EKGs, she has evidence of PVCs with VA conduction, raising the suspicion for AVRT/AVNRT. The arrhythmia was hemodynamically significant and led to syncope, is recurrent. Although there is history of atrial fibrillation, I did not see these documented with an EKG in her medical records. 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 The arrhythmia and clinical course so far suggestive of SVT/aberrancy, although , some tracings on the telemetry raise the suspicion of double tachycardia. Comorbidities, hypotension limit antiarrhythmic options. She still has recurrent, fast regular, wide QRS arrhythmia on telemetry. Now, with rapid onset change in mental status, lethargy, hypoxia, worsening renal function, LFTs, persistently elevated WBCs. -The differential for acute onset change in mental status remains wide, includes CVA, worsening metabolic encephalopathy, infection. Endocarditis may be a potential explanation for her symptoms and clinical course, transthoracic echo showed sclerotic valves, without obvious large masses a week ago. -No atrial fibrillation on telemetry. -No recent recurrence of her frequently recurrent SVT overnight. Recommend to continue metoprolol and Cardizem. If bradycardia limits medications, stop Cardizem. -Discussed CODE STATUS briefly with the family member at bedside, patient is unable to participate in conversation. Per family, she did not want prolonged life support. Given the involvement of multiple family members in her case, I suggest a family meeting. -I will be off for the holiday weekend, please call with further questions. Current Visit: Yes (2) Arrhythmia Status: Acute Current Visit: Yes (3) Chronic renal insufficiency, stage III (moderate) Status: Chronic Current Visit: Yes (4) History of pelvic mass Status: Acute Current Visit: Yes (5) Leukocytosis Status: Acute Current Visit: Yes (6) Nausea and vomiting Status: Chronic Current Visit: Yes (7) UTI (urinary tract infection) Status: Acute Current Visit: Yes (8) Atrial fibrillation Status: Resolved Current Visit: Yes Qualifiers: Atrial fibrillation type: paroxysmal Qualified Code(s): I48.0 - Paroxysmal atrial fibrillation Electrophysiology Subjective Interval history: Around 4 AM she had a rapid onset changes in mental status, she is quite lethargic right now, does not respond to verbal stimuli. Telemetry showed sinus rhythm, occasional PVCs, no atrial fibrillation or recurrence of the SVT. The blood pressure stayed in an acceptable range. She was found to be bradycardic during that time, however, no critical bradycardia was noted on telemetry. Head CT was done, official reading pending, per verbal report, there was no bleeding. She is on a heparin drip. Labs show still elevated WBC count, markedly elevated LFTs, normal coags. Creatinine increasing. She was hypoxic earlier today, despite facemask, now saturation back to 100%. Exam - Constitutional Vitals: Period Temp Pulse Resp BP Sys/Pate Pulse Ox Last 24 Hr 96.1 F-97.7 F 61-137 18-20 102-145/51-77 88-93 General appearance: normal weight, no acute distress - Head Head exam: Present: normal inspection. Absent: atraumatic - Eye Eye exam: Absent: conjunctival injection, scleral icterus Pupils: Absent: dilated - ENT ENT exam: Present: normal external ear exam - Neck Neck exam: Present: normal inspection - Respiratory Respiratory exam: Present: clear to auscultation bilaterally. Absent: chest wall tenderness - Cardiovascular Cardiovascular exam: Present: regular rate and rhythm. Absent: JVD, systolic murmur - GI/Abdominal GI/Abdominal exam: Present: normal bowel sounds, hypoactive bowel sounds - Extremities Exam Extremities exam: Present: normal inspection, normal capillary refill, edema (1+ ) - Neurological Exam Neurological exam: Present: altered - Skin Skin exam: Present: normal color, warm. Absent: cyanosis Results - Labs CBC & BMP: 07/03/17 05:09 07/03/17 05:09 Lab Results: I have reviewed the past 24 hour labs
[2017-07-03] MEDS: LEVOTHYROXINE 75 MCG TABLET PO SCH (09:11)
[2017-07-03] MEDS: DILTIAZEM 60 MG TABLET PO SCH ×3 (09:11→22:04)
[2017-07-03] MEDS: METOPROLOL TARTRATE 100 MG TABLET PO SCH ×2 (09:11→22:04)
[2017-07-03] MEDS: PANTOPRAZOLE 40 MG TABLET PO SCH (09:11)
[2017-07-03] MEDS: MEGESTROL 400 MG/10 ML UDCUP PO SCH (09:11)
[2017-07-03] MEDS: TRIAMTERENE/HCTZ 75-50 MG TABLET PO SCH (09:11)
--- NOTE | 2017-07-03 10:39 | Cardiology Progress Note ---
Assessment and Plan (1) Pre-syncope Status: Resolved Assessment and plan: SEE PLAN LISTED BELOW Current Visit: Yes (2) Arrhythmia Status: Acute Assessment and plan: SEE PLAN LISTED BELOW Current Visit: Yes (3) Atrial fibrillation Status: Resolved Assessment and plan: SEE PLAN LISTED BELOW Current Visit: Yes Qualifiers: Atrial fibrillation type: paroxysmal Qualified Code(s): I48.0 - Paroxysmal atrial fibrillation (4) Coronary artery disease Status: Chronic Assessment and plan: SEE PLAN LISTED BELOW Current Visit: Yes Qualifiers: Coronary Disease-Associated Artery/Lesion type: [place] artery [place] vs. transplanted heart: [place] heart Associated angina: without angina Qualified Code(s): I25.10 - Atherosclerotic heart disease of [place] coronary artery without angina pectoris (5) Nausea and vomiting Status: Chronic Assessment and plan: SEE PLAN LISTED BELOW Current Visit: Yes (6) Pelvic cyst Status: Chronic Assessment and plan: SEE PLAN LISTED BELOW Current Visit: Yes (7) Leukocytosis Status: Acute Assessment and plan: SEE PLAN LISTED BELOW Current Visit: Yes Cardiology - PN: Subj Interval history: Ms. Loo is an 81 WF, admitted for syncope. The patient has had progressive generalized weakness with ongoing anorexia, nausea, and vomiting. The patient was noted to have "SVT" that "broke" with IV Cardizem in the ER. The patient did recognize she was having palpitations at that time. Significant cardiac history includes: coronary artery disease (status post coronary artery bypass grafting in the remote past at [facility] (1989, 2005)), atrial fibrillation, "SVT", hypertension. The last clinic visit with Dr. Cartagena that I can find was in June 2016. The last echocardiogram on record was August 2013 which demonstrated an ejection fraction of 60%. Dr. Barth has been consulted due to wide complex tachycardia. There is also a possible "pelvic mass" discovered on CT accidentally 1 year ago that was never worked up. She has had some ongoing nausea and anorexia, no diarrhea. Denies hematochezia emesis, coffee-ground emesis, melena, or bright red blood per rectum. She is not on anticoagulation. Patient is taking Levaquin after being diagnosed and treated for urosepsis on recent hospitalization. 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 The patient has been maintained on a Cardizem drip, will stop this and start oral metoprolol 100 mg twice daily. We may need to add amiodarone due to renal dysfunction and CAD. Sinus rhythm with occasional ventricular premature complexes rate controlled in the 90s, blood pressure in the normal range. Dr. Barth recommends an EP evaluation when GI workup pelvic mass workup is complete and prognosis is established. If this process is prolonged, LifeVest is recommended due to high risk for sudden cardiac with her presentation. Labs reviewed: WBC is 15,000, H&H 10 and 31; Electrolytes WNL; Creatinine 2.4. JUNE 29, 2017: The patient family has deferred GI workup, and wished to follow -up with Dr. Black at [place] upon discharge. We will consult INFORMATION TECHNOLOGY DATA ANALYST for workup of pelvic cyst that was found on CT scan approximately one year ago. Pelvic ultrasound reveals the patient is status post hysterectomy. There is an indeterminate 92 x 83 x 70 mm cystic masslike finding in the mid pelvis without septations. Finding is thought probably ovarian in nature because of the size. Dr. Barth would like to rule out infection prior to patient undergoing EP evaluation. Labs reveal a white count of 16,000, H&H 1031 which is stable. Electrolytes WNL. Creatinine 2.7, BUN 33. Patient has had sustained wide QRS tachycardia, remains asymptomatic. Plan for EP evaluation with possible ablation on Wednesday. June 30, 2017: Awaiting INFORMATION TECHNOLOGY DATA ANALYST consult for pelvic cyst. Overall, the patient describes not feeling well. She has remained afebrile with the persistent leukocytosis. She is on Levaquin and Macrodantin, as she was previously hospitalized reported urosepsis. Will consult ID for an opinion. The patient also has a very dramatic chest x-ray today with contrast in her colon, and her colon is in her left hemothorax. There appears to be a severe elevation of the left hemidiaphragm. I had a very long discussion with the patient and her son about getting this evaluated. They had a disagreement with Dr. Pond earlier in this hospital stay and I discussed the case with Dr. Calero today. I am going to get a second opinion from him. I am going to check a CT of the chest per his request to assist in evaluation of this abnormality. Our goal is to proceed with the EP study on Bart.. Labs reviewed, creatinine 3.0. Sodium 135, potassium 3.4, hemoglobin 9.7, hematocrit 29.7, WBC 16.2. Vital signs have remained stable. Family at bedside and discussed plan of care with the patient and her son. JULY 01, 2017: The patient did well overnight. CT of the chest, abdomen, and pelvis showed a cystic mass within the left adnexa. Evaluation was not possible due to barium within the large bowel, mid interstitial pulmonary edema noted, small sided left pleural effusion, and left hemidiaphragm is elevated with contrast-filled large bowel underlying the hemidiaphragm. We have consulted infectious disease for persistent leukocytosis of unestablished etiology. Gastroenterology has seen the patient for evaluation of numerous GI issues, including nutrition. I appreciate their assistance. Awaiting INFORMATION TECHNOLOGY DATA ANALYST consult for evaluation of pelvic mass. Vital signs have remained stable, pulse rate in the 90s. After labs reviewed today, plan to consult nephrology for slowly rising creatinine. It is up to 3.2 today, with the hyponatremia, sodium 133, BUN 44. Will plan to gently rehydrate the patient with IV fluids, as she is eating and drinking very little. And would appreciate nephrology's assistance. Plan for EP study with Dr. Barth tomorrow around noon, will hold the patient n.p.o. after midnight. 2016: The patient decided this morning that she did not want to go through with an EP study today. This morning she was found to be tachycardic with a heart rate in the 130s. Patient was seen by Dr. Barth this morning who started her on Cardizem. Overall she just does not feel well, and has very little appetite. INFORMATION TECHNOLOGY DATA ANALYST did see the patient for an evaluation of the pelvic cyst, he added a CA 125, CEA, and CA 19-9 to help determine if this abnormality is malignant or benign. His note indicates to to the structural nature of the cyst, it is likely benign. The patient was evaluated by infectious disease, who did not see an obvious source of infection and thought the leukocytosis may be a stress response. I am going to stop all of her antibiotics at this time, she has been on them from her previous admission for urosepsis. Patient has also decided not to pursue an option for PEG tube by GI. As the patient has refused any sort of interventions that we might be able to perform to help, there is little left and in terms of treatment. She is very frail and weak and we will plan to evaluate patient for swing bed options for discharge. 2016: Unfortunately, the patient had a significant mental status change overnight. She has a significant bump in her creatinine, liver function tests, altered mental status, and decreased respiratory drive. We checked a CT of the head to rule out acute bleed or stroke. The final report is still pending but there is no evidence of bleed. I started the patient on heparin. She is already on aspirin and Plavix as well. At the time I was seeing the patient she was unresponsive. She would open her eyes but had no purposeful movements and did not follow commands. I had a long discussion with the patient 's family. I have decided to make her DNR/comfort care. The patient had been telling them that she was tired of suffering which is one reason she had refused all the other treatments we had offered. At this point we are going to shift our management to comfort measures. Impression and plan: 1. Multi-system organ failure: The patient has neurologic, cardiac, respiratory , liver function, and renal compromise. During this hospital stay she has refused all potential interventions that might help. She has told the family that she is tired of suffering and is ready to pass. The patient's family has requested that we make her DNR and just keep her comfortable at this time. 2. Arrhythmia-wide complex tachycardia, we have adjusted her medication and this is reasonably well controlled now. An EP study was planned with the patient refused yesterday. 3. Leukocytosis-significance of this is unknown, continue Levaquin blood cultures and urine culture negative at 48 hours. Consult ID. I discussed the case with Dr. Guzman Wang. She does not see any obvious source of ongoing infection and she suspects the white count is simply stress response. 4. Renal insufficiency-duration is unknown but this seems to be gradually worsening and she has developed mild hyponatremia as well, mid pelvic mass 92 X 83 X 70 mm; atrophic left kidney with small cysts. 5. Subacute ongoing nausea and anorexia. This is a chronic issue related to previous abdominal surgeries and extensive pathology. She has refused any sort of procedure to try to improve this. 6. Generalized debility- We will need to get her evaluated for swing bed placement at the time of discharge. 7. History of coronary artery disease-I suspect that this pathology is somewhat stable based on her history, cardiac biomarkers negative. Exam (Progress Note) - Constitutional Vitals: Period Temp Pulse Resp BP Sys/Pate Pulse Ox Last 24 Hr 96.1 F-97.7 F 61-135 18-20 102-153/51-67 88-98 General appearance: cachectic Exam: General: Frail, elderly, chronically ill-appearing, unresponsive HEENT: Normocephalic, atraumatic Neck: Supple Neck, Midline Trachea Cardiac: Regular rhythm, 2/6 systolic murmur, no gallop, no rub Lungs: Uncooperative exam with no overt rales or wheeze Neuro: The patient is unresponsive at this time Abdomen: Soft, Active Bowel Sounds, No Masses, No Pulsations/Bruits Skin: Normal color, no rash Extremities: No Clubbing, No Cyanosis, No Edema, Normal Upper Extr. Pulses Musculoskeletal: The patient is not moving/following commands at this time Psychiatric: As noted, she is unresponsive. Result/EKG - Labs CBC & BMP: 07/03/17 05:09 07/03/17 05:09 Lab Results: I have reviewed the past 24 hour labs Labs: Laboratory Results - last 24 hr 07/03/17 07/03/17 07/03/17 04:20 05:09 05:09 WBC 16.0 H RBC 3.44 L Hgb 9.5 L Hct 29.5 L MCV 85.8 L MCH 28 MCHC 32.2 RDW 16.7 Plt Count 279 MPV 8.9 L Neut % (Auto) 77.9 H Lymph % (Auto) 8.4 L [place] % (Auto) 6.6 Eos % (Auto) 0.3 Baso % (Auto) 0.5 Neut # (Auto) 12.5 H Lymph # (Auto) 1.4 [place] # (Auto) 1.1 H Eos # (Auto) 0.0 Baso # (Auto) 0.1 Total Counted 100 Immature Gran % 6.3 Nucleated RBC % 0.3 Immature Gran # 1.01 Segmented Neutrophils 81 Lymphocytes 8 L Monocytes 2 Eosinophils 2 Metamyelocytes 3 Myelocytes 4 Nucleated RBCs # 0.04 Platelet Estimate Normal Immature Plt Fraction 0.0 Anisocytosis 1+ Ovalocytes Few INR 1.1 PT Patient/Control Mix 11.4 Circ Anticoag PTT 25.9 Sodium Potassium Chloride Carbon Dioxide Anion Gap BUN Creatinine GFR Calculation BUN/Creatinine Ratio Glucose POC Glucose 132 H Calculated Osmolality Calcium Total Bilirubin AST ALT Alkaline Phosphatase Total Protein Albumin Globulin Albumin/Globulin Ratio 07/03/17 05:09 WBC RBC Hgb Hct MCV MCH MCHC RDW Plt Count MPV Neut % (Auto) Lymph % (Auto) [place] % (Auto) Eos % (Auto) Baso % (Auto) Neut # (Auto) Lymph # (Auto) [place] # (Auto) Eos # (Auto) Baso # (Auto) Total Counted Immature Gran % Nucleated RBC % Immature Gran # Segmented Neutrophils Lymphocytes Monocytes Eosinophils Metamyelocytes Myelocytes Nucleated RBCs # Platelet Estimate Immature Plt Fraction Anisocytosis Ovalocytes INR PT Patient/Control Mix Circ Anticoag PTT Sodium 132 L Potassium 4.6 Chloride 96 L Carbon Dioxide 25 Anion Gap 15.6 H BUN 56 H Creatinine 3.80 H GFR Calculation 10 BUN/Creatinine Ratio 14.00 Glucose 124 H POC Glucose Calculated Osmolality 280.5 Calcium 8.2 L Total Bilirubin 0.40 AST 964 H ALT 366 H Alkaline Phosphatase 81 Total Protein 5.9 L Albumin 2.6 L Globulin 3.3 Albumin/Globulin Ratio 0.7 L - EKG EKG results: interpreted by me
[2017-07-03] MEDS ORDERED: MORPHINE 2 MG/1 ML SYRINGE IV PRN ×2 (10:41)
--- NOTE | 2017-07-03 10:54 | Nephrology Progress Note ---
Nephrology - PN: Subj Interval history: She has had a significant change in mental status overnight. She will open her eyes to voice but does not answer questions. She had transient hypotension during the night. Blood pressure is now stable. Exam (PN)-Nephrology - Vital Signs Vital signs: Period Temp Pulse Resp BP Sys/Pate Pulse Ox Last 24 Hr 96.1 F-97.7 F 61-135 18-20 102-153/51-67 88-98 Exam: Gen.: She is not verbally responsive ENT: Pupils equal round reactive to light. Neck: Supple. No JVD or bruit. Cardiovascular: Regular rate and rhythm. Occasional premature beat Lungs: Clear Abdomen: Soft. Nontender. Positive bowel sounds. No organomegaly Extremities: No edema - Lab 07/03/17 05:09 07/03/17 05:09 Most recent lab results Calcium 8.2 MG/DL (8.5-10.1) L 07/03/17 05:09 Magnesium 2.2 MG/DL (1.8-2.4) 07/02/17 04:15 Assessment and Plan (1) ARF (acute renal failure) Status: Acute Assessment and plan: 81-year-old woman with multiple problems, including chronic renal failure. She has had a significant change in her mental status since yesterday. Renal function is worse. Dr. Perdomo has discussed this with the patient's family. They have requested DNR/comfort care. Current Visit: Yes (2) Arrhythmia Status: Acute Current Visit: Yes (3) Wide-complex tachycardia Status: Acute Current Visit: Yes (4) Chronic renal insufficiency, stage III (moderate) Status: Chronic Current Visit: Yes (5) Coronary artery disease Status: Chronic Current Visit: Yes Qualifiers: Coronary Disease-Associated Artery/Lesion type: [place] artery [place] vs. transplanted heart: [place] heart Associated angina: without angina Qualified Code(s): I25.10 - Atherosclerotic heart disease of [place] coronary artery without angina pectoris
--- NOTE | 2017-07-03 11:09 | CT Report ---
Exam: CT head without intravenous contrast Clinical History: 81-year-old female, speech disturbance, unspecified Technique: Axial computed tomography images of the head/brain without intravenous contrast Comparison: CT head/brain without contrast 06/26/2017 at 2:23 PM Findings: Brain: Scattered microangiopathic small vessel ischemic changes. [place]-white matter distinction maintained. No mass effect. No intra or extra-axial hemorrhage. Ventricles: Unremarkable. No ventriculomegaly. Bones/joints: Calvarium is intact Soft tissues: Unremarkable Sinuses: No active paranasal sinus process Mastoid air cells: Unremarkable visualized. Vasculature: Scattered plaquing along the internal carotid and vertebral arteries Impression: 1. No acute intracranial abnormality. 2. Stable microangiopathic small vessel ischemic changes PROCEDURE INTERPRETED AT [facility] DEPARTMENT OF RADIOLOGY Final Report Signed by: Jose Israel
--- NOTE | 2017-07-03 11:17 | Progress Note ---
Assessment and Plan (1) Pelvic mass in female Status: Acute Assessment and plan: We will draw a CA 125, CEA, CA 19-9. Hopefully these will give us an indication whether or not this benign or malignant. Based on the results we will determine the pursuit of this particular mass. Do not feel this patient surgical candidate. If is benign in nature and she is not have any severe abdominal pain or discomfort as a result of this mass will continue to observe. Thanks for my for the dictation Current Visit: Yes Family Medicine PN Sub Interval history: Still waiting for the CA 125, the CEA and CA 199 are both within normal limits. Considering the size of this mass in the age of the patient most likely results will be a benign tumor. However will have to wait for the CA 125 to make definitive determination. Patient still is not a surgical candidate as long as she is asymptomatic and is doing well at least will have a direction in terms of how to care for this patient in a non-invasive manner if it is positive. Exam (Progress Note) - Constitutional Vitals: Period Temp Pulse Resp BP Sys/Pate Pulse Ox Last 24 Hr 96.1 F-97.7 F 61-135 18-20 102-153/51-67 88-98 Results - Labs CBC & BMP: 07/03/17 05:09 07/03/17 05:09
[2017-07-03] MEDS: METOPROLOL TARTRATE 5 MG/5 ML VIAL IV SCH ×2 (12:38→18:20)
[2017-07-03] MEDS: PROMETHAZINE 25 MG TABLET PO SCH (18:20)
[2017-07-03] MEDS: ASPIRIN EC 81 MG TABLET PO SCH (18:20)
[2017-07-03] MEDS: DULoxetine 30 MG CAPSULE PO SCH (18:20)
[2017-07-03] MEDS: ROSUVASTATIN 20 MG TABLET PO SCH (18:20)
[2017-07-03] MEDS: CLOPIDOGREL 75 MG TABLET PO SCH (18:21)
[2017-07-03 21:49] LABS: Apearance,Urine CLOUDY (Clear); Bilirubin,Urine Negative (Negative); Blood, Urine Small mg/dL (Negative); Glucose,Urine (UA) Negative (Negative); Ketones,Urine Negative (Negative); Nitrite,Urine Negative (Negative); Protein,Urine 100 MG/DL; RBC,Urine 11 /HPF (0-4); Squamous Epithelial Cell,Urine Occasional /HPF (0-10); Urine Color Yellow (Yellow); Urine Urobilinogen < 2.0 EU/DL (0.2-1.0)
[2017-07-03] MEDS: ZALEPLON 5 MG CAPSULE PO SCH (22:04)
[2017-07-04] MEDS: METOPROLOL TARTRATE 5 MG/5 ML VIAL IV SCH ×4 (00:26→17:23)
[2017-07-04] MEDS: LEVOTHYROXINE 75 MCG TABLET PO SCH (09:41)
[2017-07-04] MEDS: DILTIAZEM 60 MG TABLET PO SCH ×2 (09:41→14:28)
[2017-07-04] MEDS: METOPROLOL TARTRATE 100 MG TABLET PO SCH (09:41)
[2017-07-04] MEDS: MEGESTROL 400 MG/10 ML UDCUP PO SCH (09:42)
[2017-07-04] MEDS: TRIAMTERENE/HCTZ 75-50 MG TABLET PO SCH (09:42)
[2017-07-04] MEDS: PANTOPRAZOLE 40 MG TABLET PO SCH (09:42)
[2017-07-04] MEDS: SODIUM CHLORIDE 0.9% 1,000 ML IV SCH (09:43)
--- NOTE | 2017-07-04 11:21 | Cardiology Progress Note ---
Assessment and Plan (1) Pre-syncope Status: Resolved Assessment and plan: SEE PLAN LISTED BELOW Current Visit: Yes (2) Arrhythmia Status: Acute Assessment and plan: SEE PLAN LISTED BELOW Current Visit: Yes (3) Atrial fibrillation Status: Resolved Assessment and plan: SEE PLAN LISTED BELOW Current Visit: Yes Qualifiers: Atrial fibrillation type: paroxysmal Qualified Code(s): I48.0 - Paroxysmal atrial fibrillation (4) Coronary artery disease Status: Chronic Assessment and plan: SEE PLAN LISTED BELOW Current Visit: Yes Qualifiers: Coronary Disease-Associated Artery/Lesion type: [place] artery [place] vs. transplanted heart: [place] heart Associated angina: without angina Qualified Code(s): I25.10 - Atherosclerotic heart disease of [place] coronary artery without angina pectoris (5) Nausea and vomiting Status: Chronic Assessment and plan: SEE PLAN LISTED BELOW Current Visit: Yes (6) Pelvic cyst Status: Chronic Assessment and plan: SEE PLAN LISTED BELOW Current Visit: Yes (7) Leukocytosis Status: Acute Assessment and plan: SEE PLAN LISTED BELOW Current Visit: Yes Cardiology - PN: Subj Interval history: Interval history: Ms. Loo is an 81 WF, admitted for syncope. The patient has had progressive generalized weakness with ongoing anorexia, nausea, and vomiting. The patient was noted to have "SVT" that "broke" with IV Cardizem in the ER. The patient did recognize she was having palpitations at that time. Significant cardiac history includes: coronary artery disease (status post coronary artery bypass grafting in the remote past at [facility] (1989, 2005)), atrial fibrillation, "SVT", hypertension. The last clinic visit with Dr. Cartagena that I can find was in June 2016. The last echocardiogram on record was August 2013 which demonstrated an ejection fraction of 60%. Dr. Barth has been consulted due to wide complex tachycardia. There is also a possible "pelvic mass" discovered on CT accidentally 1 year ago that was never worked up. She has had some ongoing nausea and anorexia, no diarrhea. Denies hematochezia emesis, coffee-ground emesis, melena, or bright red blood per rectum. She is not on anticoagulation. Patient is taking Levaquin after being diagnosed and treated for urosepsis on recent hospitalization. 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 The patient has been maintained on a Cardizem drip, will stop this and start oral metoprolol 100 mg twice daily. We may need to add amiodarone due to renal dysfunction and CAD. Sinus rhythm with occasional ventricular premature complexes rate controlled in the 90s, blood pressure in the normal range. Dr. Barth recommends an EP evaluation when GI workup pelvic mass workup is complete and prognosis is established. If this process is prolonged, LifeVest is recommended due to high risk for sudden cardiac with her presentation. Labs reviewed: WBC is 15,000, H&H 10 and 31; Electrolytes WNL; Creatinine 2.4. JUNE 29, 2017: The patient family has deferred GI workup, and wished to follow -up with Dr. Black at [place] upon discharge. We will consult MEDICAID BUSINESS ANALYST for workup of pelvic cyst that was found on CT scan approximately one year ago. Pelvic ultrasound reveals the patient is status post hysterectomy. There is an indeterminate 92 x 83 x 70 mm cystic masslike finding in the mid pelvis without septations. Finding is thought probably ovarian in nature because of the size. Dr. Barth would like to rule out infection prior to patient undergoing EP evaluation. Labs reveal a white count of 16,000, H&H 1031 which is stable. Electrolytes WNL. Creatinine 2.7, BUN 33. Patient has had sustained wide QRS tachycardia, remains asymptomatic. Plan for EP evaluation with possible ablation on Wednesday. June 30, 2017: Awaiting MEDICAID BUSINESS ANALYST consult for pelvic cyst. Overall, the patient describes not feeling well. She has remained afebrile with the persistent leukocytosis. She is on Levaquin and Macrodantin, as she was previously hospitalized reported urosepsis. Will consult ID for an opinion. The patient also has a very dramatic chest x-ray today with contrast in her colon, and her colon is in her left hemothorax. There appears to be a severe elevation of the left hemidiaphragm. I had a very long discussion with the patient and her son about getting this evaluated. They had a disagreement with Dr. Pond earlier in this hospital stay and I discussed the case with Dr. Calero today. I am going to get a second opinion from him. I am going to check a CT of the chest per his request to assist in evaluation of this abnormality. Our goal is to proceed with the EP study on Wednesday.. Labs reviewed, creatinine 3.0. Sodium 135, potassium 3.4, hemoglobin 9.7, hematocrit 29.7, WBC 16.2. Vital signs have remained stable. Family at bedside and discussed plan of care with the patient and her son. JULY 01, 2017: The patient did well overnight. CT of the chest, abdomen, and pelvis showed a cystic mass within the left adnexa. Evaluation was not possible due to barium within the large bowel, mid interstitial pulmonary edema noted, small sided left pleural effusion, and left hemidiaphragm is elevated with contrast-filled large bowel underlying the hemidiaphragm. We have consulted infectious disease for persistent leukocytosis of unestablished etiology. Gastroenterology has seen the patient for evaluation of numerous GI issues, including nutrition. I appreciate their assistance. Awaiting MEDICAID BUSINESS ANALYST consult for evaluation of pelvic mass. Vital signs have remained stable, pulse rate in the 90s. After labs reviewed today, plan to consult nephrology for slowly rising creatinine. It is up to 3.2 today, with the hyponatremia, sodium 133, BUN 44. Will plan to gently rehydrate the patient with IV fluids, as she is eating and drinking very little. And would appreciate nephrology's assistance. Plan for EP study with Dr. Barth tomorrow around noon, will hold the patient n.p.o. after midnight. 2016: The patient decided this morning that she did not want to go through with an EP study today. This morning she was found to be tachycardic with a heart rate in the 130s. Patient was seen by Dr. Barth this morning who started her on Cardizem. Overall she just does not feel well, and has very little appetite. MEDICAID BUSINESS ANALYST did see the patient for an evaluation of the pelvic cyst, he added a CA 125, CEA, and CA 19-9 to help determine if this abnormality is malignant or benign. His note indicates to to the structural nature of the cyst, it is likely benign. The patient was evaluated by infectious disease, who did not see an obvious source of infection and thought the leukocytosis may be a stress response. I am going to stop all of her antibiotics at this time, she has been on them from her previous admission for urosepsis. Patient has also decided not to pursue an option for PEG tube by GI. As the patient has refused any sort of interventions that we might be able to perform to help, there is little left and in terms of treatment. She is very frail and weak and we will plan to evaluate patient for swing bed options for discharge. 2016: Unfortunately, the patient had a significant mental status change overnight. She has a significant bump in her creatinine, liver function tests, altered mental status, and decreased respiratory drive. We checked a CT of the head to rule out acute bleed or stroke. The final report is still pending but there is no evidence of bleed. I started the patient on heparin. She is already on aspirin and Plavix as well. At the time I was seeing the patient she was unresponsive. She would open her eyes but had no purposeful movements and did not follow commands. I had a long discussion with the patient 's family. I have decided to make her DNR/comfort care. The patient had been telling them that she was tired of suffering which is one reason she had refused all the other treatments we had offered. At this point we are going to shift our management to comfort measures. 2016: Clinically the patient has been relatively stable overnight. Her vitals have been stable. Her rhythm has been stable. She remains largely obtunded and not really responding to instruction. At times she will "cry out" for the Lord to take her. However, she has denied having pain at times when the family would ask her. At this point they have not used morphine to try to keep her comfortable. We discussed that today. If the patient appears to be uncomfortable in any way I think it would be appropriate. Today the patient's family tells me that they "just cannot let her starve" and want to try some sort of nutrition. I think we will start with a Keofed and see if that will work. Current Medications Aspirin () 81 mg PO QPM [facility] Last Admin: 07/03/17 18:20 Dose: Not Given Clopidogrel Bisulfate (Plavix) 75 mg PO QPM [facility] Last Admin: 07/03/17 18:21 Dose: Not Given Diltiazem HCl (Cardizem Tab) 60 mg PO TID [facility] Last Admin: 07/04/17 09:41 Dose: Not Given Duloxetine HCl (Cymbalta) 60 mg PO QPM [facility] Last Admin: 07/03/17 18:20 Dose: Not Given Sodium Chloride (Ns) 1,000 mls @ 20 mls/hr IV .Q24H [facility] Last Admin: 07/04/17 09:43 Dose: Not Given Heparin Sodium/Dextrose () 25,000 units in 500 mls @ 14.182 mls/hr IV TITRATE PARKER; 12 UNITS/KG/HR PRN Reason: Protocol Last Admin: 07/03/17 06:05 Dose: 12 units/kg/hr, 14.18 mls/hr Levothyroxine Sodium (Synthroid Tab) 75 mcg PO DAILY@0700 [facility] Last Admin: 07/04/17 09:41 Dose: Not Given Megestrol Acetate (Megace Liquid) 400 mg PO QAM [facility] Last Admin: 07/04/17 09:42 Dose: Not Given Metoprolol Tartrate (Lopressor Tab) 100 mg PO BID [facility] Last Admin: 07/04/17 09:41 Dose: Not Given Metoprolol Tartrate (Lopressor Inj) 5 mg IV Q6HR [facility] Last Admin: 07/04/17 06:22 Dose: 5 mg Morphine Sulfate () 4 mg IV Q3H PRN PRN Reason: Pain Morphine Sulfate () 2 mg IV Q3H PRN PRN Reason: Pain Ondansetron HCl (Zofran Inj) 4 mg IV Q4H PRN PRN Reason: Nausea/Vomiting Last Admin: 06/27/17 21:57 Dose: 4 mg Pantoprazole Sodium (Protonix Tab) 40 mg PO DAILY [facility] Last Admin: 07/04/17 09:42 Dose: Not Given Potassium Chloride (K Dur) 20 meq PO .PER PROTOCOL PRN; Protocol PRN Reason: Per Protocol Last Admin: 07/01/17 15:36 Dose: 20 meq Promethazine HCl (Phenergan Tab) 25 mg PO QPM [facility] Last Admin: 07/03/17 18:20 Dose: Not Given Rosuvastatin Calcium (Crestor) 40 mg PO QPM [facility] Last Admin: 07/03/17 18:20 Dose: Not Given Triamterene/HCTZ (Maxzide 75-50) [facility] [place] Admin: 07/04/17 09:42 Dose: Not Given Zaleplon (Sonata) 5 mg PO BEDTIME PRN PRN Reason: Sleep Impression and plan: 1. Multi-system organ failure: The patient has neurologic, cardiac, respiratory , liver function, and renal compromise. During this hospital stay she has refused all potential interventions that might help. She has told the family that she is tired of suffering and is ready to pass. The patient's family has requested that we make her DNR and just keep her comfortable at this time. 2. Arrhythmia-wide complex tachycardia, we have adjusted her medication and this is well controlled now. An EP study was planned on Wednesday, but the patient refused this procedure. 3. Leukocytosis-significance of this is unknown, blood cultures and urine culture negative at 48 hours. We consulted ID. I have discussed the case with Dr. Guzman Wang. She does not see any obvious source of ongoing infection and she suspects the white count is simply stress response. 4. Renal insufficiency-this has been gradually worsening and she has developed mild hyponatremia as well, mid pelvic mass 92 X 83 X 70 mm; atrophic left kidney with small cysts. 5. Subacute ongoing nausea and anorexia. This is a chronic issue related to previous abdominal surgeries and extensive pathology. She has refused any sort of procedure to try to improve this, although the patient's family wants us to try tube feeding at this time. 6. Generalized debility- We will need to get her evaluated for swing bed placement or LTAC. 7. History of coronary artery disease-I suspect that this pathology is somewhat stable based on her history, cardiac biomarkers negative. Exam (Progress Note) - Constitutional Vitals: Period Temp Pulse Resp BP Sys/Pate Pulse Ox Last 24 Hr 96.6 F-97.4 F 80-101 16-22 99-141/32-68 97-100 Exam: General: Frail, elderly, chronically ill-appearing, unresponsive HEENT: Normocephalic, atraumatic Neck: No JVD Cardiac: Regular rhythm, 2/6 systolic murmur, no gallop, no rub Lungs: Uncooperative exam with no overt rales or wheeze Neuro: The patient is unresponsive at this time Abdomen: Soft, Active Bowel Sounds, No Masses, No Pulsations/Bruits Skin: Normal color, no rash Extremities: No Clubbing, No Cyanosis, No Edema, Normal Upper Extr. Pulses Musculoskeletal: The patient is not moving/following commands at this time Result/EKG - Labs CBC & BMP: 07/03/17 05:09 07/03/17 05:09 Lab Results: I have reviewed the past 24 hour labs Labs: Laboratory Results - last 24 hr 07/02/17 07/03/17 07/03/17 04:15 12:11 19:21 Circ Anticoag PTT 56.2 H D 58.6 H CA 125 Antigen 89 H Urine Color Urine Appearance Urine pH Ur Specific [place] Urine Protein Urine Glucose (UA) Urine Ketones Urine Blood Urine Nitrate Urine Bilirubin Urine Urobilinogen Urine Leukocytes Urine RBC Ur Squamous Epith Cells Ur Culture Indicated? 07/03/17 21:27 Circ Anticoag PTT CA 125 Antigen Urine Color Yellow Urine Appearance Cloudy Urine pH 5.0 Ur Specific [place] 1.010 Urine Protein 100 Urine Glucose (UA) Negative Urine Ketones Negative Urine Blood Small Urine Nitrate Negative Urine Bilirubin Negative Urine Urobilinogen < 2.0 H Urine Leukocytes Negative Urine RBC 11 Ur Squamous Epith Cells Occasional Ur Culture Indicated? Not indicated - EKG EKG results: interpreted by me
--- NOTE | 2017-07-04 14:37 | Nephrology Progress Note ---
Nephrology - PN: Subj Interval history: She remains confused. Blood pressure is stable Exam (PN)-Nephrology - Vital Signs Vital signs: Period Temp Pulse Resp BP Sys/Pate Pulse Ox Last 24 Hr 96.5 F-97.4 F 80-101 16-22 99-149/32-65 87-100 Exam: Gen.: She is not verbally responsive ENT: Pupils equal round reactive to light. Neck: Supple. No JVD or bruit. Cardiovascular: Regular rate and rhythm. Occasional premature beat Lungs: Clear Abdomen: Soft. Nontender. Positive bowel sounds. No organomegaly Extremities: No edema - Lab 07/03/17 05:09 07/03/17 05:09 Most recent lab results Calcium 8.2 MG/DL (8.5-10.1) L 07/03/17 05:09 Magnesium 2.2 MG/DL (1.8-2.4) 07/02/17 04:15 Assessment and Plan (1) ARF (acute renal failure) Status: Acute Assessment and plan: 81-year-old woman with multiple problems, including chronic renal failure. She remains quite confused and poorly responsive. No lab was done today. She is receiving comfort care. Agree with morphine as needed. Current Visit: Yes (2) Arrhythmia Status: Acute Current Visit: Yes (3) Wide-complex tachycardia Status: Acute Current Visit: Yes (4) Chronic renal insufficiency, stage III (moderate) Status: Chronic Current Visit: Yes (5) Coronary artery disease Status: Chronic Current Visit: Yes Qualifiers: Coronary Disease-Associated Artery/Lesion type: [place] artery [place] vs. transplanted heart: [place] heart Associated angina: without angina Qualified Code(s): I25.10 - Atherosclerotic heart disease of [place] coronary artery without angina pectoris
--- NOTE | 2017-07-04 16:04 | XRay Report ---
Portable chest July 04, 2017 Indication: Tube placement Comparison CT performed June 30, 2017 Findings: Dobbhoff tube is satisfactorily placed overlying the gastric lumen displaced into the left chest secondary to elevation of left hemidiaphragm. Atelectasis of the left lower lobe. Coarsened interstitial opacities throughout the right lung with small right pleural effusion. Contrast resides within the colon. Multiple clips dispersed throughout the abdomen. Extensive atheromatous plaquing. Impression: 1. Technically successful Dobbhoff tube placement 2. Atelectasis of the left lower lobe with marked elevation left hemidiaphragm, unchanged in appearance 3. Marked coarsening of interstitial pattern suggests some degree of cardiac decompensation 4. Small right pleural effusion with basilar atelectasis PROCEDURE INTERPRETED AT [facility] DEPARTMENT OF RADIOLOGY Final Report Signed by: Jose Israel
--- NOTE | 2017-07-04 16:09 | Neurology Consult Note ---
History of Present Illness History of present illness: History obtained mainly from patient's daughter somewhat from the patient but also from review of her records. Ms. 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 She presented to hospital week ago after a syncopal episode. She been in and out of hospital for only 1 week prior for UTI treated with IV antibiotics in the hospital for about 5 days. She has not had any fever throughout the admission but she has been quite sickly, malaised, quite dyspneic. She was noted to have significant elevation of left hemidiaphragm with herniation of bowels into left chest. No cough but today she looks very debilitated and sick. She is quite anorexic but no nausea vomiting or diarrhea in the hospital. She says she did have few episodes of vomiting prior to admission. Wednesday night she suddenly developed speech difficulties. Since that she is sort of obtunded however following simple commands when she is awake. IV heparin was started. A CT of the head reveals no acute abnormalities yesterday. She is on nonrebreather oxygen mask Home Medications Medication Instructions Recorded Confirmed Type Aspirin EC Tab 81 mg PO QPM 06/26/17 06/26/17 History Clopidogrel [Plavix] 75 mg PO QPM 06/26/17 06/26/17 History Duloxetine HCl [Duloxetine] 60 mg PO QPM 06/26/17 06/26/17 History Esomeprazole Magnesium 40 mg PO BID 06/26/17 06/26/17 History [Esomeprazole] Levofloxacin Tab [Levaquin Tab] 500 mg PO Q48H 06/26/17 06/26/17 History Levothyroxine Tab [Synthroid Tab] 75 mcg PO DAILY@0700 06/26/17 06/26/17 History Megestrol Liquid [Megace Liquid] 400 mg PO QAM 06/26/17 06/26/17 History Metoprolol Tartrate 25 mg PO BID 06/26/17 06/26/17 History Nitrofurantoin Macrocrystal 100 mg PO BID 06/26/17 06/26/17 History [Nitrofurantoin] Promethazine HCl 25 mg PO QPM 06/26/17 06/26/17 History Rosuvastatin Calcium [Crestor] 40 mg PO QPM 06/26/17 06/26/17 History Triamterene/Hctz 75-50 Tab 1 tablet PO QAM 06/26/17 06/26/17 History [Maxzide 75-50] Zolpidem Tartrate 10 mg PO BEDTIME 06/26/17 06/26/17 History amLODIPine [Norvasc] 5 mg PO QAM 06/26/17 06/26/17 History Allergies Allergy/AdvReac Type Severity Reaction Status Date / Time Sulfa (Sulfonamide Allergy Unknown/Unable Verified 06/26/17 14:07 Antibiotics) to obtain mycin Allergy Unknown/Unable Uncoded 06/26/17 14:07 to obtain ROS unobtainable: due to mental status Medical,Surgical,& Family Hx - Medical History Cardio: History of: Cardiac Dysrhythmia, CAD, Hypertension Neurology: History of: TIA No history of: Seizures Respiratory: History of: Respiratory Problems (only has the left lung) - Surgical History Cardiac Surgeries: Sugical HX of: Cardiac Surgery (2 triple bypass) - Social History Smoking Status: Never smoker Frequency of Alcohol Use: None Type of Drug Use: None Exam - Constitutional Vitals: Period Temp Pulse Resp BP Sys/Pate Pulse Ox Last 24 Hr 96.5 F-97.2 F 80-101 16-22 99-149/47-65 87-99 Exam: GENERAL: Patient is in no acute distress. NECK: Neck is supple. There is no JVD. No carotid bruits present. No thyroid masses. CVS: First and second heart sounds are normal. There is no S3 present. Regular rate and rhythm. RESPIRATORY: Lungs are clear to auscultation without any rales or rhonchi. ABDOMEN: Soft and non-tender. Bowel sounds are present. There is no hepatosplenomegaly. EXT: There is no palpable edema. Peripheral pulses are present. Skin: No rashes Central Nervous system: General: Awake Speech: None Comprehension: Impaired Facial expressions: Normal Cranial Nerves: Pupils are sluggish but reactive. Doll's head eye movements are positive. No facial asymmetry is seen. Motor: Bulk and Tone is normal. Strength cannot be assessed Sensory: Cannot be assessed Reflexes: 1+ and symmetrical Cerebellar function: Cannot be assessed. Toes: Equivocal Gait: Cannot be assessed Results - Labs CBC & BMP: 07/03/17 05:09 07/03/17 05:09 Assessment and Plan (1) Acute CVA (cerebrovascular accident) Status: Acute Assessment and plan: History and exam tested for possible left MCA acute CVA Continue IV heparin Discussed at length with patient's family and they would like to have a conservative management at this point We will go ahead and do CT of the head without contrast in the morning Consult PT OT and ST Thank you for the consult Current Visit: Yes
[2017-07-04] MEDS: HEPARIN DRIP 25,000 UNITS/500 ML PREMIX IV SCH (17:03)
[2017-07-04] MEDS: PROMETHAZINE 25 MG TABLET PO SCH (18:25)
[2017-07-04] MEDS: ASPIRIN EC 81 MG TABLET PO SCH (18:25)
[2017-07-04] MEDS: ROSUVASTATIN 20 MG TABLET PO SCH (18:25)
[2017-07-04] MEDS: CLOPIDOGREL 75 MG TABLET PO SCH (18:26)
[2017-07-04] MEDS: DULoxetine 30 MG CAPSULE PO SCH (18:26)
[2017-07-05] MEDS: DILTIAZEM 60 MG TABLET PO SCH (00:18)
[2017-07-05] MEDS: METOPROLOL TARTRATE 100 MG TABLET PO SCH (00:18)
[2017-07-05 00:20] VITALS: BP 60/28
--- NOTE | 2017-07-23 07:56 | Physician Query Form ---
CLICK EDIT DOCUMENT TO SELECT QUERY ANSWER --> OK --> SIGN Brooke Knox RN, CCDS Certified Clinical Wellness Consultant W) [phone] (f) [phone] [email or web address]: Make your selection(s) from the choices in EACH section by typing an "x" and enter comments in the comment section. Please use your independent medical judgment in providing your response. This request does not imply that any particular answer is desired or expected. CLINICAL INDICATORS: (Providers should not edit this section) The medical record indicates that the patient was admitted with syncope, SVT, on the 2nd: "02 88% 3 L NC"- "87% 4LNC", Later "Non-rebreather applied to patient 100%", on the 3rd: "o2 85% on 100% non-rebreather" and on the 4th: "agonal breathing noted". On the 2nd: "She was hypoxic earlier today, despite facemask, now saturation back to 100%". If possible, please further clarify the type and acuity of respiratory diagnosis : ACUITY: (x) Acute ( ) Chronic ( ) Acute on Chronic TYPE: (x) Respiratory failure with hypoxia ( ) Respiratory failure with hypercapnia ( ) Respiratory Arrest ( ) Postprocedural/postoperative respiratory failure ( ) Respiratory Insufficiency ( ) ARDS (Adult/Acute Respiratory Distress Syndrome) ( ) Other, please specify: ( ) Clinically unable to determine Recognized criteria for respiratory failure PH <7.35 or >7.45 PO2 <60 PCO2 >50 RR >24 O2 Sat <90% on RA or <95% on O2 Use of accessory muscles Unable to speak in full sentences Intubation is not required COMMENTS: PLEASE ALSO DOCUMENT RESPONSE IN PROGRESS NOTES AND/OR DISCHARGE SUMMARY Use of terms such as suspected, likely, or probable (associated with a specific diagnosis that is being evaluated, monitored, or treated as if it exists) are acceptable and can be restated in the discharge summary if not ruled out. MTDD
== END 2017-07-04 23:42 | disposition expired | DRG 308 ==
LOC: EDUNIT# → N.ED 13:58 → N.EDINP 15:19 → N.TELES 16:14
PROVIDERS: ADMIT Internal Medicine Cardiovascular Disease; ATTEND Internal Medicine Cardiovascular Disease